=== PATIENT | male | born 1980 | race Caucasian/White ===

== ENCOUNTER 2017-01-26 01:47 | Emergency (ER) | payer SELFPAY ==
[~2017-01-26] VITALS: Ht 180.3 cm; Wt 67.6 kg
[~2017-01-26 01:47] MED LIST: CEPH-570 PO
[2017-01-26 01:51] VITALS: TEMP 36.7; Ht 180.3 cm; Wt 67.6 kg
[2017-01-26] MEDS ORDERED: XYLOCAINE 1%/SOD BICARB 20 ML VIAL INFIL ONE (02:30)
[2017-01-26] MEDS ORDERED: DIPHTHERIA/TETANUS/PERTUSSIS 0.5 ML SYR/VIAL IM. ONE (02:30)
--- NOTE | 2017-01-26 02:52 | EMERGENCY ROOM VISIT NOTE ---
ED Visit Note First contact with patient: 02:10 CHIEF COMPLAINT: Finger laceration HISTORY OF PRESENT ILLNESS: This 36-year-old male patient presents to the emergency department by private vehicle after cutting the right second finger just prior to arrival. The patient states that his was trying to cut her wrist and he accidentally cut himself on the knife when trying to wrestle it away from her. The bleeding has stopped. Denies weakness or numbness of the finger. The patient has full range of motion of the fingers. The patient rates the pain as stinging and 1/10. The patient denies any other injuries. The patient's tetanus shot is not up to date. REVIEW OF SYSTEMS: A 6 system review of systems was completed with positives and pertinent negatives listed in the HPI. ALLERGIES: No known drug allergies MEDICATIONS: No chronic medications PMH: No significant past medical history SOCIAL HISTORY: The patient lives locally with family. PHYSICAL EXAM: Vital Signs: Reviewed Nurse's notes, vital signs stable. GENERAL : This is a 36-year-old male, in no acute distress, well developed, well nourished. SKIN: There is a 1.5 cm long laceration on the lateral aspect of the right second finger. The edges gape apart with traction. There is no foreign material in the wound and it looks clean. There is no active bleeding. No deep structures such as tendons, bones, or significant blood vessels are seen in the base of the wound. Extension and flexion of the finger is full and strong. Full range of motion of the wrist and other fingers. Capillary refill less than 2 seconds. Normal sensation to light and sharp touch. EMERGENCY DEPARTMENT COURSE: I examined the patient. Verbal consent was obtained to perform the procedure. Using sterile technique the wound was cleansed with Betadine. 2 ml of 1% buffered lidocaine was injected directly into the wound to anesthetize the patient. The area was sterilely draped. Once the patient was anesthetized, the wound was copiously irrigated under pressure with sterile saline. The wound was explored and there were no deep structures injured. The laceration was repaired using 5 simple interrupted 5-0 nylon sutures. The patient tolerated the procedure well. Hemostasis was achieved. The area was cleaned with sterile saline and dressed with bacitracin ointment and bandage. The patient was given a tetanus booster. The patient was discharged home in good condition. Medication reconciliation: I attest that I have personally reviewed the patient 's current medication list. Blood pressure screening: Patient was found to have normal blood pressure on screening and does not require follow-up. DIAGNOSIS: Finger laceration Problem List Medical Problems: (1) Cellulitis of leg Status: Resolved (2) Poison solomon Status: Resolved Surgical Problems: (1) S/P appendectomy Status: Resolved Current/Historical Medications No Active Prescriptions or Reported Meds Allergies Coded Allergies: No Known Allergies (Verified , 01/26/17) Vital Signs Date Time Temp Pulse Resp B/P (MAP) Pulse Ox O2 Delivery O2 Flow Rate FiO2 01/26/17 03:15 83 126/82 96 01/26/17 01:51 36.7 97 18 122/92 98 Room Air Medications Administered Medications (Trade) Dose Ordered Sig/Matilde Route Start Time Stop Time Status Last Admin Dose Admin Diphtheria/ Pertussis/Tetanus Vacc (Adacel Inj) 0.5 ml ONCE ONCE IM. 01/26/17 02:30 01/26/17 02:31 DC 01/26/17 02:30 0.5 ML Departure Information Impression Primary Impression: Laceration of finger Dispostion Home / Self-Care Condition GOOD Prescriptions No Active Prescriptions or Reported Meds Referrals No Doctor, Assigned (PCP) Patient Instructions My [facility] Additional Instructions You have received 5 sutures on your finger. These sutures are NOT dissolvable and WILL need to be removed by a health care provider in 10-12 days. You can return to the Emergency Department or contact your Primary Care Provider to have the sutures removed. Proper wound care is essential for adequate wound healing and infection prevention. You can shower and clean the wound with soap and water. Do not scour over the wound, pat dry with a towel. Do not submerse the wound (i.e. bathe or dish wash) until the sutures have been removed. You can use an antibiotic ointment with a dressing over the wound for the next 3-4 days. After this time you may leave the wound dry and open to the air. If crust develops over the wound you can use a Q-tip to apply a 1:1 peroxide:water solution to clean the wound. Look for signs of infection of the wound including: increased pain, swelling, foul discharge, streaking, or increased temperature. If any of these are noticed you should return to the Emergency Department for further assessment and treatment. As with any laceration you may have received nerve damage to the surrounding tissues. This damage may or may not be permanent. You should keep the area covered with sunscreen for the first 6 months to 1 year when at risk for exposure to help minimize scarring. You can also use scar reducing creams or Vitamin E oil to help minimize scarring. For pain control, you can use the following [id number] medicines (if >12 yo): - Regular strength (325mg/tab) Tylenol (acetaminophen) 2 tabs every 4-6 hours as needed. Do not exceed 12 tablets in a 24 hour period. Avoid taking more than 4 grams (4000 mg) of Tylenol per day. This includes any other sources of acetaminophen you may take on a regular basis. - Regular strength (200 mg/tab) Advil (ibuprofen) 1-2 tabs every 4-6 hours as needed. Do not exceed a dose of 3200 mg per day. Return to the emergency department if your symptoms worsen despite treatment course outlined above. Problem Qualifiers Primary Impression: Laceration of finger Encounter type: initial encounter Finger: index finger Damage to nail status: without damage Foreign body presence: without foreign body Laterality: right Qualified Codes: S61.210A - Laceration without foreign body of right index finger without damage to nail, initial encounter
[2017-01-26 03:15] VITALS: BP 126/82; PULSE 83; O2SAT 96
== END 2017-01-26 03:15 | disposition home or self-care (01) ==
LOC: C.EDB 01:48
DX: S61.210A Laceration without foreign body of right index finger without damage to nail, initial encounter (principal); W26.0XXA Contact with knife, initial encounter; Z23 Encounter for immunization

== ENCOUNTER → 2017-02-25 | Outpatient (CLI) | payer OTHER | END | disposition home or self-care (01) | LOC: C.LAB 04:09 | DX: Z02.83 Encounter for blood-alcohol and blood-drug test (principal) ==

== ENCOUNTER 2020-10-13 19:44 | Inpatient (IN) ==
--- OUTSIDE RECORDS SUMMARY | 2020-10-13 19:46 | External Medical Summary | Continuity of Care Document ---
:1980 Author Name Ronnie Patricio, Provider Address Unavailable Unavailable , Care Team Providers Name Role Phone [place] Jos[email or web address] [place], [place] Unavailable Unavailable Problems Infected epidermoid cyst (706.2) (L72.0) Allergies and Adverse Reactions No Known Drug Allergies (Allergy) Medications Bactrim DS 800-160 MG Oral Tablet Start: 11-Dec-2015 Refills: 0 Procedures History of Appendectomy Status: Complete d Immunizations Immunizations not documented Family History Mother No pertinent family history (V49.89) (Z78.9) Status: Active Father No pertinent family history (V49.89) (Z78.9) Status: Active Social History - Smoking Status Smokes tobacco daily Plan of Treatment Planned Observations Planned Goals not documented Results No Known Results Results not documented Encounters Appointment; Fina Joshi M.D. 11-Mar-2016 13:00 Encounter Diagnosis: Problem not documented
--- OUTSIDE RECORDS SUMMARY | 2020-10-13 19:46 | External Medical Summary | Continuity of Care Document ---
:1980 Author Name Ronnie Patricio, Provider Address Unavailable Unavailable , Care Team Providers Name Role Phone Fina Joshi [email or web address] [place] PCP, UNKNOWN Unavailable Unavailable Problems Infected epidermoid [...]
[2020-10-13] MEDS ORDERED: SODIUM CHLORIDE 0.9% 1000ML 1,000 ML IV ONE ×2 (20:57→23:25)
[2020-10-13] MEDS ORDERED: ONDANSETRON INJ 2 MG/ML 2 ML VIAL IV STA ×2 (20:57→23:25)
[2020-10-13] MEDS ORDERED: MoRPHine SULFATE 4 MG/ML 1 ML CARP\\VIAL IV STA ×2 (20:57→23:25)
[2020-10-13 22:13] LABS: INR 1.2 (0.9-1.1); Partial Thromboplastin Ratio 1.1; Partial Thromboplastin Time 27.9 Seconds (21.0-31.0); Prothrombin Time 11.9 Seconds (9.0-12.0)
[2020-10-13 22:21] LABS: Hematocrit (blood only) 38.1 % (42-52); Hemoglobin 13.7 g/dL (14.0-18.0); Mean Corpuscular Hemoglobin 36.5 pg (25-34); Mean Corpuscular Volume 101.6 fL (80-100); Mean Platelet Volume 10.9 fL (7.4-10.4); Platelet Count 93 K/uL (130-400); RDW Coefficient of Variation 14.2 % (11.5-14.5); RDW Standard Deviation 52.3 fL (36.4-46.3); Red Blood Count 3.75 M/uL (4.7-6.1); White Blood Count 9.71 K/uL (4.8-10.8)
[2020-10-13 22:23] LABS: Basophils # (auto) 0.01 K/uL (0-0.2); Basophils % (auto) 0.1 %; Immature Granulocytes # (auto) 0.03 K/uL (0.00-0.02); Immature Granulocytes % (auto) 0.3 %; Lymphocytes # (auto) 1.05 K/uL (1.2-3.4); Lymphocytes % (auto) 10.8 %; Monocytes # (auto) 1.28 K/uL (0.11-0.59); Monocytes % (auto) 13.2 %; Neutrophils # (auto) 7.34 K/uL (1.4-6.5); Neutrophils % (auto) 75.6 %; Platelet Estimate Decreased (Normal)
[2020-10-13 22:29] LABS: Albumin Level 3.2 gm/dl (3.4-5.0); BUN Creatinine Ratio 10.5 (10-20); Bilirubin Direct 7.3 mg/dl (0-0.2); Bilirubin,Total 8.9 mg/dl (0.2-1); Calcium 10.1 mg/dl (8.5-10.1); Creatinine Clr Calc Pharmacy 137.8 ml/min; Est GFR (African American) 140.2; Est GFR (Non-African American) 120.9; Magnesium 1.6 mg/dl (1.8-2.4); Total Protein 7.5 gm/dl (6.4-8.2)
--- NOTE | 2020-10-14 00:20 | Emergency Department Note ---
History of Present Illness General Chief Complaint: Abdominal Pain Stated Complaint: ABDOMINAL PAINS, CAN'T EAT Time Seen by Provider: 10/13/20 20:32 History of Present Illness Provider Complaint: abdominal pain Onset (ago): 3 day(s) Pain Consistency: constant Location: diffuse Severity: moderate Maximum Pain Intensity: 8 Current Pain Intensity: 8 Quality: + stabbing and + sharp Relieved By: + nothing Exacerbated By: + nothing Context: no foreign travel, no possible food poisoning, no recent antibiotic use and no recent surgery/procedure Associated Symptoms: + nausea, + vomiting and + hematemesis (Possible coffee- ground emesis); no diarrhea, no fever, no chills, no constipation, no dysuria, no hematochezia, no melena, no hematuria, no headache, no neck pain, no back pain and no chest pain Home Medications Medication Instructions Recorded Confirmed Type ibuprofen 200 mg PO Q6H PRN 10/13/20 10/13/20 History multivitamin [Multiple Vitamin] 1 tab PO DAILY 10/13/20 10/13/20 History Allergies Allergy/AdvReac Type Severity Reaction Status Date / Time No Known Allergies Allergy Unknown Verified 10/13/20 22:02 Past Med/Surg History Medical History (Updated 10/14/20 @ 01:06 by Baltazar Rucker) Erythema migrans (Lyme disease) No pertinent family history Surgical History (Updated 10/14/20 @ 00:18 by Baltazar Rucker) No pertinent past surgical history Social History (Updated 10/14/20 @ 00:19 by Baltazar Rucker) Smoking Status: Current every day smoker Hx Alcohol Use: Yes Alcohol type: hard liquor Alcohol Intake Frequency Comment: Patient drinks a quarter bottle of rum every day Preferred Language: Hebrew Feels Safe at Home: Yes Review of Systems A total of 10 systems reviewed and were otherwise negative Physical Exam Vital Signs: Vital Signs - 24 hr 10/13/20 19:45 10/13/20 21:30 10/13/20 21:34 Temperature 36.6 C Temperature Source Oral Pulse Rate 110 H 103 H 101 H Pulse Rate from Sp O2 Sensor 103 H 101 H Pulse Rhythm Regular Pulse Strength Normal Respiratory Rate 20 20 18 Respiratory Effort / Characteristics Non-Labored Sponta neous Respiratory Depth Normal Respiratory Patter n Regular Blood Pressure 113/82 139/95 Blood Pressure Joana n 92 109 Blood Pressure Pos ition Sitting Pulse Oximetry 96 97 98 Oxygen Delivery Me thod Room Air Sepsis Recent Feve r Within 48 Hours No Sepsis New/Unexpla ined Change in Men ana Status No Sepsis Action Take n by Nursing No Action Required 10/13/20 21:40 10/13/20 21:42 10/13/20 22:00 Temperature Temperature Source Pulse Rate 98 H 95 H Pulse Rate from Sp O2 Sensor 97 H 95 H Pulse Rhythm Pulse Strength Respiratory Rate 13 15 Respiratory Effort / Characteristics Respiratory Depth Respiratory Patter n Blood Pressure 142/91 H Blood Pressure Joana n 108 Blood Pressure Pos ition Pulse Oximetry 96 99 97 Oxygen Delivery Me thod Room Air Sepsis Recent Feve r Within 48 Hours Sepsis New/Unexpla ined Change in Men ana Status Sepsis Action Take n by Nursing 10/13/20 22:01 10/13/20 22:20 10/13/20 22:30 Temperature Temperature Source Pulse Rate 95 H 99 H 105 H Pulse Rate from Sp O2 Sensor 95 H 98 H 102 H Pulse Rhythm Pulse Strength Respiratory Rate 13 19 16 Respiratory Effort / Characteristics Respiratory Depth Respiratory Patter n Blood Pressure 136/101 H Blood Pressure Joana n 112 Blood Pressure Pos ition Pulse Oximetry 96 98 97 Oxygen Delivery Me thod Sepsis Recent Feve r Within 48 Hours Sepsis New/Unexpla ined Change in Men ana Status Sepsis Action Take n by Nursing 10/13/20 22:40 10/13/20 23:00 10/13/20 23:30 Temperature Temperature Source Pulse Rate 118 H 104 H 104 H Pulse Rate from Sp O2 Sensor 117 H 102 H 101 H Pulse Rhythm Pulse Strength Respiratory Rate 22 12 13 Respiratory Effort / Characteristics Respiratory Depth Respiratory Patter n Blood Pressure 135/95 138/91 Blood Pressure Joana n 108 106 Blood Pressure Pos ition Pulse Oximetry 96 96 97 Oxygen Delivery Me thod Sepsis Recent Feve r Within 48 Hours Sepsis New/Unexpla ined Change in Men ana Status Sepsis Action Take n by Nursing Physical Exam: Physical Exam GENERAL: He is oriented to person, place, and time. He appears well-developed and well-nourished. He does not appear distressed. HENT: Exam performed. - Head: Normocephalic and atraumatic. - Right Ear: External ear normal. No mastoid tenderness. - Left Ear: External ear normal. No mastoid tenderness. - Mouth/Throat: The oropharynx is clear and moist. No trismus in the jaw. No dental abscesses or uvula swelling. No oropharyngeal exudate or tonsillar abscesses. EYES: Conjunctivae and EOM are normal. Pupils are equal, round, and reactive to light. Right eye exhibits no discharge. Left eye exhibits no discharge. scleral icterus Present. NECK: Normal range of motion. Neck supple. No JVD present. No spinous process tenderness present. No carotid bruit present. No rigidity. No tracheal deviation and normal range of motion present. No Brudzinski's sign and no Kernig's sign noted. CV: Normal rate, regular rhythm, normal heart sounds and intact distal pulses. There is no peripheral edema. Palpable radial pulses bue. PULM/CHEST: Effort normal and breath sounds normal. No respiratory distress. No stridor. He has no wheezes. He has no rales. - Chest Wall: He exhibits no tenderness. ABD: Diffuse pain on palpation of the abdomen. MUSC/SKEL: Normal range of motion. There is no peripheral edema, tenderness or deformity. LYMPH: No cervical adenopathy. NEURO: He is alert and oriented to person, place, and time. He has normal strength. No cranial nerve deficit or sensory deficit. Coordination and gait normal. GCS eye subscore is 4. GCS verbal subscore is 5. GCS motor subscore is 6 . Cerebellar tests wnl. SKIN: Patient appears jaundiced. PSYCH: He has a normal mood and affect. Behavior is normal. Judgment and thought content normal. Course Course 2031: The patient was evaluated in room C6. A complete history and physical exam was performed Cardiac monitoring: An order was placed for continuous cardiac monitoring. The monitor shows a rate of 110 with sinus rhythm 2325: Vital signs stable. Patient has not had any vomiting in the emergency department status post Zofran administration. Labs show an elevated lipase of 4543. Patient does have an alcohol level of 201.7. He does state he drank alcohol prior to coming to the emergency department. Bilirubin level is 8.9. Direct bilirubin 7.3. AST 247 ALT 57. [facility] Garcia's team will be notified. 0105: CT of the abdomen does confirm pancreatitis. Potassium and magnesium replacement began in the emergency department. Administered Medications Magnesium Sulfate/Dextrose (Magnesium Sulfate / D5w) 1 gm in 100 mls @ 100 mls/hr IV NOW STA Stop: 10/14/20 01:25 Last Admin: 10/14/20 00:41 Dose: 100 mls/hr Documented by: [id number] Discontinued Medications Sodium Chloride (Nss 1000ml) 1,000 mls @ 999 mls/hr IV .Q1H1M ONE Stop: 10/13/20 21:57 Last Infusion: 10/13/20 22:36 Dose: 0 mls/hr Documented by: [id number] Admin: 10/13/20 21:28 Dose: 999 mls/hr Documented by: [id number] Sodium Chloride (Nss 1000ml) 1,000 mls @ 999 mls/hr IV .Q1H1M ONE Stop: 10/14/20 00:25 Last Admin: 10/13/20 23:34 Dose: 999 mls/hr Documented by: [id number] Ioversol (Ioversol 100ml) 100 ml IV ONCE ONE Stop: 10/14/20 00:43 Last Admin: 10/14/20 00:42 Dose: 92 ml Documented by: [id number] Morphine Sulfate (Morphine Sulfate 4 Mg/Ml 1 Ml Carp\Vial) 4 mg IV NOW STA Stop: 10/13/20 20:58 Last Admin: 10/13/20 21:28 Dose: 4 mg Documented by: [id number] Morphine Sulfate (Morphine Sulfate 4 Mg/Ml 1 Ml Carp\Vial) 4 mg IV NOW STA Stop: 10/13/20 23:26 Last Admin: 10/13/20 23:34 Dose: 4 mg Documented by: [id number] Ondansetron HCl (Ondansetron Inj 2 Mg/Ml 2 Ml Vial) 4 mg IV NOW STA Stop: 10/13/20 20:58 Last Admin: 10/13/20 21:28 Dose: 4 mg Documented by: [id number] Ondansetron HCl (Ondansetron Inj 2 Mg/Ml 2 Ml Vial) 4 mg IV NOW STA Stop: 10/13/20 23:26 Last Admin: 10/13/20 23:34 Dose: 4 mg Documented by: [id number] Medical Decision Making Laboratory Data Result diagrams: 10/13/20 21:22 10/13/20 21:22 Lab Results 10/13/20 10/13/20 10/13/20 Range/Units 21:19 21:22 21:22 WBC 9.71 (4.8-10.8) K/uL RBC 3.75 L (4.7-6.1) M/uL Hgb 13.7 L (14.0-18.0) g/dL Hct 38.1 L (42-52) % MCV 101.6 H (80-100) fL MCH 36.5 H (25-34) pg MCHC 36.0 (32-36) g/dL RDW Std Deviation 52.3 H (36.4-46.3) fL RDW Coeff of Arabella 14.2 (11.5-14.5) % Plt Count 93 L (130-400) K/uL MPV 10.9 H (7.4-10.4) fL Immature Gran % (Auto) 0.3 % Neut % (Auto) 75.6 % Lymph % (Auto) 10.8 % [place] % (Auto) 13.2 % Eos % (Auto) 0.0 % Baso % (Auto) 0.1 % Neut # (Auto) 7.34 H (1.4-6.5) K/uL Lymph # (Auto) 1.05 L (1.2-3.4) K/uL [place] # (Auto) 1.28 H (0.11-0.59) K/uL Eos # (Auto) 0.00 (0-0.5) K/uL Baso # (Auto) 0.01 (0-0.2) K/uL Immature Gran # (Auto) 0.03 H (0.00-0.02) K/uL Platelet Estimate Decreased L (Normal) PT (9.0-12.0) Seconds INR (0.9-1.1) APTT (21.0-31.0) Seconds PTT Ratio Sodium (136-145) mmol/L Potassium (3.5-5.1) mmol/L Chloride (98-107) mmol/L Carbon Dioxide (21-32) mmol/L Anion Gap (3-11) BUN (7-18) mg/dl Creatinine (0.6-1.4) mg/dl Est Cr Clr Drug Dosing ml/min Est GFR ( Amer) Est GFR (Non-Af Amer) BUN/Creatinine Ratio (10-20) Glucose (70-99) mg/dl POC Glucose 134 H (70-99) mg/dl Calcium (8.5-10.1) mg/dl Magnesium (1.8-2.4) mg/dl Total Bilirubin (0.2-1) mg/dl Direct Bilirubin (0-0.2) mg/dl AST (15-37) U/L ALT (12-78) U/L Alkaline Phosphatase (45-117) U/L Total Protein (6.4-8.2) gm/dl Albumin (3.4-5.0) gm/dl Lipase (73-393) U/L Urine Color Urine Appearance (Clear) Urine pH (4.5-7.5) Ur Specific [place] (1.000-1.030) Urine Protein (Negative) Urine Glucose (UA) (Negative) Urine Ketones (Negative) Urine Blood (Negative) Urine Nitrite (Negative) Urine Bilirubin (Negative) Urine Urobilinogen (Negative) Ur Leukocyte Esterase (Negative) Ethyl Alcohol mg/dL (0-3) mg/dl COVID-19 Eval Order Blood Type O Negative Antibody Screen NEGATIVE 10/13/20 10/13/20 10/13/20 Range/Units 21:22 21:22 21:22 WBC (4.8-10.8) K/uL RBC (4.7-6.1) M/uL Hgb (14.0-18.0) g/dL Hct (42-52) % MCV (80-100) fL MCH (25-34) pg MCHC (32-36) g/dL RDW Std Deviation (36.4-46.3) fL RDW Coeff of Arabella (11.5-14.5) % Plt Count (130-400) K/uL MPV (7.4-10.4) fL Immature Gran % (Auto) % Neut % (Auto) % Lymph % (Auto) % [place] % (Auto) % Eos % (Auto) % Baso % (Auto) % Neut # (Auto) (1.4-6.5) K/uL Lymph # (Auto) (1.2-3.4) K/uL [place] # (Auto) (0.11-0.59) K/uL Eos # (Auto) (0-0.5) K/uL Baso # (Auto) (0-0.2) K/uL Immature Gran # (Auto) (0.00-0.02) K/uL Platelet Estimate (Normal) PT 11.9 (9.0-12.0) Seconds INR 1.2 H (0.9-1.1) APTT 27.9 (21.0-31.0) Seconds PTT Ratio 1.1 Sodium 129 L (136-145) mmol/L Potassium 3.0 L (3.5-5.1) mmol/L Chloride 89 L (98-107) mmol/L Carbon Dioxide 24 (21-32) mmol/L Anion Gap 16.0 H (3-11) BUN 7 (7-18) mg/dl Creatinine 0.66 (0.6-1.4) mg/dl Est Cr Clr Drug Dosing 137.8 ml/min Est GFR ( Amer) 140.2 Est GFR (Non-Af Amer) 120.9 BUN/Creatinine Ratio 10.5 (10-20) Glucose 112 H (70-99) mg/dl POC Glucose (70-99) mg/dl Calcium 10.1 (8.5-10.1) mg/dl Magnesium 1.6 L (1.8-2.4) mg/dl Total Bilirubin 8.9 H (0.2-1) mg/dl Direct Bilirubin 7.3 H (0-0.2) mg/dl AST 247 H (15-37) U/L ALT 57 (12-78) U/L Alkaline Phosphatase 531 H (45-117) U/L Total Protein 7.5 (6.4-8.2) gm/dl Albumin 3.2 L (3.4-5.0) gm/dl Lipase 4543 H (73-393) U/L Urine Color Urine Appearance (Clear) Urine pH (4.5-7.5) Ur Specific [place] (1.000-1.030) Urine Protein (Negative) Urine Glucose (UA) (Negative) Urine Ketones (Negative) Urine Blood (Negative) Urine Nitrite (Negative) Urine Bilirubin (Negative) Urine Urobilinogen (Negative) Ur Leukocyte Esterase (Negative) Ethyl Alcohol mg/dL 201.7 H (0-3) mg/dl COVID-19 Eval Order Blood Type Antibody Screen 10/14/20 10/14/20 Range/Units 00:30 00:38 WBC (4.8-10.8) K/uL RBC (4.7-6.1) M/uL Hgb (14.0-18.0) g/dL Hct (42-52) % MCV (80-100) fL MCH (25-34) pg MCHC (32-36) g/dL RDW Std Deviation (36.4-46.3) fL RDW Coeff of Arabella (11.5-14.5) % Plt Count (130-400) K/uL MPV (7.4-10.4) fL Immature Gran % (Auto) % Neut % (Auto) % Lymph % (Auto) % [place] % (Auto) % Eos % (Auto) % Baso % (Auto) % Neut # (Auto) (1.4-6.5) K/uL Lymph # (Auto) (1.2-3.4) K/uL [place] # (Auto) (0.11-0.59) K/uL Eos # (Auto) (0-0.5) K/uL Baso # (Auto) (0-0.2) K/uL Immature Gran # (Auto) (0.00-0.02) K/uL Platelet Estimate (Normal) PT (9.0-12.0) Seconds INR (0.9-1.1) APTT (21.0-31.0) Seconds PTT Ratio Sodium (136-145) mmol/L Potassium (3.5-5.1) mmol/L Chloride (98-107) mmol/L Carbon Dioxide (21-32) mmol/L Anion Gap (3-11) BUN (7-18) mg/dl Creatinine (0.6-1.4) mg/dl Est Cr Clr Drug Dosing ml/min Est GFR ( Amer) Est GFR (Non-Af Amer) BUN/Creatinine Ratio (10-20) Glucose (70-99) mg/dl POC Glucose (70-99) mg/dl Calcium (8.5-10.1) mg/dl Magnesium (1.8-2.4) mg/dl Total Bilirubin (0.2-1) mg/dl Direct Bilirubin (0-0.2) mg/dl AST (15-37) U/L ALT (12-78) U/L Alkaline Phosphatase (45-117) U/L Total Protein (6.4-8.2) gm/dl Albumin (3.4-5.0) gm/dl Lipase (73-393) U/L Urine Color [place] Urine Appearance Clear (Clear) Urine pH 6.5 (4.5-7.5) Ur Specific [place] 1.030 (1.000-1.030) Urine Protein Trace H (Negative) Urine Glucose (UA) Negative (Negative) Urine Ketones 1+ H (Negative) Urine Blood Negative (Negative) Urine Nitrite Positive A (Negative) Urine Bilirubin 3+ H (Negative) Urine Urobilinogen Negative (Negative) Ur Leukocyte Esterase Trace H (Negative) Ethyl Alcohol mg/dL (0-3) mg/dl COVID-19 Eval Order Covid19 IDNow [facility] Blood Type Antibody Screen Imaging Data My Impression: Chest x-ray negative. Airway clear. No pneumothorax. No consolidation. No cardiomegaly or cephalization.. No free air under the diaphragm. No fractures of the skeletal structures. Radiologist's Impression: Preliminary Findings Only See Final Report For Complete Findings CT ABDOMEN & PELVIS With Contrast: Mild posterior dependent atelectasis. Diffuse fatty liver. Over distention of the gallbladder. Mild ascites with extensive fluid and stranding surrounding the pancreas, a combination of findings which may indicate pancreatitis, correlation with amylase and lipase recommended. Possible tiny nonobstructive stone within the upper pole of the left kidney measuring 2 mm. Remainder bilateral kidneys, spleen and bilateral adrenal glands are unremarkable. Borderline thickening of the wall to the proximal jejunum which may indicate nonspecific enteritis. Moderate fecal debris within the right colon. Appendix not seen with no inflammation in the region of the cecum. No bowel obstruction. Mild to moderate free fluid in the pelvis. Normal size of prostate gland. Normal urinary bladder. Unremarkable bony structures. Radiologist: Georgina Batres MD Study ready at 00:29 and initial results transmitted at 00:55 ECG Data Indication: abdominal pain Rate (beats per minute): 102 Rhythm: sinus tachycardia Findings: no ST depression, no ST elevation and no prolonged QT MDM Narrative 2031: The patient was evaluated in room C6. A complete history and physical exam was performed Cardiac monitoring: An order was placed for continuous cardiac monitoring. The monitor shows a rate of 110 with sinus rhythm 2325: Vital signs stable. Patient has not had any vomiting in the emergency department status post Zofran administration. Labs show an elevated lipase of 4543. Patient does have an alcohol level of 201.7. He does state he drank alcohol prior to coming to the emergency department. Bilirubin level is 8.9. Direct bilirubin 7.3. AST 247 ALT 57. We [facility] Dr. Garcia's team will be notified. 0105: CT of the abdomen does confirm pancreatitis. Potassium and magnesium replacement began in the emergency department. Impression & Plan Pancreatitis, Jaundice, Hypomagnesemia, Hypokalemia Discharge Plan Visit Data Chief Complaint: Abdominal Pain Stated Complaint: ABDOMINAL PAINS, CAN'T EAT ED Provider: Baltazar Rucker Discharge Problem: Pancreatitis, Jaundice, Hypomagnesemia, Hypokalemia Patient Disposition: Admitted As Inpatient Forms Stand Alone Forms: My [facility] Prescriptions Prescriptions: No Action multivitamin [Multiple Vitamin] Tablet 1 tab PO DAILY RF: 0 ibuprofen 200 mg Tablet 200 mg PO Q6H PRN (Reason: Pain) RF: 0 Referrals Referrals: PCP,NO [Primary Care Provider] - Discharge Problem: Pancreatitis Qualifiers: Chronicity: acute Pancreatitis type: alcohol induced Acute pancreatitis complication: unspecified Qualified Code(s): K85.20 - Alcohol induced acute pancreatitis without necrosis or infection
[2020-10-14] MEDS ORDERED: MAGNESIUM SULFATE / D5W 1 GM/100 ML BAG IV STA (00:26)
[2020-10-14] MEDS ORDERED: POTASSIUM CHLORIDE 40 MEQ in SODIUM CHLORIDE 0.9% 1000ML 1,000 ML IV SCH (00:30)
--- NOTE | 2020-10-14 00:35 | History & Physical Report ---
Date of Service October 14, 2020 Assessment & Plan (1) Pancreatitis: Alcoholic pancreatitis/diffuse fatty liver/jaundice/ascites- NPO Continue IV fluid resuscitation Follow serial laboratories MELD score 17 Follow serial CBC with differential, chemistry profile and lipase levels Zofran 4 mg IV every 6 hours as needed Famotidine 20 mg IV every 12 hours Check an acute hepatitis profile for potential additive injury Present on Admission?: Yes (2) Fatty liver: See above Present on Admission?: Yes (3) Jaundice: See above Present on Admission?: Yes (4) Alcohol abuse: Discussed importance of cessation AWSS protocol with gabapentin p.o. and as needed Ativan IV Thiamine 100 mg p.o. daily Folic acid 1 mg p.o. daily Nephrocaps 1 p.o. daily Present on Admission?: Yes (5) Ascites: Paracentesis not indicated. Present on Admission?: Yes (6) Hypokalemia: Hyponatremia/hypokalemia/hypomagnesemia- NSS + KCl 20 mEq 100 mils per hour Receiving IV magnesium replacement in the ED Repeat laboratories in a.m. Present on Admission?: Yes (7) Hypomagnesemia: See above Present on Admission?: Yes History of Present Illness Chief Complaint: The patient presents to the emergency department with complaint of generalized abdominal pains, and has not eaten anything for 4 days. Primary Care Provider: NO PCP The patient is a 40-year-old male with a past medical history including leg cellulitis, who presents to the emergency department with generalized abdominal pains and inability to eat food for the past 4 days. He denies any recent travel or sick exposures. He reports that his last alcohol intake was earlier in the day before arrival. Work-up in the emergency department included the following abnormal laboratories: Sodium 129, potassium 3.0, total bilirubin 8.9, direct bilirubin 7.3, AST 247, alkaline phosphatase 531, albumin 3.2, lipase 4543, magnesium 1.6, alcohol level 201.7. Patient was COVID-19 negative in the ED Imaging studies, CT of abdomen and pelvis with contrast: Diffuse fatty liver. Over distention of the gallbladder. Mild ascites with extensive fluid and stranding surrounding the pancreas, suggesting pancreatitis. Borderline thickening of the wall to the proximal jejunum indicating a possible enteritis. Moderate fecal debris within the right colon. Mild to moderate free fluid in the pelvis. Allergies Allergy/AdvReac Type Severity Reaction Status Date / Time No Known Allergies Allergy Unknown Verified 10/13/20 22:02 Home Medications Medication Instructions Recorded Confirmed Type ibuprofen 200 mg PO Q6H PRN 10/13/20 10/13/20 History multivitamin [Multiple Vitamin] 1 tab PO DAILY 10/13/20 10/13/20 History Past Med/Surg History Medical History (Updated 10/14/20 @ 04:50 by Shailesh Bourgeois MD) Erythema migrans (Lyme disease) No pertinent family history Surgical History (Updated 10/14/20 @ 00:18 by Baltazar Rucker) No pertinent past surgical history Social History (Updated 10/14/20 @ 00:19 by Baltazar Rucker) Smoking Status: Current every day smoker Second Hand Exposure: No; Do You Dip or Chew Tobacco: No; Tobacco Cessation Education Requested by Patient: No Hx Alcohol Use: Yes Alcohol type: hard liquor Alcohol Intake Frequency Comment: Patient drinks a quarter bottle of rum every day Hx Substance Use: Yes Last Used Substance: Days (ago) Preferred Language: Nigerian Communication Ability: Effective Asset Protection Detective Required: No Beliefs That Will Affect Care: None Current Living Situation: Family Other Information That Helps Us Care for You: No Feels Safe at Home: Yes Assistive Devices: Glasses Review of Systems Review of Systems: The patient denies chest pain, palpitations, shortness of breath, dyspnea on exertion, cough, lower extremity swelling, sore throat, fevers, chills, sweats, vomiting, blood in urine or stool, dysuria, urinary frequency or urgency, lightheadedness, dizziness, headache, memory loss, loss of consciousness, rash, abnormal bruising or bleeding, imbalance, focal weakness, numbness or tingling in arms or legs, back or neck pain, or night sweats. The review of systems is otherwise negative other than for that already noted above, and at least 10 systems have been reviewed. Physical Exam Physical Exam: The patient is awake, alert and oriented 3, well developed and well nourished, normocephalic and atraumatic, lying in bed and in no acute distress. HEENT--PERRL, EOMI, mucous membranes and oropharynx dry. Neck--supple. No JVD. No bruits. Thyroid normal, trachea midline, no adenopathy. Heart--normal S1 and S2. No murmurs, rubs or gallops. Lungs--clear bilaterally, no respiratory distress, no accessory muscle use. Abdomen--normal bowel sounds and soft. Tender epigastrium and right upper quadrant. Mildly distended. Extremities--no cyanosis or clubbing. No edema. Dermatologic--normal skin turgor, normal color, no abnormal lymph nodes, no rash. Neurologic--cranial nerves II through XII grossly intact. Rheumatologic--normal range of motion. Psychiatric--normal affect. Results & Data Results & Data ([facility]) Vital Signs (Past 12 Hours) Vital Signs Temp Pulse Resp BP Pulse Ox 10/13/20 23:30 104 H 13 138/91 97 10/13/20 23:00 104 H 12 135/95 96 10/13/20 22:40 118 H 22 96 10/13/20 22:30 105 H 16 136/101 H 97 10/13/20 22:20 99 H 19 98 10/13/20 22:01 95 H 13 96 10/13/20 22:00 95 H 15 142/91 H 97 10/13/20 21:42 99 10/13/20 21:40 98 H 13 96 10/13/20 21:34 101 H 18 98 10/13/20 21:30 103 H 20 139/95 97 10/13/20 19:45 97.9 F 110 H 20 113/82 96 Laboratory Results Laboratory Results WBC 9.71 K/uL (4.8-10.8) 10/13/20: RBC 3.75 M/uL (4.7-6.1) L 10/13/20: Hgb 13.7 g/dL (14.0-18.0) L 10/13/20 21: Hct 38.1 % (42-52) L 10/13/20 21: MCV 101.6 fL (80-100) H 10/13/20 21: MCH 36.5 pg (25-34) H 10/13/20: MCHC 36.0 g/dL (32-36) 10/13/20: RDW Std Deviation 52.3 fL (36.4-46.3) H 10/13/20: RDW Coeff of Arabella 14.2 % (11.5-14.5) 10/13/20: Plt Count 93 K/uL (130-400) L 10/13/20 21: MPV 10.9 fL (7.4-10.4) H 10/13/20 21: Immature Gran % (Auto) 0.3 % 10/13/20 21: Neut % (Auto) 75.6 % 10/13/20 21: Lymph % (Auto) 10.8 % 10/13/20 21: Spink % (Auto) 13.2 % 10/13/20 21: Eos % (Auto) 0.0 % 10/13/20 21: Baso % (Auto) 0.1 % 10/13/20: Neut # (Auto) 7.34 K/uL (1.4-6.5) H 10/13/20 21: Lymph # (Auto) 1.05 K/uL (1.2-3.4) L 10/13/20 21: Spink # (Auto) 1.28 K/uL (0.11-0.59) H 10/13/20 21:22 Eos # (Auto) 0.00 K/uL (0-0.5) 10/13/20 21: Baso # (Auto) 0.01 K/uL (0-0.2) 10/13/20 21: Immature Gran # (Auto) 0.03 K/uL (0.00-0.02) H 10/13/20 21: Platelet Estimate Decreased (Normal) L 10/13/20: PT 11.9 Seconds (9.0-12.0) 10/13/20: INR 1.2 (0.9-1.1) H 10/13/20 21: APTT 27.9 Seconds (21.0-31.0) 10/13/20: PTT Ratio 1.1 10/13/20 21: Sodium 129 mmol/L (136-145) L 10/13/20: Potassium 3.0 mmol/L (3.5-5.1) L 10/13/20 21: Chloride 89 mmol/L (98-107) L 10/13/20: Carbon Dioxide 24 mmol/L (21-32) 10/13/20 21: Anion Gap 16.0 (3-11) H 10/13/20 21:22 BUN 7 mg/dl (7-18) 10/13/20 21: Creatinine 0.66 mg/dl (0.6-1.4) 10/13/20 21: Est Cr Clr Drug Dosing 137.8 ml/min 10/13/20 21:22 Est GFR ( Amer) 140.2 10/13/20 21: Est GFR (Non-Af Amer) 120.9 10/13/20 21: BUN/Creatinine Ratio 10.5 (10-20) 10/13/20 21:22 Glucose 112 mg/dl (70-99) H 10/13/20 21: POC Glucose 134 mg/dl (70-99) H 10/13/20 21: Calcium 10.1 mg/dl (8.5-10.1) 10/13/20 21: Magnesium 1.6 mg/dl (1.8-2.4) L 10/13/20 21: Total Bilirubin 8.9 mg/dl (0.2-1) H 10/13/20 21: Direct Bilirubin 7.3 mg/dl (0-0.2) H 10/13/20 21:22 AST 247 U/L (15-37) H 10/13/20 21: ALT 57 U/L (12-78) 10/13/20 21: Alkaline Phosphatase 531 U/L (45-117) H 10/13/20 21:22 Total Protein 7.5 gm/dl (6.4-8.2) 10/13/20 21: Albumin 3.2 gm/dl (3.4-5.0) L 10/13/20 21: Lipase 4543 U/L (73-393) H 10/13/20 21:22 Urine Color [place] 10/14/20 00:30 Urine Appearance Clear (Clear) 10/14/20 00:30 Urine pH 6.5 (4.5-7.5) 10/14/20 00:30 Ur Specific Helix 1.030 (1.000-1.030) 10/14/20 00:30 Urine Protein Trace (Negative) H 10/14/20 00:30 Urine Glucose (UA) Negative (Negative) 10/14/20 00:30 Urine Ketones 1+ (Negative) H 10/14/20 00:30 Urine Blood Negative (Negative) 10/14/20 00:30 Urine Nitrite Positive (Negative) A 10/14/20 00:30 Urine Bilirubin 3+ (Negative) H 10/14/20 00:30 Urine Urobilinogen Negative (Negative) 10/14/20 00:30 Ur Leukocyte Esterase Trace (Negative) H 10/14/20 00:30 Urine WBC (Auto) 1-5 /hpf (0-5) 10/14/20 00:30 Urine RBC (Auto) 0-4 /hpf (0-4) 10/14/20 00:30 U Hyaline Cast (Auto) 10-30 /lpf (0-5) H 10/14/20 00:30 U Epithel Cells (Auto) 10-20 /lpf (0-5) H 10/14/20 00:30 Urine Bacteria (Auto) Negative (Negative) 10/14/20 00:30 Urine Mucus Present (None Prsent) A 10/14/20 00:30 Ethyl Alcohol mg/dL 201.7 mg/dl (0-3) H 10/13/20 21:22 COVID-19 Eval Order [facility] 10/14/20 00:38 SARS-CoV-2, RNA, NAAT NEGATIVE (NEGATIVE) 10/14/20 00:38 Blood Type O Negative 10/13/20 21:22 Antibody Screen NEGATIVE 10/13/20 21:22 Diagnostic Findings [facility] Patient: TETO CAMARA (Male) : 80 Status: ER Date: 10/14/20 00:27 Room #: History: PAIN IN ABD NO BM FOR FOUR DAYS Slices: [phone] Priors: Tech: Alek Castrejon @ [phone] Exams: CT ABDOMEN & PELVIS With Contrast Contrast: IV Amt: 92 ML OPTIRAY 320 Accession Numbers: [id number] Preliminary Findings Only See Final Report For Complete Findings CT ABDOMEN & PELVIS With Contrast: Mild posterior dependent atelectasis. Diffuse fatty liver. Over distention of the gallbladder. Mild ascites with extensive fluid and stranding surrounding the pancreas, a combination of findings which may indicate pancreatitis, correlation with amylase and lipase recommended. Possible tiny nonobstructive stone within the upper pole of the left kidney measuring 2 mm. Remainder bilateral kidneys, spleen and bilateral adrenal glands are unremarkable. Borderline thickening of the wall to the proximal jejunum which may indicate nonspecific enteritis. Moderate fecal debris within the right colon. Appendix not seen with no inflammation in the region of the cecum. No bowel obstruction. Mild to moderate free fluid in the pelvis. Normal size of prostate gland. Normal urinary bladder. Unremarkable bony structures. Radiologist: Georgina Batres MD Study ready at 00:29 and initial results transmitted at 00:55 *This report constitutes a preliminary interpretation only. Non-acute findings felt to be unrelated to the clinical presentation may not be discussed in this report. The study will be interpreted and a final report will be generated by the local Radiologist the following shift. To reach the hospital radiology department call [phone]. If a discrepancy is found between the preliminary and final interpretations of this study, please notify us via our Client Portal at [email or web address] under QA Exams.You can also fax this report with a description of the discrepancy, or include the final report, to our daytime fax number [phone].If faxing, please indicate the severity of discrepancy using one of the following categories: [ ] 1 - Agree/Informational [ ] 2 - Unlikely to Affect Management [ ] 3 - Possible Eventual Change of Management [ ] 4 - Probable Immediate Change of Management For all other patient related information, please fax us at [phone]. [id number] Code Status & VTE Plan VTE Prophylaxis Plan VTE Prophylaxis will be ordered: Yes PG Care Time/CCT Total # of Minutes Spent Total Time Spent with Patient: Total time spent is greater than 50% in coordination of care (as documented) at patient's floor/unit and/or counseling patient: Coding Level of Care Code 45549 Initial Inpt Care Lvl 3 Diagnoses Pancreatitis K85.20 Acute pancreatitis complication: unspecified Chronicity: acute Pancreatitis type: alcohol induced Fatty liver K76.0 Jaundice R17 Alcohol abuse F10.10 Ascites R18.8 Hypokalemia E87.6 Hypomagnesemia E83.42 (1) Pancreatitis Acute pancreatitis complication: unspecified Chronicity: acute Pancreatitis type: alcohol induced Qualified Code(s): K85.20 - Alcohol induced acute pancreatitis without necrosis or infection
[2020-10-14] MEDS ORDERED: OPTIRAY 320 100ml IV ONE (00:42)
[2020-10-14 00:46] LABS: Appearance Urine Clear (Clear); Bacteria Urine Automated Negative (Negative); Blood Urine Negative (Negative); Color Urine Orange; Glucose Urine UA Negative (Negative); Ketones Urine 1+ (Negative); Leukocyte Esterase Urine Trace (Negative); Nitrite Urine Positive (Negative); Protein Urine Trace (Negative); RBC Urine Automated 0-4 /hpf (0-4); Urobilinogen Urine Negative (Negative); pH Urine 6.5 (4.5-7.5)
[2020-10-14 01:01] LABS: Bilirubin Urine 3+ (Negative)
[2020-10-14 01:08] LABS: Mucus Urine Present (None Prsent)
[2020-10-14] MEDS ORDERED: ATIVAN IV ALCOHOL WITHDRAWL IV PRN (01:39)
[2020-10-14] MEDS ORDERED: ONDANSETRON INJ 2 MG/ML 2 ML VIAL IV PRN (01:39)
[2020-10-14] MEDS ORDERED: GABAPENTIN 800MG ALCOHOL WITHDRAWAL LOAD PO STA (01:39)
[2020-10-14] MEDS ORDERED: GABAPENTIN 400 MG CAP PO ONE (02:00)
[2020-10-14] MEDS ORDERED: KETOROLAC TROMETHAMINE 15 MG/ML VIAL IV ONE (02:27)
[2020-10-14] MEDS ORDERED: MoRPHine SULFATE 2 MG/ML CARP IV PRN (02:27)
[2020-10-14] MEDS: LORazepam 1 MG/2 ML VIAL IV PRN (02:30)
[2020-10-14] MEDS ORDERED: PROMETHAZINE HCL 6.25 MG in SODIUM CHLORIDE 0.9% 50 ML IV PRN (04:57)
[2020-10-14 06:17] LABS: Basophils # (auto) 0.01 K/uL (0-0.2); Basophils % (auto) 0.1 %; Eosinophils # (auto) 0.01 K/uL (0-0.5); Eosinophils % (auto) 0.1 %; Hematocrit (blood only) 34.9 % (42-52); Hemoglobin 12.4 g/dL (14.0-18.0); Immature Granulocytes # (auto) 0.04 K/uL (0.00-0.02); Immature Granulocytes % (auto) 0.3 %; Lymphocytes # (auto) 1.37 K/uL (1.2-3.4); Lymphocytes % (auto) 10.8 %; Mean Corpuscular Hemoglobin 35.7 pg (25-34); Mean Corpuscular Hgb Conc 35.5 g/dL (32-36); Mean Corpuscular Volume 100.6 fL (80-100); Mean Platelet Volume 10.9 fL (7.4-10.4); Monocytes # (auto) 1.31 K/uL (0.11-0.59); Monocytes % (auto) 10.4 %; Neutrophils # (auto) 9.91 K/uL (1.4-6.5); Neutrophils % (auto) 78.3 %; Platelet Count 112 K/uL (130-400); RDW Coefficient of Variation 14.4 % (11.5-14.5); RDW Standard Deviation 52.7 fL (36.4-46.3); Red Blood Count 3.47 M/uL (4.7-6.1); White Blood Count 12.65 K/uL (4.8-10.8)
[2020-10-14 07:01] LABS: Albumin Globulin Ratio 0.7 (0.9-2); Albumin Level 2.8 gm/dl (3.4-5.0); BUN Creatinine Ratio 11.3 (10-20); Bilirubin,Total 8.7 mg/dl (0.2-1); Calcium 9.2 mg/dl (8.5-10.1); Creatinine Clr Calc Pharmacy 134.7 ml/min; Est GFR (African American) 140.2; Est GFR (Non-African American) 120.9; Globulin 3.9 gm/dl (2.5-4.0); Phosphorus 3.2 mg/dl (2.5-4.9); Potassium 3.7 mmol/L (3.5-5.1); Total Protein 6.7 gm/dl (6.4-8.2)
--- NOTE | 2020-10-14 07:05 | XRay Report ---
XR chest 1V portable HISTORY: 40 years-old Male abd pain hemetemesis acute chest and abdominal pain COMPARISON: CT abdomen and pelvis of same day TECHNIQUE: Portable AP view of the chest FINDINGS: Cardiomediastinal and hilar silhouettes are within normal limits. No pneumothorax, pleural effusion, airspace consolidation or overt pulmonary edema. Bones of the chest appear grossly intact. IMPRESSION: No acute process. ACT 112: Negative or not required by law. The above report was generated using voice recognition software. It may contain grammatical, syntax o r spelling errors. Electronically signed by: Tony Crawley M.D. 10/14/2020 7:03 AM
[2020-10-14] MEDS ORDERED: GABAPENTIN 1200MG ALCOHOL WITHDRAWAL LOAD PO STA (07:27)
[2020-10-14] MEDS: LORazepam 2 MG/4 ML VIAL IV PRN ×4 (07:33→19:32)
--- NOTE | 2020-10-14 07:33 | CT Scan Report ---
ABDOMEN AND PELVIS CT WITH IV CONTRAST CT DOSE: 328.40 mGy.cm HISTORY: Generalized abdominal pain. Hematemesis. TECHNIQUE: Multiaxial CT images of the abdomen and pelvis were performed following the use of intrave nous contrast. A dose lowering technique was utilized adhering to the principles of ALARA. COMPARISON STUDY: None. FINDINGS: The lung bases are essentially clear. No pneumoperitoneum. No pneumatosis. No fractures wit hin the visualized osseous structures. Moderate thickening at the distal esophagus. Severe hepatic st eatosis with central areas of focal fatty sparing. The liver is enlarged. The gallbladder is mildly d istended. No gallbladder wall thickening. The main portal vein appears patent. The splenic vein is al so patent. Subcentimeter retroperitoneal lymph nodes do not meet CT criteria for pathologic involveme nt. The spleen and right adrenal gland are unremarkable. There are few punctate bilateral renal calcu li. No hydronephrosis. Small amount of scattered ascites. A few colonic diverticula. No evidence for acute diverticulitis. Mild thickening within the proximal colon which may be reactive. No evidence fo r bowel obstruction. Normal bladder. There is moderate edema/fluid surrounding the edematous pancreas . This consistent with acute pancreatitis. Mild thickening at the duodenum is likely reactive. IMPRESSION: 1. Moderate edema/fluid surrounding the edematous pancreas. This likely represents an acute pancreati tis. Recommend correlation with pancreatic enzymes. 2. Mildly distended gallbladder which is likely secondary to the acute pancreatitis. 3. Hepatomegaly demonstrating fatty change. 4. Small amount of scattered ascites. 5. Moderate thickening of the distal esophagus. 6. Mild thickening at the ascending colon. ACT 112: Negative or not required by law. Electronically signed by: Viktor Pa M.D. 10/14/2020 7:32 AM
[2020-10-14] MEDS: ENOXAPARIN INJ 40 MG/0.4 ML SYR SQ SCH (07:35)
[2020-10-14] MEDS: NEPHROCAPS PO SCH (07:37)
[2020-10-14] MEDS: MULTIVITAMIN TAB PO SCH (07:38)
[2020-10-14] MEDS: FOLIC ACID 1 MG TAB PO SCH (07:38)
[2020-10-14] MEDS ORDERED: SODIUM CHLORIDE 0.9% 1000ML 1,000 ML IV SCH (07:48)
[2020-10-14] MEDS: FAMOTIDINE 20 MG in SYRINGE 3 ML IV SCH ×2 (07:50→21:49)
--- NOTE | 2020-10-14 07:54 | Hospitalist Progress Note ---
Date of Service October 14, 2020 Assessment & Plan (1) Alcohol withdrawal: PT has acute alcohol withdrawal, on Ativan and Gabapentin, needs some prn metoprolol , thiamine and consider adding clondine (2) Pancreatitis: Alcoholic pancreatitis/diffuse fatty liver/jaundice/ascites- CT abdomen pelvis 10/13/20 IMPRESSION: 1. Moderate edema/fluid surrounding the edematous pancreas. This likely represents an acute pancreatitis. Recommend correlation with pancreatic enzymes. 2. Mildly distended gallbladder which is likely secondary to the acute pancreatitis. 3. Hepatomegaly demonstrating fatty change. 4. Small amount of scattered ascites. 5. Moderate thickening of the distal esophagus. 6. Mild thickening at the ascending colon. no obstruction noted MELD score 17 Follow serial CBC with differential, chemistry profile and lipase levels Zofran 4 mg IV every 6 hours as needed Famotidine 20 mg IV every 12 hours pending hepatitis profile for potential additive injury (3) Fatty liver: See above (4) Jaundice: See above (5) Alcohol abuse: Discussed importance of cessation AWSS protocol with gabapentin p.o. and as needed Ativan IV Thiamine 200 mg iv tid Folic acid 1 mg p.o. daily Nephrocaps 1 p.o. daily (6) Ascites: Paracentesis not indicated. (7) Hypokalemia: Hyponatremia/hypokalemia/hypomagnesemia- change to LR Receiving IV magnesium replacement in the ED Repeat laboratories in a.m. (8) Hypomagnesemia: See above Admission and Anticipated Discharge Date Admission Date: October 14, 2020 Subjective pt is in active alcohol withdrawal and had likely alcoholic pancreatitis and hepatitis, with elevation of lipase and total bili, he is with visual halluci nations and is tachycardic he is conversant but goes off into tangental discussions regarding his hallucination content Review of Systems Review of Systems: Moderate distress tremulous and actively hallucinating no headache, blurry or double vision no speech or swallowing issues no chest pain, pressure or palpitations no shortness of breath, cough or wheezes Central abdominal pain mild nausea no vomiting no dysuria, hematuria or frequency no focal joint pain or swelling no back pain, CVA tenderness or radicular pain no bruising, bleeding or rashes no focal signs of weakness or numbness Patient does have hallucinations while in the room Physical Exam Physical Exam: The patient appeared as a chronic alcoholic weight he is obviously jaundiced. Vital signs as documented. hr 150 Head exam is normocephalic atraumatic no scleral icterus Neck is without JVD, thyromegaly, or carotid bruits. Lungs are diminshed to bases Cardiac exam, Rhythm is tachycardic Abdominal exam reveals normal bowel sounds, soft minor tenderness Extremities are trace edematous and jaundiced Neurologic exam is alert and orientedx2, no focal loss of strength or sensation, tremor no axterixis Skin is with jaundiced Results & Data Results & Data ([facility]) Vital Signs (Past 12 Hours) Vital Signs Temp Pulse Pulse Pulse Resp BP BP 10/14/20 07:11 147 H 10/14/20 07:09 158 H 149/88 H 10/14/20 07:03 97.5 F L 161 H 18 148/104 H 10/14/20 06:31 98.2 F 116 H 20 135/96 10/14/20 04:39 97.7 F 118 H 20 128/92 10/14/20 01:41 98.1 F 105 H 24 149/96 H 10/14/20 01:26 107 H 15 132/89 10/14/20 01:00 107 H 15 132/89 10/14/20 00:30 99 H 19 140/101 H 10/13/20 23:30 104 H 13 138/91 10/13/20 23:00 104 H 12 135/95 10/13/20 22:40 118 H 22 10/13/20 22:30 105 H 16 136/101 H 10/13/20 22:20 99 H 19 10/13/20 22:01 95 H 13 10/13/20 22:00 95 H 15 142/91 H 10/13/20 21:42 10/13/20 21:40 98 H 13 10/13/20 21:34 101 H 18 10/13/20 21:30 103 H 20 139/95 Pulse Ox 10/14/20 07:11 10/14/20 07:09 10/14/20 07:03 93 10/14/20 06:31 95 10/14/20 04:39 94 10/14/20 01:41 97 10/14/20 01:26 97 10/14/20 01:00 97 10/14/20 00:30 96 10/13/20 23:30 97 10/13/20 23:00 96 10/13/20 22:40 96 10/13/20 22:30 97 10/13/20 22:20 98 10/13/20 22:01 96 10/13/20 22:00 97 10/13/20 21:42 99 10/13/20 21:40 96 10/13/20 21:34 98 10/13/20 21:30 97 PG Care Time/CCT Total # of Minutes Spent Total Time Spent with Patient: Total time spent is greater than 50% in coordination of care (as documented) at patient's floor/unit and/or counseling patient: Coding Level of Care Code 77441 Subseq Hosp Care Lvl 3 Diagnoses Alcohol withdrawal F10.239 Pancreatitis K85.20 Acute pancreatitis complication: unspecified Chronicity: acute Pancreatitis type: alcohol induced Fatty liver K76.0 Jaundice R17 Alcohol abuse F10.10 Ascites R18.8 Hypokalemia E87.6 Hypomagnesemia E83.42 (1) Pancreatitis Acute pancreatitis complication: unspecified Chronicity: acute Pancreatitis type: alcohol induced Qualified Code(s): K85.20 - Alcohol induced acute pancreatitis without necrosis or infection
[2020-10-14] MEDS ORDERED: GABAPENTIN 600 MG TAB PO ONE (08:00)
[2020-10-14] MEDS ORDERED: GABAPENTIN 400 MG CAP PO SCH ×2 (08:00→22:00)
[2020-10-14] MEDS ORDERED: THIAMINE HCL 200 MG in SODIUM CHLORIDE 0.9% 50 ML IV SCH ×2 (08:00→09:00)
[2020-10-14 08:34] LABS: Hepatitis B Surf Ag Rflx Conf Neg (Neg)
[2020-10-14] MEDS ORDERED: THIAMINE HCL 100 MG TAB PO SCH (09:00)
[2020-10-14 09:07] LABS: Hepatitis C IgG 13Yrs+Old_Rflx Neg (Neg)
[2020-10-14] MEDS: LORazepam 3 MG/6 ML VIAL IV PRN ×2 (10:37→23:17)
--- NOTE | 2020-10-14 10:51 | Electrocardiogram Report ---
Test Reason : Blood Pressure : / mmHG Vent. Rate : 102 BPM Atrial Rate : 102 BPM P-R Int : 170 ms QRS Dur : 092 ms QT Int : 368 ms P-R-T Axes : 070 017 054 degrees QTc Int : 479 ms Poor data quality, interpretation may be adversely affected Sinus tachycardia Otherwise normal ECG No previous ECGs available Confirmed by Curtis Payan ([id number]) on 10/14/2020 10:50:51 AM Referred By: REFERRED SELF Confirmed By:Curtis Payan
--- NOTE | 2020-10-14 11:44 | Electrocardiogram Report ---
Test Reason : Blood Pressure : / mmHG Vent. Rate : 128 BPM Atrial Rate : 128 BPM P-R Int : 140 ms QRS Dur : 084 ms QT Int : 320 ms P-R-T Axes : 067 021 041 degrees QTc Int : 467 ms Sinus tachycardia Otherwise normal ECG When compared with ECG of 13-OCT-2020 21:16, (unconfirmed) No significant change was found Confirmed by Curtis Payan ([id number]) on 10/14/2020 11:43:46 AM Referred By: REFERRED SELF Confirmed By:Curtis Payan
[2020-10-14] MEDS ORDERED: NSS + 20MEQ KCL 20 MEQ/1,000 ML BAG IV SCH (14:00)
[2020-10-14] MEDS ORDERED: cloNIDine HCL 0.1 MG TAB PO PRN (14:02)
[2020-10-14] MEDS ORDERED: THIAMINE HCL 200 MG in SODIUM CHLORIDE 0.9% 50 ML IV STA (14:11)
[2020-10-14] MEDS: METOPROLOL TARTRATE 1 MG/ML VIAL IV PRN (14:22)
[2020-10-14] MEDS: GABAPENTIN 600 MG TAB PO SCH ×2 (15:17→21:48)
[2020-10-14] MEDS: LACTATED RINGER'S 1,000 ML IV SCH ×2 (15:25→22:51)
[2020-10-14] MEDS: THIAMINE HCL 200 MG in SODIUM CHLORIDE 0.9% 50 ML IV SCH (21:49)
[2020-10-15] MEDS: LORazepam 2 MG/4 ML VIAL IV PRN ×3 (03:36→15:25)
[2020-10-15] MEDS: GABAPENTIN 600 MG TAB PO SCH ×3 (04:27→20:59)
[2020-10-15] MEDS ORDERED: HALOPERIDOL LACTATE 5 MG/ML 1 ML VIAL IV STA (05:07)
[2020-10-15] MEDS: LORazepam 3 MG/6 ML VIAL IV PRN ×2 (05:11→10:41)
[2020-10-15] MEDS: LACTATED RINGER'S 1,000 ML IV SCH ×3 (06:14→22:20)
[2020-10-15 06:51] LABS: Hepatitis A Antibody IgM NON-REACTIVE (NON-REACTIVE); Hepatitis B Core Antibody IgM NON-REACTIVE (NON-REACTIVE)
[2020-10-15 07:51] LABS: Hematocrit (blood only) 31.2 % (42-52); Hemoglobin 10.9 g/dL (14.0-18.0); Mean Corpuscular Hemoglobin 36.6 pg (25-34); Mean Corpuscular Hgb Conc 34.9 g/dL (32-36); Mean Corpuscular Volume 104.7 fL (80-100); Mean Platelet Volume 11.9 fL (7.4-10.4); Nucleated RBC # (auto) 0.06 K/uL (0-0); Nucleated RBC % (auto) 0.6 %; Platelet Count 95 K/uL (130-400); RDW Coefficient of Variation 14.8 % (11.5-14.5); RDW Standard Deviation 57.2 fL (36.4-46.3); Red Blood Count 2.98 M/uL (4.7-6.1); White Blood Count 9.22 K/uL (4.8-10.8)
[2020-10-15 07:53] LABS: Albumin Globulin Ratio 0.7 (0.9-2); Albumin Level 2.3 gm/dl (3.4-5.0); BUN Creatinine Ratio 19.5 (10-20); Bilirubin,Total 9.8 mg/dl (0.2-1); Calcium 8.3 mg/dl (8.5-10.1); Est GFR (African American) 145.8; Est GFR (Non-African American) 125.8; Globulin 3.2 gm/dl (2.5-4.0); Magnesium 1.8 mg/dl (1.8-2.4); Phosphorus 1.7 mg/dl (2.5-4.9); Potassium 3.4 mmol/L (3.5-5.1); Total Protein 5.5 gm/dl (6.4-8.2)
[2020-10-15 07:59] LABS: Basophils # (auto) 0.02 K/uL (0-0.2); Basophils % (auto) 0.2 %; Eosinophils # (auto) 0.04 K/uL (0-0.5); Eosinophils % (auto) 0.4 %; Immature Granulocytes # (auto) 0.03 K/uL (0.00-0.02); Immature Granulocytes % (auto) 0.3 %; Lymphocytes % (auto) 14.1 %; Monocytes # (auto) 1.19 K/uL (0.11-0.59); Monocytes % (auto) 12.9 %; Neutrophils # (auto) 6.64 K/uL (1.4-6.5); Neutrophils % (auto) 72.1 %
[2020-10-15] MEDS ORDERED: POTASSIUM PHOS 3 MMOL/1 ML INFUSION IV STA (08:10)
--- NOTE | 2020-10-15 08:15 | Hospitalist Progress Note ---
Date of Service October 15, 2020 Assessment & Plan (1) Alcohol withdrawal: PT has acute alcohol withdrawal, on Ativan and Gabapentin, needs some prn metoprolol , thiamine and one does of po clondine pts Discriminant function is low thus making pt NOT be a candidate for glucocorticoids and having alcoholic hepatitis ruled out at this time (2) Pancreatitis: Alcoholic pancreatitis/diffuse fatty liver/jaundice/ascites- CT abdomen pelvis 10/13/20 IMPRESSION: 1. Moderate edema/fluid surrounding the edematous pancreas. This likely represents an acute pancreatitis. Recommend correlation with pancreatic enzymes. 2. Mildly distended gallbladder which is likely secondary to the acute pancreatitis. 3. Hepatomegaly demonstrating fatty change. 4. Small amount of scattered ascites. 5. Moderate thickening of the distal esophagus. 6. Mild thickening at the ascending colon. no obstruction noted MELD score 17 DF 13.9 Follow serial CBC with differential, chemistry profile and lipase levels Zofran 4 mg IV every 6 hours as needed Famotidine 20 mg IV every 12 hours pending hepatitis profile for potential additive injury (3) Fatty liver: See above (4) Jaundice: See above (5) Alcohol abuse: Discussed importance of cessation AWSS protocol with gabapentin p.o. and as needed Ativan IV Thiamine 200 mg iv tid Folic acid 1 mg p.o. daily Nephrocaps 1 p.o. daily (6) Ascites: Paracentesis not indicated. (7) Hypokalemia: Hyponatremia/hypokalemia/hypomagnesemia- changed to LR Receiving IV magnesium replacement in the ED Repeat laboratories in a.m. (8) Hypomagnesemia: See above Admission and Anticipated Discharge Date Admission Date: October 14, 2020 Subjective pt remains in active alcohol withdrawal and had likely alcoholic pancreatitis and hepatitis, with elevation of lipase and total bili, he continues with visual hallucinations and is tachycardic he is intermittently sedated and agitated Review of Systems Review of Systems: Moderate distress less tremulous and actively hallucinating no headache, blurry or double vision no speech or swallowing issues no chest pain, pressure or palpitations no shortness of breath, cough or wheezes Central abdominal pain mild nausea no vomiting no dysuria, hematuria or frequency no focal joint pain or swelling no back pain, CVA tenderness or radicular pain no bruising, bleeding or rashes no focal signs of weakness or numbness Patient does have hallucinations while in the room Physical Exam Physical Exam: The patient appeared as a chronic alcoholic weight he is obviously jaundiced. Vital signs as documented. hr 120's Head exam is normocephalic atraumatic no scleral icterus Neck is without JVD, thyromegaly, or carotid bruits. Lungs are diminshed to bases Cardiac exam, Rhythm is tachycardic Abdominal exam reveals normal bowel sounds, soft minor tenderness Extremities are trace edematous and jaundiced Neurologic exam is alert and orientedx2, no focal loss of strength or sensation, tremor no axterixis Skin is with jaundiced Results & Data Results & Data ([facility]) Vital Signs (Past 12 Hours) Vital Signs Temp Pulse Pulse Resp BP Pulse Ox 10/15/20 08:03 97.5 F L 110 H 18 109/73 96 10/15/20 06:10 114 H 20 117/77 94 10/15/20 03:22 97.9 F 122 H 20 125/84 97 10/15/20 03:13 126 H 10/14/20 22:53 98.6 F 140 H 22 135/94 93 10/14/20 21:45 98.2 F 120 H 22 117/84 95 PG Care Time/CCT Total # of Minutes Spent Total Time Spent with Patient: Total time spent is greater than 50% in coordination of care (as documented) at patient's floor/unit and/or counseling patient: Coding Level of Care Code 52296 Subseq Hosp Care Lvl 3 Diagnoses Alcohol withdrawal F10.239 Pancreatitis K85.20 Acute pancreatitis complication: unspecified Chronicity: acute Pancreatitis type: alcohol induced Fatty liver K76.0 Jaundice R17 Alcohol abuse F10.10 Ascites R18.8 Hypokalemia E87.6 Hypomagnesemia E83.42 (1) Pancreatitis Acute pancreatitis complication: unspecified Chronicity: acute Pancreatitis type: alcohol induced Qualified Code(s): K85.20 - Alcohol induced acute pancreatitis without necrosis or infection
[2020-10-15] MEDS ORDERED: MAGNESIUM SULFATE / D5W 1 GM/100 ML BAG IV ONE (08:45)
[2020-10-15] MEDS ORDERED: POTASSIUM PHOSPHATE 21 MMOL in SODIUM CHLORIDE 0.9% 500 ML IV ONE (09:00)
[2020-10-15] MEDS: ENOXAPARIN INJ 40 MG/0.4 ML SYR SQ SCH ×2 (09:17→09:27)
[2020-10-15] MEDS: FAMOTIDINE 20 MG in SYRINGE 3 ML IV SCH ×2 (09:18→21:01)
[2020-10-15] MEDS: THIAMINE HCL 200 MG in SODIUM CHLORIDE 0.9% 50 ML IV SCH ×3 (09:18→21:00)
[2020-10-15] MEDS: MULTIVITAMIN TAB PO SCH (09:21)
[2020-10-15] MEDS: FOLIC ACID 1 MG TAB PO SCH (09:21)
[2020-10-15] MEDS: NEPHROCAPS PO SCH (09:21)
[2020-10-15] MEDS ORDERED: HALOPERIDOL LACTATE 5 MG/ML 1 ML VIAL IV PRN (11:52)
[2020-10-15] MEDS: chlordiazePOXIDE HCl 25 MG CAP PO SCH ×2 (13:03→21:09)
[2020-10-15] MEDS: LORazepam 1 MG/2 ML VIAL IV PRN (20:58)
[2020-10-16] MEDS ORDERED: GABAPENTIN 400 MG CAP PO SCH (02:00)
[2020-10-16] MEDS: LORazepam 2 MG/4 ML VIAL IV PRN (04:22)
[2020-10-16] MEDS: chlordiazePOXIDE HCl 25 MG CAP PO SCH ×3 (04:22→21:31)
[2020-10-16] MEDS: LACTATED RINGER'S 1,000 ML IV SCH ×3 (05:45→21:35)
[2020-10-16 06:26] LABS: Basophils # (auto) 0.04 K/uL (0-0.2); Basophils % (auto) 0.3 %; Eosinophils # (auto) 0.04 K/uL (0-0.5); Eosinophils % (auto) 0.3 %; Hematocrit (blood only) 35.6 % (42-52); Hemoglobin 12.3 g/dL (14.0-18.0); Immature Granulocytes # (auto) 0.06 K/uL (0.00-0.02); Immature Granulocytes % (auto) 0.5 %; Lymphocytes # (auto) 1.41 K/uL (1.2-3.4); Lymphocytes % (auto) 11.7 %; Mean Corpuscular Hemoglobin 36.3 pg (25-34); Mean Corpuscular Hgb Conc 34.6 g/dL (32-36); Mean Platelet Volume 10.9 fL (7.4-10.4); Monocytes # (auto) 1.52 K/uL (0.11-0.59); Monocytes % (auto) 12.6 %; Neutrophils # (auto) 9.01 K/uL (1.4-6.5); Neutrophils % (auto) 74.6 %; Nucleated RBC # (auto) 0.13 K/uL (0-0); Platelet Count 115 K/uL (130-400); RDW Coefficient of Variation 15.3 % (11.5-14.5); RDW Standard Deviation 58.5 fL (36.4-46.3); Red Blood Count 3.39 M/uL (4.7-6.1); White Blood Count 12.08 K/uL (4.8-10.8)
[2020-10-16 07:05] LABS: Alanine Aminotransferase 53 U/L (12-78); Albumin Globulin Ratio 0.6 (0.9-2); Albumin Level 2.3 gm/dl (3.4-5.0); Alkaline Phosphatase 350 U/L (45-117); Aspartate Aminotransferase 201 U/L (15-37); BUN Creatinine Ratio 22.7 (10-20); Blood Urea Nitrogen 12 mg/dl (7-18); Calcium 8.1 mg/dl (8.5-10.1); Carbon Dioxide 23 mmol/L (21-32); Chloride 104 mmol/L (98-107); Creatinine Clr Calc Pharmacy 186.8 ml/min; Est GFR (African American) > 150.0; Est GFR (Non-African American) 132.4; Globulin 3.6 gm/dl (2.5-4.0); Glucose 66 mg/dl (70-99); Lipase 559 U/L (73-393); Magnesium 2.3 mg/dl (1.8-2.4); Phosphorus 2.1 mg/dl (2.5-4.9); Sodium 139 mmol/L (136-145); Total Protein 5.9 gm/dl (6.4-8.2)
[2020-10-16] MEDS ORDERED: OPTIRAY 320 125ml IV ONE (08:41)
--- NOTE | 2020-10-16 08:54 | CT Scan Report ---
CT ANGIOGRAM OF THE CHEST CLINICAL HISTORY: Shortness of breath. Possible pulmonary embolism COMPARISON STUDY: X-ray study dated 321 TECHNIQUE: Following the IV administration of 119 mL of Optiray-320, CT angiogram of the thorax was p erformed from the thoracic inlet to the lung bases utilizing the pulmonary embolus protocol. Images a re reviewed in the axial, sagittal, and coronal planes. IV contrast was administered without complica tion. MIP imaging was performed. A dose lowering technique was utilized adhering to the principles o f ALARA. CT DOSE: 276.27 mGy.cm FINDINGS: There is severe hepatic steatosis. There is upper abdominal perisplenic ascites. No pathologically enlarged axillary mediastinal or hilar lymph nodes were visualized. There was no evidence of thoracic aortic dilatation. There were no pulmonary artery filling defects to indicate acute pulmonary embolism. There are small bilateral pleural effusions. There are bilateral dependent pulmonary airspace opacities, statistically atelectatic although an inf ectious/inflammatory processes could appear similar. There is left lower lobe bronchial wall thickeni ng and mucous plugging. IMPRESSION: 1. No evidence of acute pulmonary embolism 2. Left lower lobe bronchial wall thickening and mucous plugging 3. Small bilateral pleural effusions 4. Bilateral dependent airspace opacities statistically atelectatic although an infectious/inflammato ry processes could appear similar 5. Severe hepatic steatosis 6. Perisplenic ascites ACT 112: Negative or not required by law. Electronically signed by: Eb Lux M.D. 10/16/2020 8:53 AM
[2020-10-16] MEDS: ENOXAPARIN INJ 40 MG/0.4 ML SYR SQ SCH (09:00)
[2020-10-16] MEDS: FAMOTIDINE 20 MG in SYRINGE 3 ML IV SCH ×2 (09:04→21:31)
[2020-10-16] MEDS: THIAMINE HCL 200 MG in SODIUM CHLORIDE 0.9% 50 ML IV SCH ×3 (09:05→21:35)
[2020-10-16] MEDS: NEPHROCAPS PO SCH (09:08)
[2020-10-16] MEDS: FOLIC ACID 1 MG TAB PO SCH (09:08)
[2020-10-16] MEDS: GABAPENTIN 600 MG TAB PO SCH ×3 (09:08→21:28)
[2020-10-16] MEDS: MULTIVITAMIN TAB PO SCH (09:08)
[2020-10-16 11:22] LABS: Potassium 4.3 mmol/L (3.5-5.1)
[2020-10-16] MEDS: METOPROLOL TARTRATE 1 MG/ML VIAL IV PRN (12:46)
--- NOTE | 2020-10-16 19:05 | Hospitalist Progress Note ---
Date of Service October 16, 2020 Assessment & Plan (1) Alcohol withdrawal: PT has acute alcohol withdrawal, on Ativan and Gabapentin, needs some prn metoprolol , thiamine and one does of po clondine pts Discriminant function is low thus making pt NOT be a candidate for glucocorticoids and having alcoholic hepatitis ruled out at this time he is slowly improving and will try to increase librium to have less dependence on iv ativan (2) Pancreatitis: Alcoholic pancreatitis/diffuse fatty liver/jaundice/ascites- CT abdomen pelvis 10/13/20 IMPRESSION: 1. Moderate edema/fluid surrounding the edematous pancreas. This likely represents an acute pancreatitis. Recommend correlation with pancreatic enzymes. 2. Mildly distended gallbladder which is likely secondary to the acute pancreatitis. 3. Hepatomegaly demonstrating fatty change. 4. Small amount of scattered ascites. 5. Moderate thickening of the distal esophagus. 6. Mild thickening at the ascending colon. no obstruction noted MELD score 17 DF 13.9 Follow serial CBC with differential, chemistry profile and lipase levels Zofran 4 mg IV every 6 hours as needed Famotidine 20 mg IV every 12 hours pending hepatitis profile for potential additive injury (3) Tachycardia: tachycardia persists, feeling this is from withdrawal, using prn metoprolol, CTA did not show PE (4) Fatty liver: See above (5) Jaundice: See above (6) Alcohol abuse: Discussed importance of cessation AWSS protocol with gabapentin p.o. and as needed Ativan IV Thiamine 200 mg iv tid Folic acid 1 mg p.o. daily Nephrocaps 1 p.o. daily (7) Ascites: Paracentesis not indicated. (8) Hypokalemia: Hyponatremia/hypokalemia/hypomagnesemia- changed to LR Receiving IV magnesium replacement in the ED Repeat laboratories in a.m. (9) Hypomagnesemia: See above Admission and Anticipated Discharge Date Admission Date: October 14, 2020 Subjective pt continues with active alcohol withdrawal and had likely alcoholic pancreatitis and hepatitis, both are improving he continues with visual hallucinations and is tachycardic he is intermittently sedated and agitated Review of Systems Review of Systems: Moderate distress less tremulous and actively hallucinating no headache, blurry or double vision no speech or swallowing issues no chest pain, pressure or palpitations no shortness of breath, cough or wheezes Central abdominal pain mild nausea no vomiting no dysuria, hematuria or frequency no focal joint pain or swelling no back pain, CVA tenderness or radicular pain no bruising, bleeding or rashes no focal signs of weakness or numbness Patient does have hallucinations while in the room Physical Exam Physical Exam: The patient appeared as a chronic alcoholic weight he is obviously jaundiced. Vital signs as documented. hr 120's Head exam is normocephalic atraumatic no scleral icterus Neck is without JVD, thyromegaly, or carotid bruits. Lungs are diminshed to bases Cardiac exam, Rhythm is tachycardic Abdominal exam reveals normal bowel sounds, soft minor tenderness Extremities are trace edematous and jaundiced Neurologic exam is alert and orientedx2, no focal loss of strength or sensation, tremor no axterixis Skin is with jaundiced Results & Data Results & Data ([facility]) Vital Signs (Past 12 Hours) Vital Signs Temp Pulse Pulse Resp BP BP Pulse Ox 10/16/20 15:09 116 H 10/16/20 12:46 127 H 138/89 10/16/20 12:11 98.4 F 117 H 18 138/89 93 10/16/20 07:50 98.6 F 65 18 119/82 95 10/16/20 07:20 117 H PG Care Time/CCT Total # of Minutes Spent Total Time Spent with Patient: Total time spent is greater than 50% in coordin ation of care (as documented) at patient's floor/unit and/or counseling patient: Coding Level of Care Code 90533 Subseq Hosp Care Lvl 3 Diagnoses Alcohol withdrawal F10.239 Pancreatitis K85.20 Acute pancreatitis complication: unspecified Chronicity: acute Pancreatitis type: alcohol induced Tachycardia R00.0 Fatty liver K76.0 Jaundice R17 Alcohol abuse F10.10 Ascites R18.8 Hypokalemia E87.6 Hypomagnesemia E83.42 (1) Pancreatitis Acute pancreatitis complication: unspecified Chronicity: acute Pancreatitis type: alcohol induced Qualified Code(s): K85.20 - Alcohol induced acute pancreatitis without necrosis or infection
[2020-10-17] MEDS: LORazepam 2 MG/4 ML VIAL IV PRN ×2 (00:51→09:00)
[2020-10-17 04:24] LABS: Hematocrit (blood only) 33.8 % (42-52); Hemoglobin 11.7 g/dL (14.0-18.0); Mean Corpuscular Hemoglobin 36.4 pg (25-34); Mean Corpuscular Volume 105.3 fL (80-100); Mean Platelet Volume 10.4 fL (7.4-10.4); Nucleated RBC # (auto) 0.13 K/uL (0-0); Nucleated RBC % (auto) 1.1 %; Platelet Count 149 K/uL (130-400); RDW Coefficient of Variation 15.7 % (11.5-14.5); RDW Standard Deviation 59.7 fL (36.4-46.3); Red Blood Count 3.21 M/uL (4.7-6.1); White Blood Count 11.48 K/uL (4.8-10.8)
[2020-10-17] MEDS: chlordiazePOXIDE HCl 25 MG CAP PO SCH ×2 (04:24→13:05)
[2020-10-17] MEDS ORDERED: FUROSEMIDE 40 MG in SYRINGE 0 ML IV ONE (04:30)
[2020-10-17 04:40] LABS: Basophils # (auto) 0.04 K/uL (0-0.2); Basophils % (auto) 0.3 %; Eosinophils # (auto) 0.06 K/uL (0-0.5); Eosinophils % (auto) 0.5 %; Immature Granulocytes # (auto) 0.06 K/uL (0.00-0.02); Immature Granulocytes % (auto) 0.5 %; Lymphocytes # (auto) 1.68 K/uL (1.2-3.4); Lymphocytes % (auto) 14.6 %; Mean Corpuscular Hgb Conc 34.6 g/dL (32-36); Monocytes # (auto) 2.02 K/uL (0.11-0.59); Monocytes % (auto) 17.6 %; Neutrophils # (auto) 7.62 K/uL (1.4-6.5); Neutrophils % (auto) 66.5 %
--- NOTE | 2020-10-17 05:41 | Communication Note ---
Date of Service: October 17, 2020 Called to bedside by nursing to assess patient for new oxygen requirement after being found at 85% on room air, started on 4L NC to get back to 92%. At bedside, all lung queen sound diffusely rhonchorous and crackling with "bubbling" sounds. Some upper airway wheeze also audible. CXR ordered, showing pulmonary edema bilaterally compared to admission. Feet bilaterally swollen with 2+ pitting edema. Stat CBC, Lactate ordered. 40 IV lasix given. monitoring UOP via condom cath. 850 ml diuresed in the past 16 hrs. Likely flash pulmonary edema secondary to transfusion fluid and running lactated ringers. Nurse also noted sugars have been borderline low at 66-78 range. Patient has been too encephalopathic to eat. May consider addition of D5 or D10 to fluids vs TPN if patient is running out of liver glucose stores due to severe alcoholism and cirrhosis.
[2020-10-17] MEDS: LACTATED RINGER'S 1,000 ML IV SCH ×3 (05:58→20:26)
[2020-10-17] MEDS: METOPROLOL TARTRATE 1 MG/ML VIAL IV PRN ×2 (06:42→16:44)
--- NOTE | 2020-10-17 07:36 | XRay Report ---
XR chest 1V portable HISTORY: hypoxia COMPARISON: Chest CTA 10/16/2020. FINDINGS: There are low lung volumes. No pneumothorax. Small bilateral pleural effusions and bibasila r densities persist. The heart remains normal in size. No evidence for pulmonary edema. IMPRESSION: No change in the small bilateral pleural effusions and bibasilar densities. ACT 112: Negative or not required by law. Electronically signed by: Viktor Pa M.D. 10/17/2020 7:34 AM
[2020-10-17] MEDS ORDERED: PIPERACILL/TAZOBAC CONSULT ACTIVE PRN (07:41)
[2020-10-17] MEDS ORDERED: PIPERACILLIN/TAZOBACTAM 4.5 GM in DEXTROSE 5% 100 ML IV ONE (08:00)
[2020-10-17] MEDS: FAMOTIDINE 20 MG in SYRINGE 3 ML IV SCH ×2 (08:04→22:27)
[2020-10-17] MEDS: MULTIVITAMIN TAB PO SCH (08:05)
[2020-10-17] MEDS: THIAMINE HCL 200 MG in SODIUM CHLORIDE 0.9% 50 ML IV SCH ×3 (08:05→22:18)
[2020-10-17] MEDS: ENOXAPARIN INJ 40 MG/0.4 ML SYR SQ SCH (08:05)
[2020-10-17] MEDS: FOLIC ACID 1 MG TAB PO SCH (08:05)
[2020-10-17] MEDS: NEPHROCAPS PO SCH (08:05)
[2020-10-17] MEDS ORDERED: cefTRIAXone SODIUM 2,000 MG in DEXTROSE 5% 50 ML IV SCH (09:00)
--- NOTE | 2020-10-17 11:09 | XCELERA ---
[id number]
[2020-10-17] MEDS ORDERED: PHENobarbital sodium 130 MG/ML VIAL IM STA (12:29)
[2020-10-17] MEDS ORDERED: GABAPENTIN 400 MG CAP PO SCH (14:00)
[2020-10-17] MEDS: PIPERACILLIN/TAZOBACTAM 3.375 GM in DEXTROSE 5% 100 ML IV SCH ×2 (15:17→22:25)
[2020-10-17] MEDS ORDERED: PHENobarbital sodium 130 MG/ML VIAL IM ONE ×2 (15:30→18:30)
--- NOTE | 2020-10-17 18:30 | XRay Report ---
SINGLE VIEW CHEST CLINICAL HISTORY: Respiratory failure. FINDINGS: An AP, portable, upright chest radiograph is compared to study performed earlier the same d ay 10/17/2020 and correlated with chest CT dated 10/16/2020. The examination is degraded by portable te chnique and patient rotation. The heart is enlarged. There is prominence of the pulmonary vasculature . There are layering pleural effusions with bibasilar consolidation. No pneumothorax is seen. The bon y thorax is grossly intact. IMPRESSION: 1. Cardiomegaly with prominence of the pulmonary vasculature. Correlate clinically for evidence of co ngestive failure. 2. Layering pleural effusions with bibasilar consolidation. These are unchanged to modestly increased from today's earlier examination. ACT 112: Negative or not required by law. Electronically signed by: Jose Figueroa M.D. 10/17/2020 6:29 PM
[2020-10-17 18:43] LABS: Base Excess ABG 2.7 mEq/L (-9-1.8); HCO3 ABG 26 mmol/L (19-24); Oxygen Saturation ABG 90.5 % (90-95); PCO2 ABG 35 mmHg (35-46); PO2 ABG 57 mmHg (80-95); pH ABG 7.49 (7.35-7.45)
[2020-10-17] MEDS ORDERED: ICU PROTOCOL FOR HYPERGLYCEMIA PRN (18:52)
--- NOTE | 2020-10-17 18:52 | Hospitalist Progress Note ---
Date of Service October 17, 2020 Assessment & Plan (1) Acute respiratory failure: She has acute respiratory failure is combination of likely CO2 narcosis, benzodiazepine use for alcohol withdrawal, and initiation of some phenobarbital to try to help reduce his alcohol withdrawal. Because of his declining end- tidal CO2 and increasing respiratory rate patient was transferred to intensive care unit for noninvasive positive pressure ventilation. An ABG is pending. A chest x-ray was performed at the time of his transfer without pneumothorax or significant parenchymal changes in his lungs. He does have some basilar changes and likely basilar effusions. Patient remains on treatment for likely healthcare associated pneumonia of our aspiration pneumonia with Zosyn therapy he is anticoagulated with Lovenox prophylactic dosing. Because of persistent tachycardia the patient has CT angiogram performed on 10/16 this was without pulmonary embolism but showed left lower lobe bronchial wall thickening a mucous plugging and that is when antibiotics were initiated (2) Alcohol withdrawal: PT has acute alcohol withdrawal, was initiated on on Ativan and Gabapentin, needs some prn metoprolol , thiamine high-dose pts Discriminant function was low on admission thus making pt NOT be a candidate for glucocorticoids and having alcoholic hepatitis ruled out at this time (3) Pancreatitis: Alcoholic pancreatitis/diffuse fatty liver/jaundice/ascites- CT abdomen pelvis 10/13/20 IMPRESSION: 1. Moderate edema/fluid surrounding the edematous pancreas. This likely represents an acute pancreatitis. Recommend correlation with pancreatic enzymes. 2. Mildly distended gallbladder which is likely secondary to the acute pancreatitis. 3. Hepatomegaly demonstrating fatty change. 4. Small amount of scattered ascites. 5. Moderate thickening of the distal esophagus. 6. Mild thickening at the ascending colon. no obstruction noted lipase is proving (4) Tachycardia: tachycardia persists, feeling this is from withdrawal, using prn metoprolol, CTA did not show PE Echocardiogram showed ejection fraction slightly depressed at 45-50 consider this alcohol-related (5) Fatty liver: See above (6) Jaundice: bilirubin initially went down then went up (7) Alcohol abuse: Discussed importance of cessation AWSS protocol with gabapentin p.o. and as needed Ativan IV Thiamine 200 mg iv tid Folic acid 1 mg p.o. daily Nephrocaps 1 p.o. daily (8) Ascites: Paracentesis not indicated. (9) Hypokalemia: Hyponatremia/hypokalemia/hypomagnesemia- changed to LR Receiving IV magnesium replacement in the ED Repeat laboratories in a.m. (10) Hypomagnesemia: See above Admission and Anticipated Discharge Date Admission Date: October 14, 2020 Subjective this pt has declined throughout the day, initially was agitated and did receive 2 mg iv ativan, he once again was sedated heavily and could not take po or po meds, I discussed trying some phenobarb to hopefully reduce ativan use, unfortunately he did have decline in respiratory status, and was moved to icu for bipap and close monitoring Review of Systems Review of Systems: Unobtainable due to cognitive status Moderate distress respiratory depression Physical Exam Physical Exam: The patient appeared as a chronic alcoholic weight he is obviously jaundiced. Vital signs as documented. hr 120's Head exam is normocephalic atraumatic does have scleral icterus Neck is without JVD, thyromegaly, or carotid bruits. Lungs are diminshed to bases L> R Cardiac exam, Rhythm is tachycardic Abdominal exam reveals normal bowel sounds, soft minor tenderness Extremities are trace edematous and jaundiced Neurologic exam is obtunded Skin is with jaundice Results & Data Results & Data ([facility]) Vital Signs (Past 12 Hours) Vital Signs Temp Pulse Pulse Resp BP BP Pulse Ox 10/17/20 16:44 133 H 115/78 10/17/20 15:18 97.2 F L 117 H 18 115/87 94 10/17/20 11:00 97.3 F L 116 H 18 122/79 94 10/17/20 07:09 98.6 F 110 H 19 107/81 98 PG Care Time/CCT Total # of Minutes Spent Total Time Spent with Patient: Total time spent is greater than 50% in coordination of care (as documented) at patient's floor/unit and/or counseling patient: Coding Level of Care Code 25818 Subseq Hosp Care Lvl 3 Diagnoses Acute respiratory failure J96.00 Alcohol withdrawal F10.239 Pancreatitis K85.20 Acute pancreatitis complication: unspecified Chronicity: acute Pancreatitis type: alcohol induced Tachycardia R00.0 Fatty liver K76.0 Jaundice R17 Alcohol abuse F10.10 Ascites R18.8 Hypokalemia E87.6 Hypomagnesemia E83.42 (1) Pancreatitis Acute pancreatitis complication: unspecified Chronicity: acute Pancreatitis type: alcohol induced Qualified Code(s): K85.20 - Alcohol induced acute pancreatitis without necrosis or infection
[2020-10-17 19:01] LABS: Allen Test Pos (Pos)
[2020-10-17] MEDS ORDERED: RAPID SEQUENCE INDUCTION BAG ONE (19:25)
[2020-10-17] MEDS ORDERED: PROPOFOL IV EMULSION 10 MG/ML 100 ML VIAL IV ONE (19:27)
--- NOTE | 2020-10-17 19:41 | Procedure Note ---
Procedure Note Date of Service October 17, 2020 Note INTUBATION PROCEDURE NOTE: Provider: BELGICA Paulino Attending: Dr. Cordell Smith A time-out was completed verifying correct patient, procedure, site, positioning. Patient was evaluated and required intubation for acute hypoxic respiratory failure with significant respiratory distress and AMS. Sedative agent used: Propofol Paralysis agent used: Succinylcholine Emergent consent was implied given patients rapidly declining clinical status and need for airway protection. The patient was prepared in the appropriate fashion. Sedation was achieved utilizing propofol and succinylcholine, per Dr. Ruth administration. The patient was easily ventilated using [id number] to achieve adequate oxygenation. A 7.5 Martiniquais endotracheal tube was placed utilizing gluidoscope to 24 cm at the lip. The stylette was removed and balloon was inflated with 10mL of air. Appropriate Colorimetric change was appreciated. Bilateral breath sounds were heard without air sounds in the abdomen. Dr. Ruth was present for the entire procedure. Post Intubation Chest X-ray confirms placement without pneumothorax. Patient tolerated the procedure well and there were no immediate complications. Coding CPT Codes Resuscitation - Resuscitation: 53049 Endotracheal Intubation, emergency ([id number]) [facility] [place]odes ([place]arges) Resuscitation Resuscitation: 10928 Endotracheal Intubation, emergency
[2020-10-17] MEDS ORDERED: STAT IV Infusion **Titration per Protocol STA (19:44)
[2020-10-17] MEDS ORDERED: MIDAZOLAM BOLUS FROM BAG IV PRN (19:44)
[2020-10-17] MEDS ORDERED: MIDAZOLAM HCL 125 MG/250 ML BAG IV SCH (19:45)
[2020-10-17] MEDS ORDERED: fentaNYL DRIP 1,250 MCG/250 ML BAG IV SCH (19:45)
--- NOTE | 2020-10-17 19:47 | Critical Care Consultation ---
Date of Consultation October 17, 2020 Assessment & Plan (1) Acute respiratory failure: Reason Critically Ill: 40-year-old male currently hospitalized and undergoing treatment for pancreatitis, alcohol withdrawal presents to the ICU as a transfer due to acute hypoxic respiratory failure, now requiring intubation. Neuro - Metabolic encephalopathy: Likely multifactorial as patient is currently undergoing alcohol withdrawal and has also received Ativan, gabapentin, and phenobarbital throughout the day. Ammonia mildly elevated at 50 and likely some component of hepatic encephalopathy. Patient was hard to arouse and suspect he may have aspirated, airway now secured following intubation. -BUN and CO2 within normal limits -EtOH 200 on admission 10/13 -Currently sedated with Versed, fentanyl drips -Continue thiamine and folic acid -Starting oral lactulose via OG tube Cardiac - CHFTTE demonstrated mild to moderate reduced LVEF 40 to 45% with global hypokinesis. Mild to moderate mitral regurg and mild tricuspid regurg. 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 Holding on further diuresis for now TachycardiaEKG demonstrated normal sinus tachycardia -most likely secondary to withdrawal/fever -Continue MTP as needed -Continuous monitor on telemetry Respiratory - Acute hypoxic respiratory failurechest x-ray is consistent with bibasilar consolidations which may be consistent with aspiration. Highly suspicious for aspiration pneumonitis/PNA given patient's obtunded status. -Ultimately failed BiPAP and required emergent intubation. Vent settings: 16/450/8/60 percent. -Cannot rule out component of heart failure as patient has EF 40 to 45% as described above. However, no significant changes on chest x-ray that would indicate worsening pulmonary congestion and lungs clear to auscultation. Will hold on diuresis for the time being now the patient has secured airway. We will follow up chest x-ray in a.m. -CTA of the chest from yesterday is negative for PE and on heparin -Continue Zosyn -Continuous monitoring on pulse ox -Follow-up ABG in a.m. -Wean vent as tolerated GI - Acute pancreatitis/hepatic steatosis/jaundice/ascitesinitial CT abdomen on 10/13 demonstrated moderate edematous pancreatitis, mildly distended gallbladder, hepatomegaly demonstrating fatty change, and small amount of scattered ascites. -Hepatitis panel negative -Lipase and LFTs initially trended down, however in the past 24 hours lipase and bilirubin now trending up. Meld score increased to 19 -We will repeat CT abdomen with contrast. May consider MRCP if inconclusive -Consult to GI -Continue IV fluid resuscitation with caution of congestive heart failure -Continue famotidine IV -No indication for paracentesis at this time -Continue trending LFTs, bili, lipase, INR RENAL/LYTES - Creatinine and BUN within normal limits. Repleting potassium and magnesium. Calcium and phosphorus within normal limits -We will continue to monitor frequent BMPs and replete electrolytes as indicated - Foleystrict I's and O's ENDO - No history diabetes or thyroid disease Currently euglycemic HEME - H&H stable, monitor routine CBCs Thrombocytopeniaimproving, monitor ID - Mild leukocytosis and patient now febrile. Procalcitonin slightly elevated. -Chest x-ray with bibasilar consolidations and given clinical presentation, high suspicion for aspiration pneumonitis/pneumonia -Repeat CT abdomen pending -Blood cultures pending -Nasal MRSA negative -COVID-19 negative on admission -Continue Zosyn for now LINES/IV ACCESS - Peripheral IVs, OG tube, ET tube DVT PROPHYLAXIS - SCDs, heparin I have personally spent 65 minutes of critical care time in the direct management of this patient. This is a life/limb threatening event. This includes time spent evaluating patient, direct bedside care, chart review, placing orders, interpretation of diagnostic studies, discussion with consultants, patie nt, and family members, as well as other required patient management activities. This time is exclusive of all separately billable procedures, and teaching time and separate from and in addition to any other critical care service time. Thank you for allowing us to participate in the care of this patient. Please refer to my attending physician's documentation for any further recommendations. (2) Tachycardia: (3) Alcohol withdrawal: (4) Ascites: (5) Alcohol abuse: (6) Fatty liver: (7) Pancreatitis: (8) Jaundice: (9) Hypomagnesemia: (10) Hypokalemia: Supervising Physician Co-Signing Physician Notes seen and examined. agree with AP as noted by JOHANA. See my PN from today for additional deatils. History of Present Illness Attending Physician: Jose Lan MD History of Present Illness Mr. Lance is a 40-year-old male with PMH of alcohol abuse who presents to the emergency department on 10/13 with generalized abdominal pain. A CT of the abdomen revealed diffuse fatty liver, distention of gallbladder, mild ascites, and extensive fluid stranding around the pancreas. He was admitted to the hospital and was undergoing treatment for acute pancreatitis. EtOH was 202 on arrival to the emergency department, and patient began to to experience withdrawal-like symptoms and was being treated with Ativan/gabapentin with ALMAZ S scale. He was having increased agitation this morning and phenobarb was added to assist with DTs. Was notified this afternoon the patient had become obtunded and hypoxic and was now requiring BiPAP. He was transferred to the ICU for further management. On arrival to the ICU the patient appeared to be in significant respiratory distress and was very tachypneic with labored breathing and use of accessory muscles. He was minimally responsive to stimulation. Decision was made to emergently intubate and anesthesia came to the ICU to assist. He was intubated on first attempt without complication. Post intubation chest x-ray demonstrated bibasilar consolidations and I have suspicion for aspiration pneumonitis/pneumonia. Also, patient's lipase and bilirubin levels initially trended down but are now in an upward trend over the past 24 hours. Plan to repeat labs and CT abdomen. Patient remain in ICU for further management at this time. Allergies Allergy/AdvReac Type Severity Reaction Status Date / Time No Known Allergies Allergy Unknown Verified 10/13/20 22:02 Home Medications Medication Instructions Recorded Confirmed Type ibuprofen 200 mg PO Q6H PRN 10/13/20 10/13/20 History multivitamin [Multiple Vitamin] 1 tab PO DAILY 10/13/20 10/13/20 History Patient History Medical History (Updated 10/17/20 @ 19:04 by Jose Lan MD) Erythema migrans (Lyme disease) No pertinent family history Surgical History (Updated 10/14/20 @ 00:18 by Baltazar Rucker) No pertinent past surgical history Social History (Updated 10/14/20 @ 00:19 by Baltazar Rucker) Smoking Status: Current every day smoker Second Hand Exposure: No; Hx Alcohol Use: Yes Alcohol type: hard liquor Alcohol Intake Frequency Comment: Patient drinks a quarter bottle of rum every day Hx Substance Use: Yes Last Used Substance: Days (ago) Preferred Language: German Communication Ability: Impaired Funeral Service Practitioner/Embalmer Required: No Beliefs That Will Affect Care: None Current Living Situation: Family Feels Safe at Home: Yes Assistive Devices: None Review of Systems Review of Systems: Unobtainable due to cognitive status and Unobtainable due to endotracheal tube Physical Exam Constitutional: + mechanically ventilated Sedated Eyes: Jaundiced sclera, PERRLA ENMT: external ear and nose normal, oropharynx normal Neck: trachea midline, no thyromegaly Respiratory: Lungs clear to auscultation bilaterally, symmetrical chest wall movement. No crackles or wheezes auscultated. Of note, prior to intubation patient was displaying tachypnea, and labored breathing which has since ceased. Cardiovascular: Sinus tachycardia on monitor. S1-S2 auscultated. No murmur. Capillary refill normal. Bilateral +1 pedal edema. Gastrointestinal (Abdomen): Abdomen moderately distended, semifirm with mild ascites. Bowel sounds auscultated all 4 quadrants. Skin: No rashes, warm. Jaundiced Neurologic: Prior to intubation patient was obtunded but able to follow commands with stimulation. No facial palsy and symmetrical strength and movement bilaterally. PERRLA. Cough gag corneals intact. Psychiatric: GARETT due to sedation Genitourinary: Indwelling Hoover catheter Results & Data Results & Data ([facility]) Vital Signs (Past 12 Hours) Vital Signs Temp Pulse Pulse Resp BP BP Pulse Ox 10/17/20 16:44 133 H 115/78 10/17/20 15:18 36.2 C L 117 H 18 115/87 94 10/17/20 11:00 36.3 C L 116 H 18 122/79 94 Coding Level of Care Code Critical Care 1st 30-74 mins Diagnoses Acute respiratory failure J96.00 Tachycardia R00.0 Alcohol withdrawal F10.239 Ascites R18.8 Alcohol abuse F10.10 Fatty liver K76.0 Pancreatitis K85.20 Acute pancreatitis complication: unspecified Chronicity: acute Pancreatitis type: alcohol induced Jaundice R17 Hypomagnesemia E83.42 Hypokalemia E87.6 (1) Pancreatitis Acute pancreatitis complication: unspecified Chronicity: acute Pancreatitis type: alcohol induced Qualified Code(s): K85.20 - Alcohol induced acute pancreatitis without necrosis or infection
[2020-10-17 19:48] LABS: INR 1.3 (0.9-1.1); Prothrombin Time 13.2 Seconds (9.0-12.0)
[2020-10-17] MEDS ORDERED: GABAPENTIN 600 MG TAB PO SCH (20:00)
--- NOTE | 2020-10-17 20:04 | XRay Report ---
SINGLE VIEW CHEST CLINICAL HISTORY: Respiratory failure. Intubation. FINDINGS: 2 AP, portable, upright chest radiographs are compared to studies performed earlier the nohemi 10/17/2020 and correlated with chest CT dated 10/16/2020. The examination is degraded by portable technique and patient rotation. An endotracheal tube has been placed. The tip projects 4 cm above th e katy. An enteric tube has been placed. The tip projects below the diaphragm over the distal stoma ch. The heart is enlarged. There is prominence of the pulmonary vasculature. There are layering pleur al effusions with bibasilar consolidation. No pneumothorax is seen. The bony thorax is grossly intact . IMPRESSION: 1. Endotracheal and enteric tubes have been placed as above. 2. Cardiomegaly with prominence of the pulmonary vasculature. Correlate clinically for evidence of co ngestive failure. 3. Layering pleural effusions with bibasilar consolidation are unchanged. ACT 112: Negative or not required by law. Electronically signed by: Jose Figueroa M.D. 10/17/2020 8:02 PM
[2020-10-17] MEDS ORDERED: LACTULOSE SYRUP 30 GM/45 ML UDP PO STA (20:07)
[2020-10-17 20:11] LABS: Basophils # (auto) 0.04 K/uL (0-0.2); Basophils % (auto) 0.3 %; Eosinophils # (auto) 0.01 K/uL (0-0.5); Eosinophils % (auto) 0.1 %; Hematocrit (blood only) 37.4 % (42-52); Hemoglobin 12.7 g/dL (14.0-18.0); Immature Granulocytes # (auto) 0.06 K/uL (0.00-0.02); Immature Granulocytes % (auto) 0.5 %; Lymphocytes # (auto) 0.91 K/uL (1.2-3.4); Lymphocytes % (auto) 7.6 %; Mean Corpuscular Hemoglobin 36.7 pg (25-34); Mean Corpuscular Volume 108.1 fL (80-100); Mean Platelet Volume 10.8 fL (7.4-10.4); Monocytes # (auto) 2.39 K/uL (0.11-0.59); Monocytes % (auto) 19.9 %; Neutrophils # (auto) 8.57 K/uL (1.4-6.5); Neutrophils % (auto) 71.6 %; Nucleated RBC # (auto) 0.11 K/uL (0-0); Nucleated RBC % (auto) 0.9 %; Platelet Count 139 K/uL (130-400); RDW Coefficient of Variation 16.3 % (11.5-14.5); RDW Standard Deviation 62.1 fL (36.4-46.3); Red Blood Count 3.46 M/uL (4.7-6.1); White Blood Count 11.98 K/uL (4.8-10.8)
[2020-10-17 20:14] LABS: Albumin Globulin Ratio 0.6 (0.9-2); Albumin Level 2.2 gm/dl (3.4-5.0); BUN Creatinine Ratio 17.8 (10-20); Bilirubin,Total 13.2 mg/dl (0.2-1); Calcium 8.5 mg/dl (8.5-10.1); Est GFR (African American) 143.8; Est GFR (Non-African American) 124.1; Globulin 3.6 gm/dl (2.5-4.0); Total Protein 5.9 gm/dl (6.4-8.2)
[2020-10-17 20:33] LABS: Magnesium 1.9 mg/dl (1.8-2.4)
[2020-10-17 20:36] LABS: Bilirubin Direct 11.1 mg/dl (0-0.2)
[2020-10-17 20:37] LABS: iSTAT Allen Test Pass; iSTAT Art Bld Gas pCO2 Correct 38 mmHg (35-46); iSTAT Art Bld Gas pH Corrected 7.473 (7.35-7.45); iSTAT Arterial Blood Gas HCO3 27 meg/L (19-24); iSTAT Arterial Blood Gas pCO2 34 mmHg (35-46); iSTAT Arterial Blood Gas pH 7.51 (7.35-7.45); iSTAT Arterial Blood Gas pO2 61 mmHg (80-95); iSTAT Arterial Blood Gas pO2 C 71; iSTAT Carbon Dioxide 28 mmol/L (24-31); iSTAT FiO2 80 %; iSTAT Hematocrit 39 % (42-52); iSTAT Hemoglobin 13.3 g/dl (14.0-18.0); iSTAT Potassium 3.2 mmol/L (3.3-5.0); iSTAT Site R Radial; iSTAT Sodium 139 mmol/L (135-144)
[2020-10-17 20:38] LABS: Phosphorus 3.5 mg/dl (2.5-4.9); Potassium 3.3 mmol/L (3.5-5.1)
[2020-10-17] MEDS ORDERED: SODIUM CHLORIDE 0.9% 1000ML 500 ML IV ONE (20:57)
[2020-10-17] MEDS ORDERED: MAGNESIUM SULFATE / D5W 1 GM/100 ML BAG IV ONE (21:00)
[2020-10-17] MEDS ORDERED: POTASSIUM CHLORIDE 20 MEQ/15 ML UDC PO ONE (21:00)
[2020-10-17] MEDS: LACTULOSE SYRUP 30 GM/45 ML UDP PO SCH (21:13)
[2020-10-17 21:24] LABS: NT Pro B Type Natriuretic Pept 131 pg/ml (0-450)
[2020-10-17] MEDS ORDERED: OPTIRAY 320 100ml IV ONE (22:02)
[2020-10-17] MEDS: ALBUMIN 25% 12.5 GM/50 ML VIAL IV SCH (22:19)
--- NOTE | 2020-10-17 22:19 | CT Scan Report ---
CT SCAN OF THE ABDOMEN AND PELVIS WITH IV CONTRAST CLINICAL HISTORY: Elevated hepatic transaminases. Worsening lipase. COMPARISON STUDY: Abdominal CT dated 10/14/2020. TECHNIQUE: Following the IV administration of 93 cc of Optiray 320, CT scan of the abdomen and pelvi s is performed from the lung bases to the proximal femora. Images are reviewed in the axial, sagittal , and coronal planes. IV contrast was administered without complication. A dose lowering technique wa s utilized adhering to the principles of ALARA. The examination is degraded by motion artifact, as we ll as by streak artifact from the arms which could not be related above the abdomen. CT DOSE: 640.38 mGy.cm FINDINGS: Lung bases: The heart is normal in size and without pericardial effusion. There are small pleural eff usions with dense dependent consolidation as well as mild groundglass consolidation. Liver: The contrast-enhanced liver is enlarged, measuring 20.8 cm in length. The liver demonstrates d iffusely diminished attenuation consistent with severe hepatic steatosis. There are foci of geographi c fatty sparing. There is no intrahepatic biliary ductal dilatation. The hepatic veins and portal vei ns are patent. Gallbladder: Hyperdense material within the gallbladder lumen likely represents vicariously excreted contrast. Gallstones are not excluded. Spleen: Normal in size and attenuation. Pancreas: The pancreas appears mildly edematous. There is peripancreatic stranding and trace fluid. T his appears improved as compared to 10/14/2020. The gland enhances homogeneously. The duct is normal in caliber, and the splenic vein is patent. No organized peripancreatic fluid collection is identified. Adrenal glands: Unremarkable. Kidneys: The contrast enhanced kidneys are normal in size and without hydronephrosis. There is hetero geneous renal enhancement seen bilaterally. There are small nonobstructing renal calculi which measur e up to 4 mm. Abdominal vasculature: The abdominal aorta is normal in course and caliber. Stomach and bowel: An enteric tube terminates in the mid to distal stomach. There is no bowel obstruc tion. There is wall thickening and edema of the right colon. Mild wall thickening and edema of the du odenum is likely related to adjacent pancreatitis. The appendix is not visualized. Peritoneum: There is a small volume of abdominopelvic ascites. This has modestly increased as compare d to 10/14/2020. No intraperitoneal free air is seen. Lymphadenopathy: None. Pelvic viscera: The bladder is decompressed around a Hoover catheter and cannot be evaluated. Foci of intraluminal gas are likely related to instrumentation. The prostate and seminal vesicles are normal as imaged. Skeletal structures: No lytic or blastic lesions are seen. Soft tissues: There is body wall edema. IMPRESSION: 1. Streak and motion compromised examination. 2. There are small pleural effusions with dense bibasilar consolidation as well as patchy groundglass change. This is new from previous and suggests pneumonia/aspiration pneumonitis. Clinical correlatio n will be required and radiographic follow-up to resolution is recommended. 3. Again seen are findings of acute pancreatitis. This appears improved as compared to 10/14/2020. The gland enhances homogeneously, with no organized peripancreatic fluid collection identified. 4. Hepatomegaly and severe steatosis. 5. There is a small volume of abdominopelvic ascites. This has modestly increased as compared to prev ious. 6. Wall thickening and edema is again noted in the right colon. This could represent an infectious/in flammatory colitis or possibly portal colopathy. Clinical correlation will required. 7. There is heterogeneous enhancement of both kidneys. Correlate with clinical findings, serum creati nine levels, and urinalysis. 8. Bilateral nephrolithiasis. 9. Wall thickening and edema of the duodenum is likely related to adjacent pancreatitis. 10. Hyperdense material within the gallbladder likely represents vicariously excreted contrast. Galls tones are not excluded. 11. Body wall edema. 12. Additional findings as above. ACT 112: Negative or not required by law. Electronically signed by: Jose Figueroa M.D. 10/17/2020 10:18 PM
[2020-10-17] MEDS: HEPARIN SOD 5,000 UNIT/0.5 ML VIAL SQ SCH (22:24)
[2020-10-17 23:32] LABS: Creatine Kinase 109 U/L (39-308)
[2020-10-18] MEDS: LACTATED RINGER'S 1,000 ML IV SCH ×2 (04:09→13:43)
[2020-10-18] MEDS: ALBUMIN 25% 12.5 GM/50 ML VIAL IV SCH (04:10)
[2020-10-18] MEDS: PIPERACILLIN/TAZOBACTAM 3.375 GM in DEXTROSE 5% 100 ML IV SCH ×3 (04:56→21:41)
[2020-10-18] MEDS: HEPARIN SOD 5,000 UNIT/0.5 ML VIAL SQ SCH ×3 (04:58→20:58)
[2020-10-18 05:03] LABS: iSTAT Allen Test Pass; iSTAT Art Bld Gas pCO2 Correct 41 mmHg (35-46); iSTAT Arterial Blood Gas HCO3 29 meg/L (19-24); iSTAT Arterial Blood Gas pCO2 42 mmHg (35-46); iSTAT Arterial Blood Gas pH 7.45 (7.35-7.45); iSTAT Arterial Blood Gas pO2 75 mmHg (80-95); iSTAT Arterial Blood Gas pO2 C 72; iSTAT Carbon Dioxide 31 mmol/L (24-31); iSTAT FiO2 40 %; iSTAT Hematocrit 34 % (42-52); iSTAT Hemoglobin 11.6 g/dl (14.0-18.0); iSTAT Potassium 3.4 mmol/L (3.3-5.0); iSTAT Site R Radial; iSTAT Sodium 141 mmol/L (135-144)
[2020-10-18 05:20] LABS: Hematocrit (blood only) 33.3 % (42-52); Hemoglobin 11.1 g/dL (14.0-18.0); Mean Corpuscular Hemoglobin 36.4 pg (25-34); Mean Corpuscular Hgb Conc 33.3 g/dL (32-36); Mean Corpuscular Volume 109.2 fL (80-100); Mean Platelet Volume 10.3 fL (7.4-10.4); Nucleated RBC # (auto) 0.03 K/uL (0-0); Nucleated RBC % (auto) 0.3 %; Platelet Count 122 K/uL (130-400); RDW Coefficient of Variation 17.1 % (11.5-14.5); RDW Standard Deviation 64.2 fL (36.4-46.3); Red Blood Count 3.05 M/uL (4.7-6.1)
[2020-10-18 06:07] LABS: Alanine Aminotransferase 64 U/L (12-78); Albumin Level 2.2 gm/dl (3.4-5.0); Alkaline Phosphatase 278 U/L (45-117); Aspartate Aminotransferase 159 U/L (15-37); Bilirubin,Total 11.5 mg/dl (0.2-1); Blood Urea Nitrogen 11 mg/dl (7-18); Calcium 7.6 mg/dl (8.5-10.1); Carbon Dioxide 28 mmol/L (21-32); Chloride 105 mmol/L (98-107); Creatinine Clr Calc Pharmacy 189.5 ml/min; Est GFR (African American) > 150.0; Est GFR (Non-African American) 132.4; Glucose 138 mg/dl (70-99); Lipase 426 U/L (73-393); Magnesium 2.3 mg/dl (1.8-2.4); Potassium 3.6 mmol/L (3.5-5.1); Sodium 143 mmol/L (136-145); Total Protein 5.5 gm/dl (6.4-8.2)
[2020-10-18] MEDS ORDERED: POTASSIUM CHLORIDE 20 MEQ/15 ML UDC PO STA (06:09)
[2020-10-18 06:13] LABS: Bilirubin Direct 9.4 mg/dl (0-0.2)
--- NOTE | 2020-10-18 08:09 | XRay Report ---
XR chest 1V portable HISTORY: 40 years-old Male resp failure acute respiratory failure COMPARISON: Chest radiograph 10/17/2020 TECHNIQUE: Portable AP view of the chest FINDINGS: Endotracheal tube overlies the midline terminating 6.1 cm superior to the katy. Enteric tube course s below the diaphragm outside the [id number]. Small pleural effusions with persistent bibasilar co nsolidation. No pneumothorax. Stable size of the cardiac silhouette. Bones appear grossly intact. IMPRESSION: 1. Lines and tubes as above. 2. Unchanged small pleural effusions with bibasilar consolidation. ACT 112: Negative or not required by law. The above report was generated using voice recognition software. It may contain grammatical, syntax o r spelling errors. Electronically signed by: Tony Crawley M.D. 10/18/2020 8:07 AM
--- NOTE | 2020-10-18 08:32 | CT Scan Report ---
CT head/brain wo con CLINICAL HISTORY: 40 years-old Male with AMS. Acutely altered mental status TECHNIQUE: Multiple axial CT images of the head were obtained without contrast. A dose lowering tech nique was utilized adhering to the principles of ALARA. CT DOSE: 614.27 mGy.cm COMPARISON: None. FINDINGS: No acute intracranial hemorrhage, midline shift, intracranial mass, hydrocephalus, territorial ischem ia or abnormal extra-axial collection. The calvarium is intact. Layering secretions are noted within the nasopharynx. The paranasal sinuses, mastoid air cells, and middle ear cavities are clear. IMPRESSION: No acute intracranial abnormality. ACT 112: Negative or not required by law. The above report was generated using voice recognition software. It may contain grammatical, syntax o r spelling errors. Electronically signed by: Tony Crawley M.D. 10/18/2020 8:30 AM
[2020-10-18] MEDS ORDERED: STAT IV Infusion **Titration per Protocol STA (09:36)
--- NOTE | 2020-10-18 09:57 | Critical Care Progress Note ---
Date of Service October 18, 2020 Assessment & Plan (1) Acute respiratory failure: Reason Critically Ill: 40-year-old male currently hospitalized and undergoing treatment for pancreatitis, alcohol withdrawal presents to the ICU as a transfer due to acute hypoxic respiratory failure, now requiring intubation. 24 Hour Events: Recommendations: Neuro -suspect related to medications as well as alcohol withdrawal and hepatic encephalopathy. Continue lactulose. Discontinue fentanyl and Versed. Continue high-dose thiamine for alcohol withdrawal. Will initiate scheduled Ativan and placed on Precedex. May consider low-dose antipsychotics if sedation continues to be problematic. CT of the head unremarkable and no indication for repeat OVEN HEATER imaging. Will trend ammonia level. Cardiac - CHFTTE demonstrated mild to moderate reduced LVEF 40 to 45% with global hypokinesis. Mild to moderate mitral regurg and mild tricuspid regurg. Will decrease IV fluids to prevent iatrogenic fluid overload and pulmonary edema. Respiratory - Acute hypoxic respiratory failurechest x-ray is consistent with bibasilar consolidations which may be consistent with aspiration. Check sputum culture to guide antimicrobial therapy. Procalcitonin was elevated. Most recent blood gas showed a pH 7.45, PCO2 42, and PO2 of 75 with a bicarb of 29: Current vent settings assist-control/16/450/8/0 0.4. Degree of hypoxemia out of proportion to parenchymal opacities identified on chest x-ray. Possibility of hepatopulmonary syndrome is raised. We will see if we can get him liberated from mechanical ventilator as his mental status improves. His tachypnea may have been related to have hepatic failure. GI - Acute alcoholic hepatitis with pancreatitis. Numbers are improving today. Discussed with GI. Will defer any imaging at this point time. Discriminant score is only 17 so no benefit for steroids at this point time. Meld score is elevated and continued alcohol abuse will likely result in progressive liver dysfunction and . The patient absolutely needs to be abstinent from alcohol. Continue lactulose and add rifaximin. RENAL/LYTES - Renal function and urine output appropriate. Continue to trend electrolytes and replete as needed. - Foleystrict I's and O's ENDO - No history diabetes or thyroid disease Currently euglycemic HEME - H&H stable, monitor routine CBCs Thrombocytopeniaimproving, monitor ID - Day #1 Zosyn for potential aspiration pneumonia. Check respiratory culture and trend white blood cell count, fever curve, and procalcitonin. LINES/IV ACCESS - Peripheral IVs, OG tube, ET tube DVT PROPHYLAXIS - SCDs, heparin (2) Alcohol withdrawal: Admission and Anticipated Discharge Date Admission Date: October 14, 2020 Subjective Patient is intubated and sedated and unable to provide any history. Review of Systems Review of Systems: Unobtainable due to endotracheal tube Physical Exam Constitutional: + mechanically ventilated Sedated Eyes: Jaundiced sclera, PERRLA ENMT: external ear and nose normal, oropharynx normal Neck: trachea midline, no thyromegaly Respiratory: Lungs clear to auscultation bilaterally, symmetrical chest wall movement. No crackles or wheezes auscultated. Of note, prior to intubation patient was displaying tachypnea, and labored breathing which has since ceased. Cardiovascular: Sinus tachycardia on monitor. S1-S2 auscultated. No murmur. Capillary refill normal. Bilateral +1 pedal edema. Gastrointestinal (Abdomen): Abdomen moderately distended, semifirm with mild ascites. Bowel sounds auscultated all 4 quadrants. Skin: No rashes, warm. Jaundiced Neurologic: Prior to intubation patient was obtunded but able to follow commands with stimulation. No facial palsy and symmetrical strength and move ment bilaterally. PERRLA. Cough gag corneals intact. Psychiatric: GARETT due to sedation Genitourinary: Indwelling Hoover catheter Results & Data Results & Data ([facility]) Vital Signs (Past 12 Hours) Vital Signs Temp Pulse Resp BP Pulse Ox 10/18/20 04:40 95 H 16 97 10/18/20 01:14 114 H 17 96 10/18/20 00:00 128 H 10/17/20 23:40 38.3 C H 123 H 97 10/17/20 23:20 38.4 C H 125 H 96 10/17/20 23:14 38.4 C H 124 H 121/82 96 10/17/20 23:00 38.5 C H 128 H 94 10/17/20 22:44 38.6 C H 128 H 111/74 92 10/17/20 22:40 38.6 C H 128 H 23 93 10/17/20 22:20 38.7 C H 122 H 91 10/17/20 22:14 123 H 123/87 92 10/17/20 21:44 39.0 C H 139 H 108/79 96 Laboratory Results 10/18/20 05:11 10/18/20 05:11 AST 159 which is decreased ALT 64 which is decreased Alk phos 278 which is decreased Total bili 11.5 decreasing Direct bili 9.4 decreasing Calcium 7.6 Albumin 2.2 Lipase 426 which is decreasing Procalcitonin 1.81 Blood cultures from 10/17 show no growth to date Diagnostic Findings Chest x-ray from today was independently reviewed. The endotracheal tube is approximately 6 cm above the katy but within the window of the head to the cl avicles. Hazy basilar opacities are noted. Cannot rule out small bilateral pleural effusions. CT of the head from last night showed no acute intracranial abnormality CT of the abdomen and pelvis from yesterday showed small bilateral pleural effusions with basilar consolidation. Acute pancreatitis findings without overt necrosis and improved compared to film a few days ago. No phlegmon or abscess identified. Small volume of ascites slightly increased. Thickening of the right colon as well as duodenum. Most recent blood gas showed a pH 7.45, PCO2 42, and PO2 of 75 with a bicarb of 29: Current vent settings assist-control/16/450/8/0 0.4 Coding Level of Care Code Critical Care 1st 30-74 mins Diagnoses Acute respiratory failure J96.00 Alcohol withdrawal F10.239 Time Spent (min) 45
[2020-10-18] MEDS: LACTULOSE SYRUP 30 GM/45 ML UDP PO SCH ×3 (10:18→20:54)
[2020-10-18] MEDS: DEXMEDETOMIDINE HCL 200 MCG in SODIUM CHLORIDE 0.9% 48 ML IV SCH ×2 (10:18→16:56)
[2020-10-18] MEDS: FAMOTIDINE 20 MG in SYRINGE 3 ML IV SCH ×2 (10:18→20:55)
[2020-10-18] MEDS: THIAMINE HCL 200 MG in SODIUM CHLORIDE 0.9% 50 ML IV SCH ×3 (10:18→20:56)
[2020-10-18] MEDS: LORazepam 1 MG TAB PO SCH ×3 (10:21→20:56)
--- NOTE | 2020-10-18 15:14 | Hospitalist Progress Note ---
Date of Service October 18, 2020 Assessment & Plan (1) Acute respiratory failure: acute respiratory failure was combination of likely CO2 narcosis, benzodiazepine use for alcohol withdrawal, and initiation of some phenobarbital to try to help reduce his alcohol withdrawal. he remains sedated and ventilated He does have some basilar changes and likely basilar effusions. Patient remains on treatment for likely healthcare associated pneumonia of our aspiration pneumonia with Zosyn therapy he is anticoagulated with Lovenox prophylactic dosing. Because of persistent tachycardia the patient has CT angiogram performed on 10/16 this was without pulmonary embolism but showed left lower lobe bronchial wall thickening a mucous plugging and that is when antibiotics were initiated (2) Alcohol withdrawal: PT has acute alcohol withdrawal, was initiated on scheduled Ativan needs some prn metoprolol , thiamine high-dose pts Discriminant function was low on admission thus making pt NOT be a candidate for glucocorticoids and having alcoholic hepatitis ruled out at this time (3) Pancreatitis: Alcoholic pancreatitis/diffuse fatty liver/jaundice/ascites- CT abdomen pelvis 10/13/20 IMPRESSION: 1. Moderate edema/fluid surrounding the edematous pancreas. This likely represents an acute pancreatitis. Recommend correlation with pancreatic enzymes. 2. Mildly distended gallbladder which is likely secondary to the acute pancreatitis. 3. Hepatomegaly demonstrating fatty change. 4. Small amount of scattered ascites. 5. Moderate thickening of the distal esophagus. 6. Mild thickening at the ascending colon. no obstruction noted lipase is proving (4) Tachycardia: tachycardia from withdrawal, using prn metoprolol, CTA did not show PE, Ehco with EF 45% probably from alcohol, improved with better sedation Echocardiogram showed ejection fraction slightly depressed at 45-50 consider this alcohol-related (5) Fatty liver: See above (6) Jaundice: bilirubin secondary to alcoholic hepatitis (7) Alcohol abuse: Thiamine 200 mg iv tid Folic acid 1 mg p.o. daily Nephrocaps 1 p.o. daily (8) Ascites: Paracentesis not indicated, no significant fluid (9) Hypokalemia: Hyponatremia/hypokalemia/hypomagnesemia- changed to LR Receiving IV magnesium replacement in the ED Repeat laboratories in a.m. (10) Hypomagnesemia: See above (11) Alcoholic encephalopathy: did have mildly eleveated ammonia on lacutulose Admission and Anticipated Discharge Date Admission Date: October 14, 2020 Subjective Patient is intubated and sedated and unable to provide any history. Review of Systems Review of Systems: Moderate distress respiratory depression Physical Exam Physical Exam: The patient appeared as a chronic alcoholic weight he is obviously jaundiced. Vital signs as documented. hr 120's Head exam is normocephalic atraumatic does have scleral icterus Neck is without JVD, thyromegaly, or carotid bruits. Lungs are diminshed to bases L> R Cardiac exam, Rhythm is tachycardic Abdominal exam reveals normal bowel sounds, soft minor tenderness Extremities are trace edematous and jaundiced Neurologic exam is obtunded Skin is with jaundice Results & Data Results & Data ([facility]) Vital Signs (Past 12 Hours) Vital Signs Temp Pulse Resp BP Pulse Ox 10/18/20 14:14 97.7 F 98 H 93/61 L 96 10/18/20 14:00 97.5 F L 99 H 96 10/18/20 13:44 97.3 F L 99 H 96/64 L 96 10/18/20 13:30 97.0 F L 98 H 96 10/18/20 13:14 97.0 F L 99 H 100/65 98 10/18/20 13:00 96.8 F L 96 H 97 10/18/20 12:44 96.6 F L 104 H 102/69 98 10/18/20 12:30 96.6 F L 102 H 97 10/18/20 12:14 96.6 F L 100 H 104/69 98 10/18/20 12:00 96.4 F L 99 H 97 10/18/20 11:44 96.4 F L 103 H 109/69 98 10/18/20 11:30 96.4 F L 102 H 97 10/18/20 11:15 100 H 15 96 10/18/20 11:14 96.4 F L 99 H 105/70 97 10/18/20 11:00 96.6 F L 105 H 97 10/18/20 10:44 96.6 F L 102 H 108/71 97 10/18/20 10:30 96.6 F L 98 H 97 10/18/20 10:14 96.6 F L 102 H 113/74 97 10/18/20 10:00 96.4 F L 102 H 98 10/18/20 09:44 96.4 F L 100 H 110/75 97 10/18/20 09:30 96.4 F L 101 H 98 10/18/20 09:14 96.4 F L 97 H 110/77 98 10/18/20 09:00 96.4 F L 96 H 97 10/18/20 08:44 96.4 F L 97 H 111/73 99 10/18/20 08:30 96.6 F L 94 H 99 10/18/20 08:14 96.6 F L 94 H 111/78 99 10/18/20 08:00 96.8 F L 94 H 98 10/18/20 07:44 96.8 F L 91 H 106/74 98 10/18/20 07:40 93 H 14 98 10/18/20 07:30 97.0 F L 92 H 98 10/18/20 07:14 97.2 F L 94 H 104/69 97 10/18/20 07:00 97.2 F L 95 H 97 10/18/20 06:44 97.3 F L 96 H 103/68 98 10/18/20 06:30 97.3 F L 96 H 98 10/18/20 06:14 97.3 F L 94 H 107/73 98 10/18/20 06:00 97.3 F L 98 H 98 10/18/20 05:44 97.3 F L 95 H 106/68 98 10/18/20 05:30 97.2 F L 96 H 96 10/18/20 05:14 97.2 F L 97 H 103/73 96 10/18/20 05:00 97.2 F L 95 H 95 10/18/20 04:44 97.2 F L 96 H 101/67 97 10/18/20 04:40 95 H 16 97 10/18/20 04:30 97.3 F L 98 H 97 10/18/20 04:14 97.5 F L 96 H 99/68 L 98 10/18/20 04:00 97.7 F 100 H 97 10/18/20 03:44 97.9 F 98 H 97/64 L 97 10/18/20 03:30 98.1 F 101 H 96 10/18/20 03:14 98.2 F 103 H 99/67 L 95 PG Care Time/CCT Total # of Minutes Spent Total Time Spent with Patient: Total time spent is greater than 50% in coordination of care (as documented) at patient's floor/unit and/or counseling patient: Coding Level of Care Code 27412 Subseq Hosp Care Lvl 3 Diagnoses Acute respiratory failure J96.00 Alcohol withdrawal F10.239 Pancreatitis K85.20 Acute pancreatitis complication: unspecified Chronicity: acute Pancreatitis type: alcohol induced Tachycardia R00.0 Fatty liver K76.0 Jaundice R17 Alcohol abuse F10.10 Ascites R18.8 Hypokalemia E87.6 Hypomagnesemia E83.42 Alcoholic encephalopathy G31.2; F10.20 (1) Pancreatitis Acute pancreatitis complication: unspecified Chronicity: acute Pancreatitis type: alcohol induced Qualified Code(s): K85.20 - Alcohol induced acute pancreatitis without necrosis or infection
[2020-10-19] MEDS: LORazepam 1 MG TAB PO SCH ×3 (03:49→17:57)
[2020-10-19] MEDS: DEXMEDETOMIDINE HCL 200 MCG in SODIUM CHLORIDE 0.9% 48 ML IV SCH ×4 (03:49→21:24)
[2020-10-19 04:50] LABS: Hematocrit (blood only) 33.3 % (42-52); Hemoglobin 10.9 g/dL (14.0-18.0); Mean Corpuscular Hemoglobin 36.2 pg (25-34); Mean Corpuscular Hgb Conc 32.7 g/dL (32-36); Mean Corpuscular Volume 110.6 fL (80-100); Mean Platelet Volume 10.9 fL (7.4-10.4); Nucleated RBC # (auto) 0.03 K/uL (0-0); Nucleated RBC % (auto) 0.3 %; Platelet Count 135 K/uL (130-400); RDW Coefficient of Variation 17.8 % (11.5-14.5); RDW Standard Deviation 68.2 fL (36.4-46.3); Red Blood Count 3.01 M/uL (4.7-6.1); White Blood Count 9.34 K/uL (4.8-10.8)
[2020-10-19 05:29] LABS: iSTAT Allen Test Pass; iSTAT Art Bld Gas pCO2 Correct 41 mmHg (35-46); iSTAT Art Bld Gas pH Corrected 7.474 (7.35-7.45); iSTAT Arterial Blood Gas HCO3 30 meg/L (19-24); iSTAT Arterial Blood Gas pCO2 41 mmHg (35-46); iSTAT Arterial Blood Gas pH 7.47 (7.35-7.45); iSTAT Arterial Blood Gas pO2 75 mmHg (80-95); iSTAT Arterial Blood Gas pO2 C 75; iSTAT Carbon Dioxide 31 mmol/L (24-31); iSTAT FiO2 30 %; iSTAT Hematocrit 34 % (42-52); iSTAT Hemoglobin 11.6 g/dl (14.0-18.0); iSTAT Potassium 3.4 mmol/L (3.3-5.0); iSTAT Site R Radial; iSTAT Sodium 143 mmol/L (135-144)
[2020-10-19 05:33] LABS: BUN Creatinine Ratio 28.4 (10-20); Bilirubin Direct 8.2 mg/dl (0-0.2); Bilirubin,Total 9.7 mg/dl (0.2-1); Calcium 7.5 mg/dl (8.5-10.1); Creatinine Clr Calc Pharmacy 168.1 ml/min; Est GFR (African American) 146.8; Est GFR (Non-African American) 126.6; Magnesium 2.3 mg/dl (1.8-2.4); Phosphorus 2.3 mg/dl (2.5-4.9); Potassium 3.5 mmol/L (3.5-5.1); Total Protein 5.3 gm/dl (6.4-8.2)
[2020-10-19] MEDS: PIPERACILLIN/TAZOBACTAM 3.375 GM in DEXTROSE 5% 100 ML IV SCH ×3 (05:34→21:24)
[2020-10-19] MEDS: HEPARIN SOD 5,000 UNIT/0.5 ML VIAL SQ SCH ×3 (05:35→20:20)
--- NOTE | 2020-10-19 07:05 | Hospitalist Progress Note ---
Date of Service October 19, 2020 Assessment & Plan (1) Acute respiratory failure: acute respiratory failure was combination of aspiration pneumonia, benzodiazepine use for alcohol withdrawal, and initiation of some phenobarbital to try to help reduce his alcohol withdrawal. he remains sedated and ventilated, feeling his sedation is from hepatic encephalopathy with elevated pneumonia adding xifaxan Patient remains on treatment for likely healthcare associated pneumonia of our aspiration pneumonia with Zosyn therapy he is anticoagulated with Lovenox prophylactic dosing. Because of persistent tachycardia the patient has CT angiogram performed on 10/16 this was without pulmonary embolism but showed left lower lobe bronchial wall thickening a mucous plugging and that is when antibiotics were initiated (2) Alcohol withdrawal: PT has acute alcohol withdrawal, was initiated on scheduled Ativan needs some prn metoprolol , thiamine high-dose pts Discriminant function was low on admission thus making pt NOT be a candidate for glucocorticoids and having alcoholic hepatitis ruled out at this time, his inr remains slighlty elevated but low (3) Pancreatitis: Alcoholic pancreatitis/diffuse fatty liver/jaundice/ascites- CT abdomen pelvis 10/13/20 IMPRESSION: 1. Moderate edema/fluid surrounding the edematous pancreas. This likely represents an acute pancreatitis. Recommend correlation with pancreatic enzymes. 2. Mildly distended gallbladder which is likely secondary to the acute pancreatitis. 3. Hepatomegaly demonstrating fatty change. 4. Small amount of scattered ascites. 5. Moderate thickening of the distal esophagus. 6. Mild thickening at the ascending colon. no obstruction noted lipase is proving slowly (4) Tachycardia: tachycardia from withdrawal, using prn metoprolol, CTA did not show PE, Ehco with EF 45% probably from alcohol, improved with better sedation Echocardiogram showed ejection fraction slightly depressed at 45-50 consider this alcohol-related (5) Fatty liver: See above (6) Jaundice: bilirubin secondary to alcoholic hepatitis (7) Alcohol abuse: Thiamine 200 mg iv tid Folic acid 1 mg p.o. daily Nephrocaps 1 p.o. daily (8) Ascites: Paracentesis not indicated, no significant fluid (9) Hypokalemia: replete labs as needed (10) Hypomagnesemia: See above (11) Alcoholic encephalopathy: did have mildly eleveated ammonia on lacutulose Admission and Anticipated Discharge Date Admission Date: October 14, 2020 Subjective Intubated and although sedation is stopped still altered and sedate maybe from hepatic encephalopathy, despite lactulose ammonia still up, ICU team adding xifaxan Review of Systems Review of Systems: Unobtainable due to cognitive status Physical Exam Physical Exam: The patient appeared as a chronic alcoholic, he is obviously jaundiced. Vital signs as documented. hr improved after intubation Head exam is normocephalic atraumatic does have scleral icterus Neck is without JVD, thyromegaly, or carotid bruits. Lungs are diminshed to bases rhonchi L> R Cardiac exam, Rhythm is tachycardic Abdominal exam reveals normal bowel sounds, soft minor tenderness Extremities are trace edematous and jaundiced Neurologic exam is obtunded Skin is with jaundice Results & Data Results & Data ([facility]) Vital Signs (Past 12 Hours) Vital Signs Temp Pulse Resp BP Pulse Ox Pulse Ox 10/19/20 06:00 99.0 F 89 14 96/68 L 96 10/19/20 05:30 98.6 F 82 14 89/55 L 96 10/19/20 05:00 98.4 F 81 14 89/55 L 96 10/19/20 04:30 98.4 F 80 14 96 10/19/20 04:00 98.4 F 82 15 93/58 L 94 10/19/20 03:45 80 20 93 10/19/20 03:30 98.1 F 80 14 94/55 L 96 10/19/20 03:00 97.7 F 78 14 95/58 L 96 10/19/20 01:30 97.3 F L 77 15 93/59 L 96 10/19/20 01:00 97.0 F L 75 14 89/60 L 97 10/19/20 00:30 96.6 F L 76 14 95/62 L 97 10/19/20 00:00 96.4 F L 69 14 93/59 L 97 10/18/20 23:30 96.6 F L 75 14 90/58 L 97 10/18/20 23:27 76 14 97 10/18/20 23:00 96.6 F L 74 14 92/59 L 97 10/18/20 22:30 96.6 F L 74 14 94/61 L 97 10/18/20 22:00 96.6 F L 75 14 96/63 L 97 10/18/20 21:30 96.4 F L 79 14 102/74 98 10/18/20 21:00 97.0 F L 80 14 98/64 L 96 10/18/20 20:41 83 15 96 10/18/20 20:30 96.8 F L 83 14 104/69 96 10/18/20 20:00 97.5 F L 82 16 101/66 96 97 10/18/20 19:30 97.7 F 84 16 96 10/18/20 19:00 97.9 F 83 16 101/65 96 PG Care Time/CCT Total # of Minutes Spent Total Time Spent with Patient: Total time spent is greater than 50% in coordination of care (as documented) at patient's floor/unit and/or counseling patient: Coding Level of Care Code 16944 Subseq Hosp Care Lvl 3 Diagnoses Acute respiratory failure J96.00 Alcohol withdrawal F10.239 Pancreatitis K85.20 Acute pancreatitis complication: unspecified Chronicity: acute Pancreatitis type: alcohol induced Tachycardia R00.0 Fatty liver K76.0 Jaundice R17 Alcohol abuse F10.10 Ascites R18.8 Hypokalemia E87.6 Hypomagnesemia E83.42 Alcoholic encephalopathy G31.2; F10.20 (1) Pancreatitis Acute pancreatitis complication: unspecified Chronicity: acute Pancreatitis type: alcohol induced Qualified Code(s): K85.20 - Alcohol induced acute pancreatitis without necrosis or infection
[2020-10-19] MEDS ORDERED: SUCCINYLCHOLINE CHLORIDE 20 MG/ML 10 ML VIAL IV ONE (07:11)
--- NOTE | 2020-10-19 08:38 | Critical Care Progress Note ---
Date of Service October 19, 2020 Assessment & Plan (1) Acute respiratory failure: Reason Critically Ill: 40-year-old male currently hospitalized and undergoing treatment for pancreatitis, alcohol withdrawal presents to the ICU as a transfer due to acute hypoxic respiratory failure, now requiring intubation. 24 Hour Events: Patient was initiated on propofol and fentanyl and Versed were discontinued. Scheduled Ativan was provided. Has been hemodynamically stable on minimal vent settings. He had 2 bowel movements overnight. He continues to demonstrate abdominal distention. Urine output decreased overnight. Serum creatinine stable. Recommendations: Neuro -suspect related to medications as well as alcohol withdrawal and hepatic encephalopathy. Continue lactulose and rifaxamin. Continue high-dose thiamine for alcohol withdrawal. Recheck ammonia level. Decrease scheduled ativan to 1 mg q8 and follow. Cardiac - CHFTTE demonstrated mild to moderate reduced LVEF 40 to 45% with global hypokinesis. Mild to moderate mitral regurg and mild tricuspid regurg. No evidence of pulm edema. Trial of diuresis and trend BP. May benefit from albumin support. Respiratory - Acute hypoxic respiratory failurechest x-ray/CT is consistent with bibasilar consolidations which may be consistent with aspiration. Resp culture pending, GPC on gram stain. Procalcitonin was elevated. Transitioned to PSV and tolerating well. If encephalopathy clears, may consider extubation on precedex. Possibility of hepatopulmonary syndrome is raised. Resp alkalosis may have been related to hepatic failure. GI - Acute alcoholic hepatitis with pancreatitis. Numbers are stable to slightly improved today. Will defer any repeat imaging at this point time. Discriminant score is only 17 so no benefit for steroids at this point time. Meld score is elevated and continued alcohol abuse will likely result in progressive liver dysfunction and . The patient absolutely needs to be abstinent from alcohol. Continue lactulose and rifaximin. RENAL/LYTES - Renal function stable but UOP decreased overnight. Continue to trend electrolytes and replete as needed. Lasix this AM and follow - Foleystrict I's and O's ENDO - No history diabetes or thyroid disease Currently euglycemic HEME - H&H stable, monitor routine CBCs Thrombocytopeniaimproving, monitor ID - Day #2 Zosyn for potential aspiration pneumonia. Check PCT in AM and await resp culture data. Discontinue abx if negative at 72 hours. LINES/IV ACCESS - Peripheral IVs, OG tube, ET tube DVT PROPHYLAXIS - SCDs, heparin Discussed with commissary helper at bedside. No family available. Pt remains critically ill with multisystem organ failure requiring life support. 38 min CC time. (2) Alcohol withdrawal: Admission and Anticipated Discharge Date Admission Date: October 14, 2020 Subjective Intubated and sedated Review of Systems Review of Systems: Unobtainable due to endotracheal tube Physical Exam Constitutional: + mechanically ventilated Sedated Eyes: Jaundiced sclera, PERRLA ENMT: external ear and nose normal, oropharynx normal Neck: trachea midline, no thyromegaly Respiratory: Lungs clear to auscultation bilaterally, symmetrical chest wall movement. No crackles or wheezes auscultated. Of note, prior to intubation patient was displaying tachypnea, and labored breathing which has since ceased. Cardiovascular: Sinus tachycardia on monitor. S1-S2 auscultated. No murmur. Capillary refill normal. Bilateral +1 pedal edema. Gastrointestinal (Abdomen): Abdomen moderately distended, semifirm. Bowel sounds auscultated all 4 quadrants. Skin: No rashes, warm. Jaundiced Neurologic: Prior to intubation patient was obtunded but able to follow commands with stimulation. No facial palsy and symmetrical strength and movement bilaterally. PERRLA. Cough gag corneals intact. Psychiatric: GARETT due to sedation Genitourinary: Indwelling Hoover catheter Results & Data Results & Data ([facility]) Vital Signs (Past 12 Hours) Vital Signs Temp Pulse Resp BP Pulse Ox Pulse Ox 10/19/20 06:00 37.2 C 89 14 96/68 L 96 10/19/20 05:30 37.0 C 82 14 89/55 L 96 10/19/20 05:00 36.9 C 81 14 89/55 L 96 10/19/20 04:30 36.9 C 80 14 96 10/19/20 04:00 36.9 C 82 15 93/58 L 94 10/19/20 03:45 80 20 93 10/19/20 03:30 36.7 C 80 14 94/55 L 96 10/19/20 03:00 36.5 C 78 14 95/58 L 96 10/19/20 01:30 36.3 C L 77 15 93/59 L 96 10/19/20 01:00 36.1 C L 75 14 89/60 L 97 10/19/20 00:30 35.9 C L 76 14 95/62 L 97 10/19/20 00:00 35.8 C L 69 14 93/59 L 97 10/18/20 23:30 35.9 C L 75 14 90/58 L 97 10/18/20 23:27 76 14 97 10/18/20 23:00 35.9 C L 74 14 92/59 L 97 10/18/20 22:30 35.9 C L 74 14 94/61 L 97 10/18/20 22:00 35.9 C L 75 14 96/63 L 97 10/18/20 21:30 35.8 C L 79 14 102/74 98 10/18/20 21:00 36.1 C L 80 14 98/64 L 96 10/18/20 20:41 83 15 96 10/18/20 20:30 36.0 C L 83 14 104/69 96 10/18/20 20:00 36.4 C L 82 16 101/66 96 97 10/18/20 19:30 36.5 C 84 16 96 Laboratory Results 10/19/20 04:21 10/19/20 04:21 Calcium 7.5 AST 207 up from 159 ALT 80 up from 64 Alk phos 238 down from 278 Total bili down to 9.7 from 11.5 Lipase 604 up from 426 Respiratory cultures pending. Few GPC's with white blood cells on Gram stain. Diagnostic Findings Chest x-ray from today was independently reviewed. Endotracheal tube and orogastric tube appear to be in good position. There is continued gaseous distention in the abdomen. Coding Level of Care Code Critical Care 1st 30-74 mins Diagnoses Acute respiratory failure J96.00 Alcohol withdrawal F10.239
[2020-10-19] MEDS ORDERED: FUROSEMIDE 20 MG in SYRINGE 0 ML IV ONE ×2 (09:00→23:15)
[2020-10-19] MEDS ORDERED: SODIUM PHOSPHATE 3 MMOL/1 ML 5 ML VIAL IV ONE (09:00)
[2020-10-19] MEDS: LACTULOSE SYRUP 30 GM/45 ML UDP PO SCH ×3 (09:04→20:20)
[2020-10-19] MEDS: FAMOTIDINE 20 MG in SYRINGE 3 ML IV SCH ×2 (09:04→20:23)
[2020-10-19] MEDS: THIAMINE HCL 200 MG in SODIUM CHLORIDE 0.9% 50 ML IV SCH ×3 (09:05→20:23)
[2020-10-19] MEDS ORDERED: SODIUM PHOSPHATE 15 MMOL in SODIUM CHLORIDE 0.9% 250 ML IV ONE (09:30)
[2020-10-19] MEDS: ALBUMIN 25% 12.5 GM/50 ML VIAL IV SCH ×4 (09:31→12:37)
[2020-10-19] MEDS: POTASSIUM CHLORIDE 20 MEQ/15 ML UDC GT SCH ×2 (09:33→11:55)
[2020-10-19] MEDS: LACTATED RINGER'S 1,000 ML IV SCH (11:56)
--- NOTE | 2020-10-19 12:34 | XRay Report ---
SINGLE VIEW CHEST CLINICAL HISTORY: Respiratory failure. FINDINGS: An AP, portable, upright chest radiograph is compared to study dated 10/18/2020. The examina tion is degraded by portable technique and patient rotation. An endotracheal tube and enteric tube a re unchanged in position. The cardiomediastinal silhouette is unremarkable. There are small pleural e ffusions with bibasilar consolidation, left greater than right.. No pneumothorax is seen. The bony th orax is grossly intact. IMPRESSION: 1. Stable lines and tubes. 2. Small pleural effusions with bibasilar consolidation, similar in appearance to yesterday. ACT 112: Negative or not required by law. Electronically signed by: Jose Figueroa M.D. 10/19/2020 12:33 PM
[2020-10-19] MEDS: ICU ELECTROLYTE REPLACEMENT PROTOCOL SCH (17:57)
[2020-10-19] MEDS ORDERED: ALBUMIN 25% 12.5 GM/50 ML VIAL IV ONE (22:58)
[2020-10-20] MEDS: LORazepam 1 MG TAB PO SCH ×2 (01:41→09:00)
[2020-10-20 04:16] LABS: iSTAT Allen Test Pass; iSTAT Art Bld Gas pCO2 Correct 40 mmHg (35-46); iSTAT Art Bld Gas pH Corrected 7.508 (7.35-7.45); iSTAT Arterial Blood Gas HCO3 31 meg/L (19-24); iSTAT Arterial Blood Gas pCO2 38 mmHg (35-46); iSTAT Arterial Blood Gas pH 7.52 (7.35-7.45); iSTAT Arterial Blood Gas pO2 59 mmHg (80-95); iSTAT Arterial Blood Gas pO2 C 62; iSTAT Carbon Dioxide 32 mmol/L (24-31); iSTAT FiO2 30 %; iSTAT Hematocrit 34 % (42-52); iSTAT Hemoglobin 11.6 g/dl (14.0-18.0); iSTAT Potassium 3.5 mmol/L (3.3-5.0); iSTAT Site R Radial; iSTAT Sodium 144 mmol/L (135-144)
[2020-10-20 05:18] LABS: Hemoglobin 11.3 g/dL (14.0-18.0); Mean Corpuscular Hemoglobin 36.2 pg (25-34); Mean Corpuscular Hgb Conc 33.2 g/dL (32-36); Mean Platelet Volume 11.1 fL (7.4-10.4); Nucleated RBC # (auto) 0.28 K/uL (0-0); Nucleated RBC % (auto) 1.8 %; Platelet Count 147 K/uL (130-400); RDW Coefficient of Variation 18.5 % (11.5-14.5); RDW Standard Deviation 71.4 fL (36.4-46.3); Red Blood Count 3.12 M/uL (4.7-6.1); White Blood Count 15.98 K/uL (4.8-10.8)
[2020-10-20] MEDS: HEPARIN SOD 5,000 UNIT/0.5 ML VIAL SQ SCH ×3 (05:26→21:11)
[2020-10-20] MEDS: PIPERACILLIN/TAZOBACTAM 3.375 GM in DEXTROSE 5% 100 ML IV SCH ×2 (05:26→16:27)
[2020-10-20 05:49] LABS: Albumin Level 2.6 gm/dl (3.4-5.0); BUN Creatinine Ratio 26.2 (10-20); Bilirubin,Total 10.1 mg/dl (0.2-1); Calcium 8.8 mg/dl (8.5-10.1); Creatinine Clr Calc Pharmacy 104.8 ml/min; Est GFR (African American) 118.6; Est GFR (Non-African American) 102.3; Magnesium 2.4 mg/dl (1.8-2.4); Phosphorus 2.7 mg/dl (2.5-4.9); Potassium 3.6 mmol/L (3.5-5.1); Total Protein 5.8 gm/dl (6.4-8.2)
[2020-10-20] MEDS: ICU ELECTROLYTE REPLACEMENT PROTOCOL SCH ×2 (05:53→17:18)
[2020-10-20] MEDS: POTASSIUM CHLORIDE 20 MEQ/15 ML UDC PO SCH ×2 (06:07→09:00)
[2020-10-20] MEDS: LACTATED RINGER'S 1,000 ML IV SCH (06:29)
--- NOTE | 2020-10-20 07:35 | XRay Report ---
XR chest 1V portable HISTORY: Respiratory failure. COMPARISON: 10/19/2020. FINDINGS: Endotracheal tube terminates 4.3 cm from the katy. Nasogastric tube terminates below the diaphragm. The tip is not included on this study. No pneumothorax. The heart is normal in size. Small bilateral pleural effusions and bibasilar densities are again noted. No evidence for pulmonary edema . The upper lung zones appear clear. IMPRESSION: No change in the small bilateral pleural effusions and bibasilar densities. Satisfactory support line placement. ACT 112: Negative or not required by law. Electronically signed by: Viktor Pa M.D. 10/20/2020 7:33 AM
[2020-10-20 08:12] LABS: INR 1.3 (0.9-1.1); Prothrombin Time 13.3 Seconds (9.0-12.0)
--- NOTE | 2020-10-20 08:32 | Critical Care Progress Note ---
Date of Service October 20, 2020 Assessment & Plan (1) Acute respiratory failure: Reason Critically Ill: 40-year-old male currently hospitalized and undergoing treatment for pancreatitis, alcohol withdrawal presents to the ICU as a transfer due to acute hypoxic respiratory failure, now requiring intubation. Recommendations: Neuro -suspect related to medications as well as alcohol withdrawal and hepatic encephalopathy. Continue lactulose and rifaxamin. Continue high-dose thiamine for alcohol withdrawal. ammonia level decreased to 22. EEG today rule out nonconvulsive status epilepticus. MRI ordered for after EEG -There was discussion that previously there patient had cochlear implants, there is no evidence of this on CT and nursing staff contacted mother who reported he has not had a metallic insert will have MRI proceed with nd reening. Cardiac - CHFTTE demonstrated mild to moderate reduced LVEF 40 to 45% with global hypokinesis. Mild to moderate mitral regurg and mild tricuspid regurg. No evidence of pulm edema. Respiratory - Acute hypoxic respiratory failurechest x-ray/CT is consistent with bibasilar consolidations which may be consistent with aspiration. Resp culture pending, GPC on gram stain. Procalcitonin was elevated. Transitioned to PSV and tolerating well. Possibility of hepatopulmonary syndrome is raised. Resp alkalosis may have been related to hepatic failure vs contraction GI - Acute alcoholic hepatitis with pancreatitis. Numbers are stable to slightly improved today. Will defer any repeat imaging at this point time. Discriminant score is only 17 so no benefit for steroids at this point time. Meld score is elevated and continued alcohol abuse will likely result in progressive liver dysfunction and . The patient absolutely needs to be abstinent from alcohol. Continue lactulose and rifaximin. Reglan x1, possible CT scan with IV and oral contrast for ileus versus Stephen's versus obstruction. -Mineral oil enema x1 RENAL/LYTES - Renal function stable but UOP decreased overnight. -Acute kidney injury, absolute creatinine increased greater than 0.3 and elevation in BUN GFR is approximately 100: close monitoring Relative hypokalemia: 3.6 -40 M EQ's potassium chloride - Foleystrict I's and O's ENDO - No history diabetes or thyroid disease Currently euglycemic HEME - H&H stable, monitor routine CBCs Thrombocytopeniaimproving, monitor ID - Normal Shruti on sputum culture, no oxygen requirement, discontinue ABX LINES/IV ACCESS - Peripheral IVs, OG tube, ET tube DVT PROPHYLAXIS - SCDs, heparin Discussed on multidisciplinary rounds (2) Alcohol withdrawal: Admission and Anticipated Discharge Date Admission Date: October 14, 2020 Supervising Physician Co-Signing Physician Notes I have personally spent 45 minutes of critical care time in the direct management of this patient. This is a life/limb threatening event. This includes time spent evaluating patient, direct bedside care, chart review, placing orders, interpretation of diagnostic studies, discussion with consulta nts, patient, and/or family members regarding treatment decisions, as well as other required patient management activities. This time is exclusive of all separately billable procedures, and teaching time and separate from and in addition to any other critical care service time. Subjective No overnight events Review of Systems Review of Systems: Unobtainable due to endotracheal tube Physical Exam Physical Exam: General: Intubated and encephalopathic Neuro: Glascow Coma Scale: Eyes: 1, Verbal 1T, Motor 4, Total 6T Skin: Warm, dry, Head: Atraumatic Ears, nose, mouth and throat: airway obscured by endotracheal tube Cardiovascular: Normal peripheral perfusion Respiratory: no respiratory distress Gastrointestinal: Mild distention, hypoactive bowel sounds, no hepatosplenomegaly Rectal: Firm brown stool in vault manually disimpacted Musculoskeletal: No deformity Results & Data Results & Data ([facility]) Vital Signs (Past 12 Hours) Vital Signs Temp Pulse Resp BP Pulse Ox 10/20/20 07:05 100 H 15 90 10/20/20 06:30 37.8 C H 104 H 14 94/54 L 92 10/20/20 06:00 37.9 C H 98 H 14 94/56 L 92 10/20/20 05:30 37.9 C H 106 H 13 100/64 92 10/20/20 05:00 37.9 C H 100 H 14 98/58 L 92 10/20/20 04:30 37.9 C H 105 H 20 114/77 93 10/20/20 04:00 37.9 C H 96 H 13 95/61 L 93 10/20/20 03:30 38.0 C H 101 H 14 101/67 93 10/20/20 03:16 102 H 12 93 10/20/20 03:00 38.0 C H 107 H 15 104/74 93 10/20/20 02:30 38.1 C H 105 H 12 99/64 L 92 10/20/20 02:00 38.1 C H 103 H 14 97/68 L 95 10/20/20 01:30 38.2 C H 102 H 14 126/58 L 94 10/20/20 01:00 38.3 C H 105 H 13 108/65 93 10/20/20 00:30 38.4 C H 106 H 13 99/69 L 93 10/20/20 00:00 38.5 C H 110 H 14 110/77 93 10/19/20 23:30 38.4 C H 106 H 13 103/69 93 10/19/20 23:21 108 H 13 93 10/19/20 23:00 38.4 C H 110 H 14 100/71 93 10/19/20 22:30 38.4 C H 111 H 14 101/69 93 10/19/20 22:00 38.3 C H 111 H 14 110/77 93 10/19/20 21:30 38.3 C H 117 H 16 112/74 93 10/19/20 21:00 38.1 C H 127 H 20 113/75 92 10/19/20 20:30 38.7 C H 117 H 17 94 Coding Level of Care Code Critical Care 1st 30-74 mins Diagnoses Acute respiratory failure J96.00 Alcohol withdrawal F10.239
[2020-10-20] MEDS: THIAMINE HCL 200 MG in SODIUM CHLORIDE 0.9% 50 ML IV SCH ×3 (08:59→20:02)
[2020-10-20] MEDS: LACTULOSE SYRUP 30 GM/45 ML UDP PO SCH ×3 (08:59→20:03)
[2020-10-20] MEDS: FAMOTIDINE 20 MG in SYRINGE 3 ML IV SCH ×2 (09:00→20:02)
--- NOTE | 2020-10-20 09:17 | XRay Report ---
KUB CLINICAL HISTORY: abdominal distension, increased OGT output COMPARISON STUDY: CT of the abdomen and pelvis October 17, 2020. FINDINGS: Tip of nasogastric tube projects over the gastric antrum. There has been interval developme nt of moderate dilatation of the transverse colon and mild dilatation of the descending colon since C T of October 17, 2020. Transverse colon measures 10.5 cm in caliber. A large amount of stool within the descending colon is noted. There is apparent caliber change within the distal descending colon. Mild small bowel dilatation is also developed. IMPRESSION: Interval development of moderate large and small bowel dilatation since CT of October 17, 2020. This fa vors an ileus. A partial colonic obstruction could appear similar. Apparent caliber change within the distal descending colon, possibly due to stool. This is suboptimally assessed by K[facility]. If persistent symptoms, a CT is recommended. ACT 112: Negative or not required by law. Electronically signed by: Kennedy Gross M.D. 10/20/2020 9:16 AM
--- NOTE | 2020-10-20 09:35 | Gastrointestinal Consultation ---
Date of Consultation October 20, 2020 Assessment & Plan (1) Alcohol abuse: (2) Alcoholic encephalopathy: (3) Acute respiratory failure: (4) Pancreatitis: Patient with alcohol abuse and questionable gall bladder sludge with acute pancreatitis. Lipase has normalized. Liver panel is trending down. CT with findings of distal esophageal thickening and right colon thickening. 1. Await EEG and MRI as ordered. Ammonia level has normalized with use of Lactulose and Xifaxan. 2. Recommend strict alcohol abstinence upon discharge. Recommend inpatient alcohol rehabilitation. 3. Continue AWSS protocol and folic acid/thiamine when able to take PO. 4. Continue to trend liver and coag panels. 5. Will need endoscopic work up in the near future. Timing TBD. Possible need for EGD/EUS (given esophageal thickening, pancreatitis, TB elevation, ?gall bladder sludge) and colonoscopy (right colon thickening seen on CT). 6. Supportive care per primary team. Thank you for allowing us to participate in the care of this patient. If you have any questions or concerns, please do not hesitate to contact us. History of Present Illness Reason for Consultation: Acute pancreatitis Requesting Physician: BELGICA Paulino Attending Physician: Larry Garcia DO History of Present Illness Patient is a 40 y.o. male with a history of alcohol abuse and associated fatty liver and hepatomegaly admitted to the hospital on 10/13/20 with abdominal pain and inability to tolerate oral intake beginning 4 days [employer]. At the time of admission, he did have an elevated ETOH level of 201.7, lipase 4543, TB 8.9, DB 7.3, AST 247, and ALP 531. CT imaging obtained at that time demonstrated ascites, pancreatic edema/fluid consistent with acute pancreatitis. He was also noted to have distal esophageal thickening as well as a distended GB (felt related to the pancreatitis) and mild wall thickening of the ascending colon. He was treated supportively at that time. Unfortunately, it appears he developed alcohol withdrawal and encephalopathy with possible aspiration, hypoxia and respiratory failure requiring mechanical ventilation. The patient's DF was 15, therefore no steroids were initiated for alcoholic hepatitis. He has been started on Xifaxan and Lactulose for presumed alcohol encephalopathy and hyperammonemia. Pending EEG as ordered today. Lipase has normalized. Repeat CT performed several days ago with persistent findings of suspected right colon colopathy. Allergies Allergy/AdvReac Type Severity Reaction Status Date / Time No Known Allergies Allergy Unknown Verified 10/13/20 22:02 Home Medications Medication Instructions Recorded Confirmed Type ibuprofen 200 mg PO Q6H PRN 10/13/20 10/13/20 History multivitamin [Multiple Vitamin] 1 tab PO DAILY 10/13/20 10/13/20 History Patient History Medical History Erythema migrans (Lyme disease) No pertinent family history Surgical History No pertinent past surgical history Social History Smoking Status: Current every day smoker Second Hand Exposure: No; Hx Alcohol Use: Yes Alcohol type: hard liquor Alcohol Intake Frequency Comment: Patient drinks a quarter bottle of rum every day Hx Substance Use: Yes Last Used Substance: Days (ago) Preferred Language: Georgian Communication Ability: Impaired 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 Beliefs That Will Affect Care: None Current Living Situation: Family Feels Safe at Home: Yes Assistive Devices: Oxygen - Continuous Review of Systems Review of Systems: Unobtainable due to endotracheal tube Physical Exam Constitutional: WD/WN, vitals as above Respiratory: normal respiratory effort (on ventilator) Cardiovascular: Rate/Rhythm: regular rhythm and + tachycardic Gastrointestinal (Abdomen): Inspection/Auscultation: + abdomen distended and normal bowel sounds Percussion/Palpation: + abdomen firm Musculoskeletal: pedal edema Psychiatric: A+Ox3, euthymic affect Results & Data ([facility]) Vital Signs (Past 12 Hours) Vital Signs Temp Pulse Resp BP Pulse Ox 10/20/20 08:00 101 H 10/20/20 07:05 100 H 15 90 10/20/20 06:30 37.8 C H 104 H 14 94/54 L 92 10/20/20 06:00 37.9 C H 98 H 14 94/56 L 92 10/20/20 05:30 37.9 C H 106 H 13 100/64 92 10/20/20 05:00 37.9 C H 100 H 14 98/58 L 92 10/20/20 04:30 37.9 C H 105 H 20 114/77 93 10/20/20 04:00 37.9 C H 96 H 13 95/61 L 93 10/20/20 03:30 38.0 C H 101 H 14 101/67 93 10/20/20 03:16 102 H 12 93 10/20/20 03:00 38.0 C H 107 H 15 104/74 93 10/20/20 02:30 38.1 C H 105 H 12 99/64 L 92 10/20/20 02:00 38.1 C H 103 H 14 97/68 L 95 10/20/20 01:30 38.2 C H 102 H 14 126/58 L 94 10/20/20 01:00 38.3 C H 105 H 13 108/65 93 10/20/20 00:30 38.4 C H 106 H 13 99/69 L 93 10/20/20 00:00 38.5 C H 110 H 14 110/77 93 10/19/20 23:30 38.4 C H 106 H 13 103/69 93 10/19/20 23:21 108 H 13 93 10/19/20 23:00 38.4 C H 110 H 14 100/71 93 10/19/20 22:30 38.4 C H 111 H 14 101/69 93 10/19/20 22:00 38.3 C H 111 H 14 110/77 93 PG Care Time/CCT Total # of Minutes Spent Total Time Spent with Patient: Total time spent is greater than 50% in coordination of care (as documented) at patient's floor/unit and/or counseling patient: Coding Level of Care Code 15127 Inpt Consult Level 4 Diagnoses Alcohol abuse F10.10 Alcoholic encephalopathy G31.2; F10.20 Acute respiratory failure J96.00 Pancreatitis K85.20 Acute pancreatitis complication: unspecified Chronicity: acute Pancreatitis type: alcohol induced (1) Pancreatitis Acute pancreatitis complication: unspecified Chronicity: acute Pancreatitis type: alcohol induced Qualified Code(s): K85.20 - Alcohol induced acute pancreatitis without necrosis or infection
[2020-10-20] MEDS ORDERED: METOCLOPRAMIDE HCL INJ 5 MG/ML 2 ML VIAL IV STA (10:00)
[2020-10-20] MEDS ORDERED: MINERAL OIL ENEMA 133 ML BTL PR ONE (10:55)
--- NOTE | 2020-10-20 10:55 | Electroencephalogram ---
EEG Procedure Note Date of Service October 20, 2020 Start / End Times Start Time: 934 End Time: [address] Condon History 40-year-old with severe encephalopathy and unresponsiveness Home Medication List Medication Instructions Recorded Confirmed Type ibuprofen 200 mg PO Q6H PRN 10/13/20 10/13/20 History multivitamin [Multiple Vitamin] 1 tab PO DAILY 10/13/20 10/13/20 History Inpatient Medication List Heparin Sodium (Porcine) (Heparin Sod 5,000 Unit/0.5 Ml Vial) 5,000 units SQ Q8 [facility] Stop: 11/16/20 21:59 Last Admin: 10/20/20 05:26 Dose: 5,000 units Documented by: [id number] Admin: 10/19/20 20:20 Dose: 5,000 units Documented by: [id number] Admin: 10/19/20 15:05 Dose: 5,000 units Documented by: [id number] Admin: 10/19/20 05:35 Dose: 5,000 units Documented by: [id number] Admin: 10/18/20 20:58 Dose: 5,000 units Documented by: [id number] Admin: 10/18/20 14:58 Dose: 5,000 units Documented by: [id number] Admin: 10/18/20 04:58 Dose: 5,000 units Documented by: [id number] Admin: 10/17/20 22:24 Dose: 5,000 units Documented by: [id number] Famotidine 20 mg/ Syringe 5 mls @ 2.5 mls/min IV BID [facility] Stop: 11/13/20 08:59 Last Admin: 10/20/20 09:00 Dose: 2.5 mls/min Documented by: [id number] Admin: 10/19/20 20:23 Dose: 2.5 mls/min Documented by: [id number] Admin: 10/19/20 09:04 Dose: 2.5 mls/min Documented by: [id number] Admin: 10/18/20 20:55 Dose: 2.5 mls/min Documented by: [id number] Admin: 10/18/20 10:18 Dose: 2.5 mls/min Documented by: [id number] Admin: 10/17/20 22:27 Dose: 2.5 mls/min Documented by: [id number] Admin: 10/17/20 08:04 Dose: 2.5 mls/min Documented by: [id number] Admin: 10/16/20 21:31 Dose: 2.5 mls/min Documented by: [id number] Admin: 10/16/20 09:04 Dose: 2.5 mls/min Documented by: [id number] Admin: 10/15/20 21:01 Dose: 2.5 mls/min Documented by: [id number] Admin: 10/15/20 09:18 Dose: 2.5 mls/min Documented by: [id number] Admin: 10/14/20 21:49 Dose: 2.5 mls/min Documented by: [id number] Admin: 10/14/20 07:50 Dose: 2.5 mls/min Documented by: [id number] Thiamine HCl 200 mg/ Sodium (Chloride) 52 mls @ 208 mls/hr IV TID [facility]US[facility]OO Stop: 11/13/20 20:59 Last Infusion: 10/20/20 10:07 Dose: 0 mls/hr Documented by: [id number] Admin: 10/20/20 08:59 Dose: 208 mls/hr Documented by: [id number] Infusion: 10/19/20 21:00 Dose: 0 mls/hr Documented by: [id number] Admin: 10/19/20 20:23 Dose: 208 mls/hr Documented by: [id number] Infusion: 10/19/20 19:18 Dose: 0 mls/hr Documented by: [id number] Admin: 10/19/20 16:06 Dose: 208 mls/hr Documented by: [id number] Infusion: 10/19/20 09:37 Dose: 0 mls/hr Documented by: [id number] Admin: 10/19/20 09:05 Dose: 208 mls/hr Documented by: [id number] Infusion: 10/18/20 21:20 Dose: 0 mls/hr Documented by: [id number] Admin: 10/18/20 20:56 Dose: 208 mls/hr Documented by: [id number] Infusion: 10/18/20 16:47 Dose: 0 mls/hr Documented by: [id number] Admin: 10/18/20 14:57 Dose: 208 mls/hr Documented by: [id number] Infusion: 10/18/20 10:41 Dose: 0 mls/hr Documented by: [id number] Admin: 10/18/20 10:18 Dose: 208 mls/hr Documented by: [id number] Infusion: 10/17/20 23:14 Dose: 0 mls/hr Documented by: [id number] Admin: 10/17/20 22:18 Dose: 208 mls/hr Documented by: [id number] Infusion: 10/17/20 15:35 Dose: 0 mls/hr Documented by: [id number] Admin: 10/17/20 15:17 Dose: 208 mls/hr Documented by: [id number] Infusion: 10/17/20 08:21 Dose: 0 mls/hr Documented by: [id number] Admin: 10/17/20 08:05 Dose: 208 mls/hr Documented by: [id number] Infusion: 10/16/20 21:50 Dose: 0 mls/hr Documented by: [id number] Admin: 10/16/20 21:35 Dose: 208 mls/hr Documented by: [id number] Infusion: 10/16/20 14:34 Dose: 0 mls/hr Documented by: [id number] Admin: 10/16/20 13:49 Dose: 208 mls/hr Documented by: [id number] Infusion: 10/16/20 09:23 Dose: 0 mls/hr Documented by: [id number] Admin: 10/16/20 09:05 Dose: 208 mls/hr Documented by: [id number] Infusion: 10/15/20 21:15 Dose: 0 mls/hr Documented by: [id number] Admin: 10/15/20 21:00 Dose: 208 mls/hr Documented by: [id number] Infusion: 10/15/20 14:51 Dose: 0 mls/hr Documented by: [id number] Admin: 10/15/20 14:26 Dose: 208 mls/hr Documented by: [id number] Infusion: 10/15/20 09:34 Dose: 0 mls/hr Documented by: [id number] Admin: 10/15/20 09:18 Dose: 208 mls/hr Documented by: [id number] Infusion: 10/14/20 22:04 Dose: 0 mls/hr Documented by: [id number] Admin: 10/14/20 21:49 Dose: 208 mls/hr Documented by: [id number] Lactated Ringer's (Lr) 1,000 mls @ 50 mls/hr IV .Q20H [facility]OO Stop: 11/16/20 19:29 Last Admin: 10/20/20 06:29 Dose: 50 mls/hr Documented by: [id number] Infusion: 10/20/20 06:29 Dose: 50 mls/hr Documented by: [id number] Admin: 10/19/20 11:56 Dose: 50 mls/hr Documented by: [id number] Infusion: 10/19/20 10:43 Dose: 50 mls/hr Documented by: [id number] Infusion: 10/18/20 13:43 Dose: 50 mls/hr Documented by: [id number] Admin: 10/18/20 13:43 Dose: 125 mls/hr Documented by: [id number] Infusion: 10/18/20 12:09 Dose: 125 mls/hr Documented by: [id number] Admin: 10/18/20 04:09 Dose: 125 mls/hr Documented by: [id number] Infusion: 10/18/20 04:09 Dose: 125 mls/hr Documented by: [id number] Infusion: 10/17/20 20:58 Dose: 125 mls/hr Documented by: [id number] Admin: 10/17/20 20:26 Dose: 80 mls/hr Documented by: [id number] Dexmedetomidine HCl 200 mcg/ (Sodium Chloride) 50 mls @ 1.785 mls/hr IV .Q24H [facility]; Protocol Stop: 10/22/20 09:44 Last Admin: 10/19/20 21:24 Dose: 0.1 mcg/kg/hr, 1.8 mls/hr Documented by: [id number] Cosigned by: [id number] Titration: 10/19/20 19:19 Dose: 0.1 mcg/kg/hr, 1.8 mls/hr Documented by: [id number] Cosigned by: [id number] Admin: 10/19/20 17:57 Dose: Not Given Documented by: [id number] Titration: 10/19/20 11:38 Dose: 0.1 mcg/kg/hr, 1.8 mls/hr Documented by: [id number] Admin: 10/19/20 08:47 Dose: Not Given Documented by: [id number] Titration: 10/19/20 08:17 Dose: 0.2 mcg/kg/hr, 3.6 mls/hr Documented by: [id number] Titration: 10/19/20 07:10 Dose: 0.3 mcg/kg/hr, 5.4 mls/hr Documented by: [id number] Cosigned by: [id number] Admin: 10/19/20 03:49 Dose: 0.3 mcg/kg/hr, 5.4 mls/hr Documented by: [id number] Cosigned by: [id number] Titration: 10/19/20 03:12 Dose: 0.3 mcg/kg/hr, 5.4 mls/hr Documented by: [id number] Cosigned by: [id number] Titration: 10/18/20 19:22 Dose: 0.3 mcg/kg/hr, 5.4 mls/hr Documented by: [id number] Cosigned by: [id number] Admin: 10/18/20 16:56 Dose: 0.3 mcg/kg/hr, 5.4 mls/hr Documented by: [id number] Cosigned by: [id number] Titration: 10/18/20 16:56 Dose: 0.3 mcg/kg/hr, 5.4 mls/hr Documented by: [id number] Cosigned by: [id number] Titration: 10/18/20 12:57 Dose: 0.3 mcg/kg/hr, 5.4 mls/hr Documented by: [id number] Admin: 10/18/20 10:18 Dose: 0.2 mcg/kg/hr, 3.6 mls/hr Documented by: [id number] Cosigned by: [id number] Lactulose (Lactulose Syrup 30 Gm/45 Ml Udp) 30 gm PO TID [facility]US[facility]OO Stop: 11/16/20 20:59 Last Admin: 10/20/20 08:59 Dose: 30 gm Documented by: [id number] Admin: 10/19/20 20:20 Dose: 30 gm Documented by: [id number] Admin: 10/19/20 15:04 Dose: 30 gm Documented by: [id number] Admin: 10/19/20 09:04 Dose: 30 gm Documented by: [id number] Admin: 10/18/20 20:54 Dose: 30 gm Documented by: [id number] Admin: 10/18/20 14:58 Dose: 30 gm Documented by: [id number] Admin: 10/18/20 10:18 Dose: 30 gm Documented by: [id number] Admin: 10/17/20 21:13 Dose: 30 gm Documented by: [id number] Miscellaneous (Icu Electrolyte Replacement Protocol) 1 ea N/A BID@ [facility]; Protocol Stop: 10/26/20 17:59 Last Admin: 10/20/20 05:53 Dose: 1 ea Documented by: [id number] Admin: 10/19/20 17:57 Dose: Not Given Documented by: [id number] Ondansetron HCl (Ondansetron Inj 2 Mg/Ml 2 Ml Vial) 4 mg IV Q6H PRN PRN Reason: Nausea Stop: 11/13/20 01:38 Last Admin: 10/14/20 02:37 Dose: 4 mg Documented by: [id number] Rifaximin (Rifaximin 200 Mg Tablet) 200 mg PO TID [facility] Stop: 11/17/20 13:59 Last Admin: 10/20/20 09:00 Dose: 200 mg Documented by: [id number] Admin: 10/19/20 20:20 Dose: 200 mg Documented by: [id number] Admin: 10/19/20 16:05 Dose: 200 mg Documented by: [id number] Admin: 10/19/20 09:05 Dose: 200 mg Documented by: [id number] Admin: 10/18/20 20:54 Dose: 200 mg Documented by: [id number] Admin: 10/18/20 14:57 Dose: 200 mg Documented by: [id number] Discontinued Medications Chlordiazepoxide HCl (Chlordiazepoxide Hcl 25 Mg Cap) 25 mg PO Q8H [facility] Stop: 11/14/20 11:59 Last Admin: 10/17/20 13:05 Dose: Not Given Documented by: [id number] Admin: 10/17/20 04:24 Dose: Not Given Documented by: [id number] Admin: 10/16/20 21:31 Dose: 25 mg Documented by: [id number] Admin: 10/16/20 11:26 Dose: 25 mg Documented by: [id number] Admin: 10/16/20 04:22 Dose: 25 mg Documented by: [id number] Admin: 10/15/20 21:09 Dose: 25 mg Documented by: [id number] Admin: 10/15/20 13:03 Dose: 25 mg Documented by: [id number] Enoxaparin Sodium (Enoxaparin Inj 40 Mg/0.4 Ml Syr) 40 mg SQ Q24H [facility] Stop: 11/13/20 07:59 Last Admin: 10/17/20 08:05 Dose: 40 mg Documented by: [id number] Admin: 10/16/20 09:00 Dose: 40 mg Documented by: [id number] Admin: 10/15/20 09:27 Dose: Not Given Documented by: [id number] Admin: 10/14/20 07:35 Dose: 40 mg Documented by: [id number] Folic Acid (Folic Acid 1 Mg Tab) 1 mg PO QAM [facility]US[facility]OO Stop: 11/13/20 08:59 Last Admin: 10/17/20 08:05 Dose: 1 mg Documented by: [id number] Admin: 10/16/20 09:08 Dose: Not Given Documented by: [id number] Admin: 10/15/20 09:21 Dose: Not Given Documented by: [id number] Admin: 10/14/20 07:38 Dose: 1 mg Documented by: [id number] Gabapentin (Gabapentin 400 Mg Cap) 800 mg PO NOW ONE Stop: 10/14/20 02:01 Last Admin: 10/14/20 02:24 Dose: 800 mg Documented by: [id number] Gabapentin (Gabapentin 600 Mg Tab) 1,200 mg PO NOW ONE Stop: 10/14/20 08:01 Last Admin: 10/14/20 07:49 Dose: 1,200 mg Documented by: [id number] Gabapentin (Gabapentin 600 Mg Tab) 600 mg PO Q6H [facility] Stop: 10/14/20 20:01 Last Admin: 10/14/20 21:48 Dose: Not Given Documented by: [id number] Admin: 10/14/20 15:17 Dose: Not Given Documented by: [id number] Gabapentin (Gabapentin 600 Mg Tab) 600 mg PO Q12H [facility] Stop: 10/16/20 20:01 Last Admin: 10/16/20 21:28 Dose: 600 mg Documented by: [id number] Admin: 10/16/20 09:39 Dose: 600 mg Documented by: [id number] Admin: 10/16/20 09:08 Dose: Not Given Documented by: [id number] Gabapentin (Gabapentin 600 Mg Tab) 600 mg PO Q8H [facility]OO Stop: 10/15/20 20:01 Last Admin: 10/15/20 20:59 Dose: 600 mg Documented by: [id number] Admin: 10/15/20 11:44 Dose: 600 mg Documented by: [id number] Admin: 10/15/20 04:27 Dose: Not Given Documented by: [id number] Haloperidol Lactate (Haloperidol Lactate 5 Mg/Ml 1 Ml Vial) 2.5 mg IV NOW STA Stop: 10/15/20 05:08 Last Admin: 10/15/20 05:46 Dose: 2.5 mg Documented by: [id number] Sodium Chloride (Nss 1000ml) 1,000 mls @ 999 mls/hr IV .Q1H1M ONE Stop: 10/13/20 21:57 Last Infusion: 10/13/20 22:36 Dose: 0 mls/hr Documented by: [id number] Admin: 10/13/20 21:28 Dose: 999 mls/hr Documented by: [id number] Sodium Chloride (Nss 1000ml) 1,000 mls @ 999 mls/hr IV .Q1H1M ONE Stop: 10/14/20 00:25 Last Infusion: 10/14/20 00:35 Dose: 0 mls/hr Documented by: [id number] Admin: 10/13/20 23:34 Dose: 999 mls/hr Documented by: [id number] Potassium Chloride 40 meq/ (Sodium Chloride) 1,020 mls @ 75 mls/hr IV .[id number] [facility]US[facility]OO Stop: 10/14/20 14:05 Last Infusion: 10/14/20 15:27 Dose: 0 mls/hr Documented by: [id number] Admin: 10/14/20 02:23 Dose: 75 mls/hr Documented by: [id number] Magnesium Sulfate/Dextrose (Magnesium Sulfate / D5w) 1 gm in 100 mls @ 100 mls/hr IV NOW STA Stop: 10/14/20 01:25 Last Infusion: 10/14/20 01:41 Dose: 0 mls/hr Documented by: [id number] Admin: 10/14/20 00:41 Dose: 100 mls/hr Documented by: [id number] Lorazepam (Ativan) 1 mg in 2 mls @ 2 mls/min IV UD PRN; Protocol PRN Reason: EtOH Withdrawl AWSS Score 6,7 Stop: 11/13/20 01:38 Last Admin: 10/15/20 20:58 Dose: 2 mls/min Documented by: [id number] Admin: 10/14/20 02:30 Dose: 2 mls/min Documented by: [id number] Lorazepam (Ativan) 2 mg in 4 mls @ 4 mls/min IV UD PRN; Protocol PRN Reason: EtOH Withdrawl AWSS Score 8,9 Stop: 11/13/20 01:38 Last Admin: 10/17/20 09:00 Dose: 4 mls/min Documented by: [id number] Admin: 10/17/20 00:51 Dose: 4 mls/min Documented by: [id number] Admin: 10/16/20 04:22 Dose: 4 mls/min Documented by: [id number] Admin: 10/15/20 15:25 Dose: 4 mls/min Documented by: [id number] Admin: 10/15/20 09:15 Dose: 4 mls/min Documented by: [id number] Admin: 10/15/20 03:36 Dose: 4 mls/min Documented by: [id number] Admin: 10/14/20 19:32 Dose: 4 mls/min Documented by: [id number] Admin: 10/14/20 15:33 Dose: 4 mls/min Documented by: [id number] Admin: 10/14/20 12:05 Dose: 4 mls/min Documented by: [id number] Admin: 10/14/20 07:33 Dose: 4 mls/min Documented by: [id number] Lorazepam (Ativan) 3 mg in 6 mls @ 4 mls/min IV ONCE PRN; Protocol PRN Reason: EtOH Withdrawl AWSS Score >=10 Stop: 11/13/20 01:38 Last Admin: 10/15/20 10:41 Dose: 4 mls/min Documented by: [id number] Admin: 10/15/20 05:11 Dose: 4 mls/min Documented by: [id number] Admin: 10/14/20 23:17 Dose: 4 mls/min Documented by: [id number] Admin: 10/14/20 10:37 Dose: 4 mls/min Documented by: [id number] Promethazine HCl 6.25 mg/ (Sodium Chloride) 50.25 mls @ 201 mls/hr IV Q6H PRN PRN Reason: Nausea And Vomiting Stop: 11/13/20 04:56 Last Infusion: 10/14/20 06:22 Dose: 0 mls/hr Documented by: [id number] Admin: 10/14/20 06:07 Dose: 201 mls/hr Documented by: [id number] Thiamine HCl 200 mg/ Sodium (Chloride) 52 mls @ 208 mls/hr IV Q24H [facility]OO Stop: 11/13/20 07:59 Last Infusion: 10/14/20 09:19 Dose: 0 mls/hr Documented by: [id number] Infusion: 10/14/20 09:07 Dose: 208 mls/hr Documented by: [id number] Infusion: 10/14/20 08:02 Dose: 0 mls/hr Documented by: [id number] Admin: 10/14/20 07:59 Dose: 208 mls/hr Documented by: [id number] Sodium Chloride (Nss 1000ml) 1,000 mls @ 999 mls/hr IV .Q1H1M [facility]USHBOO Stop: 10/14/20 08:48 Last Infusion: 10/14/20 09:04 Dose: 0 mls/hr Documented by: [id number] Admin: 10/14/20 08:03 Dose: 999 mls/hr Documented by: [id number] Lactated Ringer's (Lr) 1,000 mls @ 125 mls/hr IV .Q8H [facility] Stop: 11/13/20 14:14 Last Infusion: 10/17/20 18:05 Dose: 0 mls/hr Documented by: [id number] Admin: 10/17/20 15:17 Dose: 125 mls/hr Documented by: [id number] Admin: 10/17/20 05:58 Dose: Not Given Documented by: [id number] Infusion: 10/17/20 05:58 Dose: 0 mls/hr Documented by: [id number] Infusion: 10/17/20 04:26 Dose: 0 mls/hr Documented by: [id number] Admin: 10/16/20 21:35 Dose: 125 mls/hr Documented by: [id number] Infusion: 10/16/20 21:35 Dose: 125 mls/hr Documented by: [id number] Admin: 10/16/20 13:49 Dose: 125 mls/hr Documented by: [id number] Infusion: 10/16/20 13:45 Dose: 125 mls/hr Documented by: [id number] Admin: 10/16/20 05:45 Dose: 125 mls/hr Documented by: [id number] Infusion: 10/16/20 05:45 Dose: 125 mls/hr Documented by: [id number] Admin: 10/15/20 22:20 Dose: 125 mls/hr Documented by: [id number] Infusion: 10/15/20 22:20 Dose: 125 mls/hr Documented by: [id number] Admin: 10/15/20 14:26 Dose: 125 mls/hr Documented by: [id number] Infusion: 10/15/20 14:14 Dose: 125 mls/hr Documented by: [id number] Admin: 10/15/20 06:14 Dose: 125 mls/hr Documented by: [id number] Infusion: 10/15/20 06:14 Dose: 125 mls/hr Documented by: [id number] Admin: 10/14/20 22:51 Dose: 125 mls/hr Documented by: [id number] Infusion: 10/14/20 22:51 Dose: 125 mls/hr Documented by: [id number] Admin: 10/14/20 15:25 Dose: 125 mls/hr Documented by: [id number] Thiamine HCl 200 mg/ Sodium (Chloride) 52 mls @ 208 mls/hr IV NOW STA Stop: 10/14/20 14:25 Last Infusion: 10/14/20 16:42 Dose: 0 mls/hr Documented by: [id number] Admin: 10/14/20 15:26 Dose: 208 mls/hr Documented by: [id number] Magnesium Sulfate/Dextrose (Magnesium Sulfate / D5w) 1 gm in 100 mls @ 50 mls/hr IV ONE ONE Stop: 10/15/20 10:44 Last Infusion: 10/15/20 11:25 Dose: 0 mls/hr Documented by: [id number] Admin: 10/15/20 09:17 Dose: 50 mls/hr Documented by: [id number] Potassium Phosphate 21 mmol/ (Sodium Chloride) 507 mls @ 88 mls/hr IV ONE ONE Stop: 10/15/20 14:45 Last Infusion: 10/15/20 15:33 Dose: 0 mls/hr Documented by: [id number] Admin: 10/15/20 09:18 Dose: 88 mls/hr Documented by: [id number] Furosemide 40 mg/ Syringe 4 mls @ 4 mls/min IV ONE ONE Stop: 10/17/20 04:31 Last Admin: 10/17/20 04:42 Dose: 4 mls/min Documented by: [id number] Piperacillin Sod/Tazobactam (Sod 3.375 gm/ Dextrose) 115 mls @ 28.75 mls/hr IV Q8H [facility]; Protocol Stop: 10/24/20 13:59 Last Infusion: 10/20/20 10:07 Dose: 0 mls/hr Documented by: [id number] Admin: 10/20/20 05:26 Dose: 28.8 mls/hr Documented by: [id number] Infusion: 10/20/20 01:37 Dose: 0 mls/hr Documented by: [id number] Admin: 10/19/20 21:24 Dose: 28.8 mls/hr Documented by: [id number] Infusion: 10/19/20 20:23 Dose: 0 mls/hr Documented by: [id number] Admin: 10/19/20 16:06 Dose: 28.8 mls/hr Documented by: [id number] Infusion: 10/19/20 09:37 Dose: 0 mls/hr Documented by: [id number] Admin: 10/19/20 05:34 Dose: 28.8 mls/hr Documented by: [id number] Infusion: 10/19/20 01:41 Dose: 0 mls/hr Documented by: [id number] Admin: 10/18/20 21:41 Dose: 28.8 mls/hr Documented by: [id number] Infusion: 10/18/20 18:39 Dose: 0 mls/hr Documented by: [id number] Admin: 10/18/20 14:57 Dose: 28.8 mls/hr Documented by: [id number] Infusion: 10/18/20 09:19 Dose: 0 mls/hr Documented by: [id number] Admin: 10/18/20 04:56 Dose: 28.8 mls/hr Documented by: [id number] Infusion: 10/18/20 02:34 Dose: 0 mls/hr Documented by: [id number] Admin: 10/17/20 22:25 Dose: 28.8 mls/hr Documented by: [id number] Infusion: 10/17/20 20:41 Dose: 0 mls/hr Documented by: [id number] Admin: 10/17/20 15:17 Dose: 28.8 mls/hr Documented by: [id number] Piperacillin Sod/Tazobactam (Sod 4.5 gm/ Dextrose) 120 mls @ 200 mls/hr IV NOW ONE; Protocol Stop: 10/17/20 08:35 Last Infusion: 10/17/20 08:58 Dose: 0 mls/hr Documented by: [id number] Admin: 10/17/20 08:21 Dose: 200 mls/hr Documented by: [id number] Midazolam HCl (Versed) 125 mg in 250 mls @ 2 mls/hr IV .Q96H [facility]; Protocol Stop: 11/16/20 19:44 Last Titration: 10/18/20 11:59 Dose: 0 mg/hr, 0 mls/hr Documented by: [id number] Cosigned by: [id number] Titration: 10/18/20 10:18 Dose: 0 mg/hr, 0 mls/hr Documented by: [id number] Cosigned by: [id number] Admin: 10/17/20 20:37 Dose: 1 mg/hr, 2 mls/hr Documented by: [id number] Cosigned by: [id number] Fentanyl Citrate (Fentanyl Drip) 1,250 mcg in 250 mls @ 5 mls/hr IV .Q50H [facility]; Protocol Stop: 10/31/20 19:44 Last Titration: 10/18/20 11:59 Dose: 0 mcg/hr, 0 mls/hr Documented by: [id number] Cosigned by: [id number] Titration: 10/18/20 09:59 Dose: 0 mcg/hr, 0 mls/hr Documented by: [id number] Cosigned by: [id number] Admin: 10/17/20 20:37 Dose: 25 mcg/hr, 5 mls/hr Documented by: [id number] Cosigned by: [id number] Magnesium Sulfate/Dextrose (Magnesium Sulfate / D5w) 1 gm in 100 mls @ 50 mls/hr IV ONE ONE Stop: 10/17/20 22:59 Last Infusion: 10/17/20 23:14 Dose: 0 mls/hr Documented by: [id number] Admin: 10/17/20 20:59 Dose: 50 mls/hr Documented by: [id number] Albumin Human (Albumin 25%) 12.5 gm in 50 mls @ 50 mls/hr IV Q8H [facility] Stop: 10/20/20 20:59 Last Infusion: 10/18/20 05:14 Dose: 0 mls/hr Documented by: [id number] Admin: 10/18/20 04:10 Dose: 50 mls/hr Documented by: [id number] Infusion: 10/17/20 23:21 Dose: 0 mls/hr Documented by: [id number] Admin: 10/17/20 22:19 Dose: 50 mls/hr Documented by: [id number] Sodium Chloride (Nss 1000ml) 500 mls @ 500 mls/hr IV .Q1H ONE Stop: 10/17/20 21:56 Last Infusion: 10/17/20 23:14 Dose: 0 mls/hr Documented by: [id number] Admin: 10/17/20 21:12 Dose: 500 mls/hr Documented by: [id number] Albumin Human (Albumin 25%) 12.5 gm in 50 mls @ 50 mls/hr IV Q1H [facility] Stop: 10/19/20 12:59 Last Infusion: 10/19/20 15:31 Dose: 0 mls/hr Documented by: [id number] Admin: 10/19/20 12:37 Dose: 50 mls/hr Documented by: [id number] Infusion: 10/19/20 12:37 Dose: 50 mls/hr Documented by: [id number] Admin: 10/19/20 11:38 Dose: 50 mls/hr Documented by: [id number] Infusion: 10/19/20 11:00 Dose: 50 mls/hr Documented by: [id number] Admin: 10/19/20 10:00 Dose: 50 mls/hr Documented by: [id number] Infusion: 10/19/20 10:00 Dose: 50 mls/hr Documented by: [id number] Infusion: 10/19/20 09:37 Dose: 50 mls/hr Documented by: [id number] Admin: 10/19/20 09:31 Dose: 50 mls/hr Documented by: [id number] Furosemide 20 mg/ Syringe 2 mls @ 4 mls/min IV ONE ONE Stop: 10/19/20 09:01 Last Admin: 10/19/20 09:33 Dose: 4 mls/min Documented by: [id number] Sodium Phosphate 15 mmol/ (Sodium Chloride) 255 mls @ 88 mls/hr IV ONE ONE Stop: 10/19/20 12:23 Last Infusion: 10/19/20 15:31 Dose: 0 mls/hr Documented by: [id number] Admin: 10/19/20 09:32 Dose: 88 mls/hr Documented by: [id number] Albumin Human (Albumin 25%) 12.5 gm in 50 mls @ 50 mls/hr IV ONE ONE Stop: 10/19/20 23:57 Last Infusion: 10/20/20 00:19 Dose: 0 mls/hr Documented by: [id number] Admin: 10/19/20 23:16 Dose: 50 mls/hr Documented by: [id number] Furosemide 20 mg/ Syringe 2 mls @ 4 mls/min IV ONE ONE Stop: 10/19/20 23:16 Last Admin: 10/19/20 23:19 Dose: 4 mls/min Documented by: [id number] Ioversol (Ioversol 100ml) 100 ml IV ONCE ONE Stop: 10/14/20 00:43 Last Admin: 10/14/20 00:42 Dose: 92 ml Documented by: [id number] Ioversol (Optiray 320 125ml) 119 ml IV ONCE ONE Stop: 10/16/20 08:42 Last Admin: 10/16/20 08:43 Dose: 119 ml Documented by: [id number] Ioversol (Ioversol 100ml) 93 ml IV ONCE ONE Stop: 10/17/20 22:03 Last Admin: 10/17/20 22:04 Dose: 93 ml Documented by: [id number] Ketorolac Tromethamine (Ketorolac Tromethamine 15 Mg/Ml Vial) 10 mg IV NOW ONE Stop: 10/14/20 02:28 Last Admin: 10/14/20 02:56 Dose: 10 mg Documented by: [id number] Lactulose (Lactulose Syrup 30 Gm/45 Ml Udp) 30 gm PO NOW STA Stop: 10/17/20 20:08 Last Admin: 10/17/20 21:38 Dose: Not Given Documented by: [id number] Lorazepam (Lorazepam 1 Mg Tab) 2 mg PO Q6H KHUSHBOO Stop: 11/17/20 09:44 Last Admin: 10/19/20 03:49 Dose: 2 mg Documented by: [id number] Admin: 10/18/20 20:56 Dose: 2 mg Documented by: [id number] Admin: 10/18/20 15:01 Dose: 2 mg Documented by: [id number] Admin: 10/18/20 10:21 Dose: 2 mg Documented by: [id number] Lorazepam (Lorazepam 1 Mg Tab) 1 mg PO Q8H KHUSHBOO Stop: 11/18/20 09:59 Last Admin: 10/20/20 09:00 Dose: 1 mg Documented by: [id number] Admin: 10/20/20 01:41 Dose: 1 mg Documented by: [id number] Admin: 10/19/20 17:57 Dose: 1 mg Documented by: [id number] Admin: 10/19/20 09:35 Dose: 1 mg Documented by: [id number] Metoprolol Tartrate (Metoprolol Tartrate 1 Mg/Ml Vial) 5 mg IV Q4 PRN PRN Reason: sbp> 185, dbp >95, HR >120 Stop: 11/13/20 14:01 Last Admin: 10/17/20 16:44 Dose: 5 mg Documented by: [id number] Admin: 10/17/20 06:42 Dose: 5 mg Documented by: [id number] Admin: 10/16/20 12:46 Dose: 5 mg Documented by: [id number] Admin: 10/14/20 14:22 Dose: 5 mg Documented by: [id number] Miscellaneous (Rapid Sequence Induction Bag) Confirm Administered Dose 1 ea .ROUTE .STK-MED ONE Stop: 10/17/20 19:26 Last Admin: 10/17/20 20:26 Dose: 1 ea Documented by: [id number] Morphine Sulfate (Morphine Sulfate 4 Mg/Ml 1 Ml Carp\Vial) 4 mg IV NOW STA Stop: 10/13/20 20:58 Last Admin: 10/13/20 21:28 Dose: 4 mg Documented by: [id number] Morphine Sulfate (Morphine Sulfate 4 Mg/Ml 1 Ml Carp\Vial) 4 mg IV NOW STA Stop: 10/13/20 23:26 Last Admin: 10/13/20 23:34 Dose: 4 mg Documented by: [id number] Morphine Sulfate (Morphine Sulfate 2 Mg/Ml Carp) 2 mg IV Q3H PRN PRN Reason: Pain Stop: 10/28/20 02:26 Last Admin: 10/14/20 03:41 Dose: 2 mg Documented by: [id number] Multivitamins (Multivitamin Tab) 1 tab PO DAILY KHUSHBOO Stop: 11/13/20 08:59 Last Admin: 10/17/20 08:05 Dose: 1 tab Documented by: [id number] Admin: 10/16/20 09:08 Dose: Not Given Documented by: [id number] Admin: 10/15/20 09:21 Dose: Not Given Documented by: [id number] Admin: 10/14/20 07:38 Dose: 1 tab Documented by: [id number] Ondansetron HCl (Ondansetron Inj 2 Mg/Ml 2 Ml Vial) 4 mg IV NOW STA Stop: 10/13/20 20:58 Last Admin: 10/13/20 21:28 Dose: 4 mg Documented by: [id number] Ondansetron HCl (Ondansetron Inj 2 Mg/Ml 2 Ml Vial) 4 mg IV NOW STA Stop: 10/13/20 23:26 Last Admin: 10/13/20 23:34 Dose: 4 mg Documented by: [id number] Phenobarbital Sodium (Phenobarbital Sodium 130 Mg/Ml Vial) 280 mg IM NOW STA Stop: 10/17/20 12:30 Last Admin: 10/17/20 13:08 Dose: 280 mg Documented by: [id number] Phenobarbital Sodium (Phenobarbital Sodium 130 Mg/Ml Vial) 210 mg IM ONE ONE Stop: 10/17/20 15:31 Last Admin: 10/17/20 16:43 Dose: 210 mg Documented by: [id number] Phenobarbital Sodium (Phenobarbital Sodium 130 Mg/Ml Vial) 210 mg IM ONE ONE Stop: 10/17/20 18:31 Last Admin: 10/17/20 20:45 Dose: Not Given Documented by: [id number] Potassium Chloride (Potassium Chloride 20 Meq/15 Ml Udc) 40 meq PO NOW ONE Stop: 10/17/20 21:01 Last Admin: 10/17/20 20:59 Dose: 40 meq Documented by: [id number] Potassium Chloride (Potassium Chloride 20 Meq/15 Ml Udc) 40 meq PO NOW STA Stop: 10/18/20 06:10 Last Admin: 10/18/20 08:08 Dose: 40 meq Documented by: [id number] Potassium Chloride (Potassium Chloride 20 Meq/15 Ml Udc) 20 meq GT Q4 KHUSHBOO Stop: 10/19/20 13:01 Last Admin: 10/19/20 11:55 Dose: 20 meq Documented by: [id number] Admin: 10/19/20 09:33 Dose: 20 meq Documented by: [id number] Potassium Chloride (Potassium Chloride 20 Meq/15 Ml Udc) 20 meq PO Q4H KHUSHBOO Stop: 10/20/20 10:01 Last Admin: 10/20/20 09:00 Dose: 20 meq Documented by: [id number] Admin: 10/20/20 06:07 Dose: 20 meq Documented by: [id number] Propofol (Propofol Iv Emulsion 10 Mg/Ml 100 Ml Vial) Confirm Administered Dose 1,000 mg IV .STK-MED ONE Stop: 10/17/20 19:28 Last Admin: 10/17/20 20:26 Dose: 1,000 mg Documented by: [id number] Cosigned by: [id number] Vitamin B Complex/Folic Acid (Nephrocaps) 1 cap PO QAM [id number] Stop: 11/13/20 08:59 Last Admin: 10/17/20 08:05 Dose: 1 cap Documented by: [id number] Admin: 10/16/20 09:08 Dose: Not Given Documented by: [id number] Admin: 10/15/20 09:21 Dose: Not Given Documented by: [id number] Admin: 10/14/20 07:37 Dose: 1 cap Documented by: [id number] Description This is a 21 electrode EEG with a single channel dedicated to limited EKG. The electrodes were placed in accordance with the International 10-20 system. Interpretation The predominant background activity consists of an irregular 3-5 Hz activity, of up to 40 mV in amplitude, seen symmetrically distributed in all head regions bilaterally. This activity has little attenuation with eye-opening and other alerting procedures. Photic stimulation was performed and elicited no change in the background activity and no abnormal responses were seen. Hyperventilation was not performed. A mild amount of muscle and head movement artifact activity contaminated the recording in the frontal head regions bilaterally. there was artifact hinder interpretation for several seconds on 2 or 3 occasions as the shampoo technician was adjusting/reattaching leads. Throughout the recording, no focal abnormalities or potentially epileptogenic discharges were seen. In summary, this EEG was abnormal due to moderate irregular generalized slowing. No focal abnormalities or potentially epileptogenic discharges were seen. Clinical Correlation The abscence of potentially epileptogenic activity exclude subclinical status epilepticus. The abnormal slowing is consistent with a moderate encephalopathy. [facility] EEG Procedure Codes Indication for Procedure (1) Alcoholic encephalopathy: (2) Acute respiratory failure: Neurology Neurology: 19318 EEG include record awake & drowsy
[2020-10-20] MEDS: POTASSIUM CHLORIDE / WTR 10 MEQ/100 ML PLCT IV SCH ×4 (12:15→16:39)
[2020-10-20] MEDS ORDERED: GADOBUTROL 65ML VIAL IV ONE (13:25)
[2020-10-20] MEDS ORDERED: OPTIRAY 320 100ml IV ONE (13:28)
--- NOTE | 2020-10-20 13:28 | Magnetic Resonance Report ---
MRI OF THE BRAIN WITHOUT AND WITH IV CONTRAST CLINICAL HISTORY: encephalopathy COMPARISON STUDY: Noncontrast head CT dated 10/18/2020 TECHNIQUE: MRI of the brain was performed from the vertex to the skull base utilizing various T1 and T2 weighted sequences. Following the IV administration of 7 mL of Gadavist contrast, additional enhan giovanny images were obtained. FINDINGS: Sagittal T1, axial diffusion, proton density and T2 weighted axial, coronal FLAIR, and pre and post a xial T1-weighted images were acquired. These were supplemented with post gadolinium coronal T1 weight ed images. No intra or extra-axial mass lesions are visualized. Axial diffusion-weighted images reveal no evidence of acute or subacute infarction. There is no evidence of ventricular dilatation. Proton density T2-weighted and FLAIR images reveal no significant intraparenchymal signal abnormaliti es. There is equivocal mild cerebellar atrophy. There are no abnormal flow voids. There is no evidence of pathologic enhancement. IMPRESSION: 1. Mildly motion degraded study 2. No acute intracranial findings 3. No evidence of acute or subacute infarction 4. No evidence of intracranial mass 5. Suspected mild cerebellar atrophy ACT 112: Negative or not required by law. Electronically signed by: Eb Lux M.D. 10/20/2020 1:27 PM
--- NOTE | 2020-10-20 14:11 | CT Scan Report ---
ABDOMEN AND PELVIS CT WITH IV AND ORAL CONTRAST CT DOSE: 618.10 mGy.cm HISTORY: Abdominal distention. TECHNIQUE: Multiaxial CT images of the abdomen and pelvis were performed following the use of intrave nous and oral contrast. A dose lowering technique was utilized adhering to the principles of ALARA. COMPARISON STUDY: Abdomen and pelvis CT 10/17/2020. FINDINGS: Patchy groundglass densities within the right lower lobe and bilateral upper lobes posterio rly. This favors a pneumonia and could be due to aspiration. To indent consolidation of the left lowe r lobe which could be due to complete collapse. The distal left lower lobe bronchi appear opacified. This could also be due to aspiration or mucous plugging. There is also consolidation within the right lower lobe posteriorly with areas of mucous plugging. Trace bilateral pleural effusions. Mildly dist ended and contrast-filled distal esophagus. There is a small hiatus hernia. Nasogastric tube terminat es in the gastric antrum. Multiple distended and fluid-filled loops of large and small bowel seen thr oughout the majority of the abdomen. The sigmoid colon is decompressed. Questionable transition point at the proximal sigmoid colon on image 431. Therefore, this could represent a large bowel obstructio n versus an ileus. Trace ascites is noted. Bladder is decompressed by a Hoover catheter which appears in good position. There is moderate body wall edema. Small amount of perihepatic ascites. Severe hepa tic steatosis. Increased density within the gallbladder favors vicarious excretion of contrast. The m ain portal vein is patent. The splenic vein is attenuated but patent. The spleen is normal in size. N o hydronephrosis. Normal adrenal glands. Mild peripancreatic inflammatory change has improved. No ret roperitoneal lymphadenopathy. There appears to be multiple bubbles of gas within the posterior descen ding colon. This likely represents pneumatosis. There is mild inflammatory change surrounding the goldie cending colon without definite bowel wall thickening. There is mild thickening of the proximal ascend ing colon and cecum. This remains unchanged. No pneumoperitoneum. The celiac, superior mesenteric, an d inferior mesenteric arteries appear patent. IMPRESSION: 1. Pneumatosis involving the descending colon with mild adjacent inflammatory change. This can be see n in the setting of ischemic colitis. 2. Distended and fluid-filled loops of large and small bowel with a possible transition point at the proximal sigmoid colon. Therefore, this could represent a large bowel obstruction versus ileus. 3. Small amount of ascites. 4. Hepatic steatosis. 5. Peripancreatic inflammatory change has improved. 6. Nasogastric tube terminates in the stomach. 7. Left lower lobe collapse/consolidation likely due to the mucous plugging. There is also partial co nsolidation of the right lower lobe posteriorly with mucous plugging. This could be due to prior aspi ration. There are additional patchy groundglass airspace opacities within the lungs consistent with a pneumonia. 8. These findings were discussed with Dr. Condon at 2:10 PM on 10/20/2020. ACT 112: Negative or not required by law. Electronically signed by: Viktor Pa M.D. 10/20/2020 2:10 PM
--- NOTE | 2020-10-20 14:21 | Communication Note ---
Date of Service: October 20, 2020 Clinical update [address] abdomen pelvis with radiologist Was notified of possible aspiration event when patient was proceeding with MRI. Current ventilator settings: Tidal volume 450 respiratory rate 14, PEEP 8 FiO2 80% saturating 94% Reviewed brain MRI findings: Still dense encephalopathy EEG reviewed no evidence of seizure activity Stat consult general surgery given pneumatosis of descending colon -ARIADNA reported patent, no history atrial fibrillation -Ordered lactic acid, VBG, repeat BMP, ionized calcium, type and screen Update: 1525 PTT: 35.2; VB.44/46/42; Lactate 2.9; ionized ca: 1.19; BMP Cr: 0.97 BUN 27 D/W Bajwa of general surgery, recommendations reviewed: Probable need for ERCP and colonoscopy to further elucidate area of questionable ischemia. Discussed with gastroenterology, obtain right upper quadrant ultrasound to rule out a calculus cholecystitis which would not be amenable to percutaneous drainage here, if right upper quadrant ultrasound largely unremarkable would likely benefit from ERCP. Ultrasound ordered. Unclear if elevated lactate is from aspiration event versus colon versus biliary dysfunction and will continue to trend. Discussed with mother at bedside. I have personally spent 45 minutes of critical care time in the direct management of this patient. This is a life/limb threatening event. This includes time spent evaluating patient, direct bedside care, chart review, placing orders, interpretation of diagnostic studies, discussion with consultants, patient, and/or family members regarding treatment decisions, as well as other required patient management activities. This time is exclusive of all separately billable procedures, and teaching time and separate from and in addition to any other critical care service time. Coding Level of Care Code Critical Care leny hamlin'l 30 min
[2020-10-20 14:51] LABS: Base Excess VBG 5.3 mEq/L; pH VBG 7.44 (7.36-7.41)
[2020-10-20 15:01] LABS: Partial Thromboplastin Ratio 1.3; Partial Thromboplastin Time 35.2 Seconds (21.0-31.0)
[2020-10-20 15:06] LABS: BUN Creatinine Ratio 27.7 (10-20); Calcium 9.4 mg/dl (8.5-10.1); Est GFR (African American) 112.7; Est GFR (Non-African American) 97.3; Potassium 3.8 mmol/L (3.5-5.1)
[2020-10-20] MEDS ORDERED: PIPERACILL/TAZOBAC CONSULT ACTIVE PRN (15:52)
--- NOTE | 2020-10-20 15:56 | Surgery Consultation ---
Date of Consultation October 20, 2020 Assessment & Plan (1) Pneumatosis of intestines: 40 year-old male admitted to hospital on 10/13/2020 with alcoholic pancreatitis, hepatitis, who developed alcoholic withdrawal and encephalopathy and eventually acute respiratory failure requiring intubation now with distended colon and small bowel, questionable transition in sigmoid colon and pneumatosis of the descending colon on repeat CT scan. Lactic acid 2.9. T. bili and Direct bilirubin have been elevated since admission. t. bili 8.9 --> 13.2 (10/17/20) --> 10.1 d. bili 7.3 --> 11.1 (10/17/2020) --> 8.0 Plan: Unsure of etiology of the pneumatosis. Given the high elevation of t. bili and d. bili on admission and throughout hospitalization question of gallbladder pathology. Recommend ultrasound of RUQ to further evaluate and reconsultation of GI . Patient may need ERCP. Would also recommend possible colonoscopy to further evaluate the colon. No immediate surgical intervention recommended at this time. Dr. Bajwa and I discussed CT scan findings with patient's mother and the need for further work-up Patient may require transfer to tertiary center for further management based on further work-up and GI's recommendations. Continue current ICU management (2) Alcoholic encephalopathy: (3) Acute respiratory failure: Dr. Bajwa has seen and examined patient, reviewed chart and imaging and developed above plan. History of Present Illness Reason for Consultation: colonic pneumatosis vs ileus vs colonic obstruction Requesting Physician: Randell Condon Attending Physician: Larry Garcia DO History of Present Illness Randell is a 40 year-old male who presented to [facility] on 10/13/2020 with alcoholic hepatitis and pancreatitis. His status began to decline and developed acute respiratory failure and required intubation on 10/17/2020 and was transferred to the ICU. Patient had increasing abdominal distention and a repeat CT scan of abdomen and pelvis with contrast showing distended small and large bowel with pneumatosis of the descending colon and a questionable transition point in the sigmoid colon concerning for possible ischemic bowel vs colonic obstruction. Patient is still intubated so history obtained by chart. Mother was unaware of how much her son was drinking. Per record drinks quarter of a bottle of rum per day. Allergies Allergy/AdvReac Type Severity Reaction Status Date / Time No Known Allergies Allergy Unknown Verified 10/13/20 22:02 Home Medications Medication Instructions Recorded Confirmed Type ibuprofen 200 mg PO Q6H PRN 10/13/20 10/13/20 History multivitamin [Multiple Vitamin] 1 tab PO DAILY 10/13/20 10/13/20 History Patient History Medical History Erythema migrans (Lyme disease) No pertinent family history Surgical History No pertinent past surgical history Social History Smoking Status: Current every day smoker Second Hand Exposure: No; Hx Alcohol Use: Yes Alcohol type: hard liquor Alcohol Intake Frequency Comment: Patient drinks a quarter bottle of rum every day Hx Substance Use: Yes Last Used Substance: Days (ago) Preferred Language: Thai Communication Ability: Impaired 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 Beliefs That Will Affect Care: None Current Living Situation: Family Feels Safe at Home: Yes Assistive Devices: Oxygen - Continuous Review of Systems Review of Systems: Unobtainable due to endotracheal tube Physical Exam 2 Constitutional: + ill appearing and + mechanically ventilated; no acute distress and not intoxicated appearing Respiratory: normal respiratory effort; no respiratory distress, no labored breathing and does not use accessory muscles Gastrointestinal (Abdomen): Inspection/Auscultation: + abdomen distended; + abnormal bowel sounds and no abdominal surgical scar Percussion/Palpation: abdomen soft; no hernia and no ascites Skin: + jaundice Results & Data ([facility]) Vital Signs (Past 12 Hours) Vital Signs Temp Pulse Resp BP Pulse Ox 10/20/20 14:02 37.3 C 126 H 136/82 96 10/20/20 13:55 120 H 27 H 95 10/20/20 13:49 125 H 129/84 10/20/20 12:02 37.6 C H 120 H 121/75 10/20/20 11:08 37.5 C 113 H 104/59 L 88 L 10/20/20 10:40 112 H 23 90 10/20/20 10:08 37.5 C 112 H 104/62 88 L 10/20/20 09:46 37.5 C 110 H 108/65 89 L 10/20/20 09:16 37.5 C 112 H 103/60 90 10/20/20 08:46 37.6 C H 113 H 106/58 L 88 L 10/20/20 08:16 37.7 C H 107 H 97/53 L 88 L 10/20/20 08:00 101 H 10/20/20 07:46 37.7 C H 103 H 97/60 L 90 10/20/20 07:16 37.7 C H 104 H 97/62 L 90 10/20/20 07:05 100 H 15 90 10/20/20 06:30 37.8 C H 104 H 14 94/54 L 92 10/20/20 06:00 37.9 C H 98 H 14 94/56 L 92 10/20/20 05:30 37.9 C H 106 H 13 100/64 92 10/20/20 05:00 37.9 C H 100 H 14 98/58 L 92 10/20/20 04:30 37.9 C H 105 H 20 114/77 93 10/20/20 04:00 37.9 C H 96 H 13 95/61 L 93 Laboratory Results 10/20/20 10/20/20 10/20/20 Range/Units 14:33 14:33 14:33 WBC (4.8-10.8) K/uL RBC (4.7-6.1) M/uL Hgb (14.0-18.0) g/dL POC Hgb (14.0-18.0) g/dl Hct (42-52) % POC Hct (42-52) % MCV (80-100) fL MCH (25-34) pg MCHC (32-36) g/dL RDW Std Deviation (36.4-46.3) fL RDW Coeff of Arabella (11.5-14.5) % Plt Count (130-400) K/uL MPV (7.4-10.4) fL Absolute Nucleated RBC (0-0) K/uL Nucleated RBC % (auto) % PT (9.0-12.0) Seconds INR (0.9-1.1) APTT (21.0-31.0) Seconds PTT Ratio Sample Site POC pH (7.35-7.45) POC pCO2 (35-46) mmHg POC pO2 (80-95) mmHg POC HCO3 (19-24) sonali/L POC Total CO2 (24-31) mmol/L POC Base Excess (-9-1.8) sonali/L ABG pH (Temp Correct) (7.35-7.45) ABG pCO2 (Temp Corrct (35-46) mmHg POC ABG pO2 at Pt Temp POC ABG O2 Sat (90-95) % Won Test VBG pH 7.44 H (7.36-7.41) VBG pCO2 46 (38-50) mmHg VBG pO2 42 mmHg VBG HCO3 30 mmol/L VBG O2 Saturation 75.0 % VBG Base Excess 5.3 mEq/L Barometric Pressure 739.4 mm/Hg O2 Delivery Device POC FiO2 % PEEP POC Sodium (135-144) mmol/L Sodium 143 (136-145) mmol/L POC Potassium (3.3-5.0) mmol/L Potassium 3.8 (3.5-5.1) mmol/L Chloride 106 (98-107) mmol/L Carbon Dioxide 30 (21-32) mmol/L Anion Gap 7.0 (3-11) BUN 27 H (7-18) mg/dl Creatinine 0.97 (0.6-1.4) mg/dl Est Cr Clr Drug Dosing 104.0 ml/min Est GFR ( Amer) 112.7 Est GFR (Non-Af Amer) 97.3 BUN/Creatinine Ratio 27.7 H (10-20) Glucose 153 H (70-99) mg/dl Lactate (0.4-2.0) mmol/L Calcium 9.4 (8.5-10.1) mg/dl Ionized Calcium 1.19 (1.12-1.32) mmol/L Phosphorus (2.5-4.9) mg/dl Magnesium (1.8-2.4) mg/dl Total Bilirubin (0.2-1) mg/dl Direct Bilirubin (0-0.2) mg/dl AST (15-37) U/L ALT (12-78) U/L Alkaline Phosphatase (45-117) U/L Ammonia (11-32) umol/L Total Protein (6.4-8.2) gm/dl Albumin (3.4-5.0) gm/dl Lipase (73-393) U/L Blood Type Antibody Screen 10/20/20 10/20/20 10/20/20 Range/Units 14:33 14:33 14:33 WBC (4.8-10.8) K/uL RBC (4.7-6.1) M/uL Hgb (14.0-18.0) g/dL POC Hgb (14.0-18.0) g/dl Hct (42-52) % POC Hct (42-52) % MCV (80-100) fL MCH (25-34) pg MCHC (32-36) g/dL RDW Std Deviation (36.4-46.3) fL RDW Coeff of Arabella (11.5-14.5) % Plt Count (130-400) K/uL MPV (7.4-10.4) fL Absolute Nucleated RBC (0-0) K/uL Nucleated RBC % (auto) % PT (9.0-12.0) Seconds INR (0.9-1.1) APTT 35.2 H (21.0-31.0) Seconds PTT Ratio 1.3 Sample Site POC pH (7.35-7.45) POC pCO2 (35-46) mmHg POC pO2 (80-95) mmHg POC HCO3 (19-24) sonali/L POC Total CO2 (24-31) mmol/L POC Base Excess (-9-1.8) sonali/L ABG pH (Temp Correct) (7.35-7.45) ABG pCO2 (Temp Corrct (35-46) mmHg POC ABG pO2 at Pt Temp POC ABG O2 Sat (90-95) % Won Test VBG pH (7.36-7.41) VBG pCO2 (38-50) mmHg VBG pO2 mmHg VBG HCO3 mmol/L VBG O2 Saturation % VBG Base Excess mEq/L Barometric Pressure mm/Hg O2 Delivery Device POC FiO2 % PEEP POC Sodium (135-144) mmol/L Sodium (136-145) mmol/L POC Potassium (3.3-5.0) mmol/L Potassium (3.5-5.1) mmol/L Chloride (98-107) mmol/L Carbon Dioxide (21-32) mmol/L Anion Gap (3-11) BUN (7-18) mg/dl Creatinine (0.6-1.4) mg/dl Est Cr Clr Drug Dosing ml/min Est GFR ( Amer) Est GFR (Non-Af Amer) BUN/Creatinine Ratio (10-20) Glucose (70-99) mg/dl Lactate 2.9 H* (0.4-2.0) mmol/L Calcium (8.5-10.1) mg/dl Ionized Calcium (1.12-1.32) mmol/L Phosphorus (2.5-4.9) mg/dl Magnesium (1.8-2.4) mg/dl Total Bilirubin (0.2-1) mg/dl Direct Bilirubin (0-0.2) mg/dl AST (15-37) U/L ALT (12-78) U/L Alkaline Phosphatase (45-117) U/L Ammonia (11-32) umol/L Total Protein (6.4-8.2) gm/dl Albumin (3.4-5.0) gm/dl Lipase (73-393) U/L Blood Type O Negative Antibody Screen NEGATIVE 10/20/20 10/20/20 10/20/20 Range/Units 07:22 05:02 05:02 WBC (4.8-10.8) K/uL RBC (4.7-6.1) M/uL Hgb (14.0-18.0) g/dL POC Hgb (14.0-18.0) g/dl Hct (42-52) % POC Hct (42-52) % MCV (80-100) fL MCH (25-34) pg MCHC (32-36) g/dL RDW Std Deviation (36.4-46.3) fL RDW Coeff of Arabella (11.5-14.5) % Plt Count (130-400) K/uL MPV (7.4-10.4) fL Absolute Nucleated RBC (0-0) K/uL Nucleated RBC % (auto) % PT 13.3 H (9.0-12.0) Seconds INR 1.3 H (0.9-1.1) APTT (21.0-31.0) Seconds PTT Ratio Sample Site POC pH (7.35-7.45) POC pCO2 (35-46) mmHg POC pO2 (80-95) mmHg POC HCO3 (19-24) sonali/L POC Total CO2 (24-31) mmol/L POC Base Excess (-9-1.8) sonali/L ABG pH (Temp Correct) (7.35-7.45) ABG pCO2 (Temp Corrct (35-46) mmHg POC ABG pO2 at Pt Temp POC ABG O2 Sat (90-95) % Won Test VBG pH (7.36-7.41) VBG pCO2 (38-50) mmHg VBG pO2 mmHg VBG HCO3 mmol/L VBG O2 Saturation % VBG Base Excess mEq/L Barometric Pressure mm/Hg O2 Delivery Device POC FiO2 % PEEP POC Sodium (135-144) mmol/L Sodium (136-145) mmol/L POC Potassium (3.3-5.0) mmol/L Potassium (3.5-5.1) mmol/L Chloride (98-107) mmol/L Carbon Dioxide (21-32) mmol/L Anion Gap (3-11) BUN (7-18) mg/dl Creatinine (0.6-1.4) mg/dl Est Cr Clr Drug Dosing ml/min Est GFR ( Amer) Est GFR (Non-Af Amer) BUN/Creatinine Ratio (10-20) Glucose (70-99) mg/dl Lactate (0.4-2.0) mmol/L Calcium (8.5-10.1) mg/dl Ionized Calcium (1.12-1.32) mmol/L Phosphorus (2.5-4.9) mg/dl Magnesium (1.8-2.4) mg/dl Total Bilirubin (0.2-1) mg/dl Direct Bilirubin (0-0.2) mg/dl AST (15-37) U/L ALT (12-78) U/L Alkaline Phosphatase (45-117) U/L Ammonia 22.0 (11-32) umol/L Total Protein (6.4-8.2) gm/dl Albumin (3.4-5.0) gm/dl Lipase 281 (73-393) U/L Blood Type Antibody Screen 10/20/20 10/20/20 10/20/20 Range/Units 05:02 05:02 04:03 WBC 15.98 H (4.8-10.8) K/uL RBC 3.12 L (4.7-6.1) M/uL Hgb 11.3 L (14.0-18.0) g/dL POC Hgb 11.6 L (14.0-18.0) g/dl Hct 34.0 L (42-52) % POC Hct 34 L (42-52) % MCV 109.0 H (80-100) fL MCH 36.2 H (25-34) pg MCHC 33.2 (32-36) g/dL RDW Std Deviation 71.4 H (36.4-46.3) fL RDW Coeff of Arabella 18.5 H (11.5-14.5) % Plt Count 147 (130-400) K/uL MPV 11.1 H (7.4-10.4) fL Absolute Nucleated RBC 0.28 H (0-0) K/uL Nucleated RBC % (auto) 1.8 % PT (9.0-12.0) Seconds INR (0.9-1.1) APTT (21.0-31.0) Seconds PTT Ratio Sample Site R Radial POC pH 7.52 H* (7.35-7.45) POC pCO2 38 (35-46) mmHg POC pO2 59 L (80-95) mmHg POC HCO3 31 H (19-24) sonali/L POC Total CO2 32 H (24-31) mmol/L POC Base Excess 8.0 H (-9-1.8) sonali/L ABG pH (Temp Correct) 7.508 H* (7.35-7.45) ABG pCO2 (Temp Corrct 40 (35-46) mmHg POC ABG pO2 at Pt Temp 62 POC ABG O2 Sat 93.0 (90-95) % Won Test Pass VBG pH (7.36-7.41) VBG pCO2 (38-50) mmHg VBG pO2 mmHg VBG HCO3 mmol/L VBG O2 Saturation % VBG Base Excess mEq/L Barometric Pressure mm/Hg O2 Delivery Device Ventilator POC FiO2 30 % PEEP 5 POC Sodium 144 (135-144) mmol/L Sodium 145 (136-145) mmol/L POC Potassium 3.5 (3.3-5.0) mmol/L Potassium 3.6 (3.5-5.1) mmol/L Chloride 107 (98-107) mmol/L Carbon Dioxide 30 (21-32) mmol/L Anion Gap 8.0 (3-11) BUN 24 H (7-18) mg/dl Creatinine 0.93 D (0.6-1.4) mg/dl Est Cr Clr Drug Dosing 104.8 ml/min Est GFR ( Amer) 118.6 Est GFR (Non-Af Amer) 102.3 BUN/Creatinine Ratio 26.2 H (10-20) Glucose 133 H (70-99) mg/dl Lactate (0.4-2.0) mmol/L Calcium 8.8 D (8.5-10.1) mg/dl Ionized Calcium (1.12-1.32) mmol/L Phosphorus 2.7 (2.5-4.9) mg/dl Magnesium 2.4 (1.8-2.4) mg/dl Total Bilirubin 10.1 H (0.2-1) mg/dl Direct Bilirubin 8.0 H (0-0.2) mg/dl AST 161 H (15-37) U/L ALT 75 (12-78) U/L Alkaline Phosphatase 190 H (45-117) U/L Ammonia (11-32) umol/L Total Protein 5.8 L (6.4-8.2) gm/dl Albumin 2.6 L (3.4-5.0) gm/dl Lipase (73-393) U/L Blood Type Antibody Screen Diagnostic Findings ABDOMEN AND PELVIS CT WITH IV AND ORAL CONTRAST 10/20/2020 CT DOSE: 618.10 mGy.cm HISTORY: Abdominal distention. TECHNIQUE: Multiaxial CT images of the abdomen and pelvis were performed following the use of intravenous and oral contrast. A dose lowering technique was utilized adhering to the principles of ALARA. COMPARISON STUDY: Abdomen and pelvis CT 10/17/2020. FINDINGS: Patchy groundglass densities within the right lower lobe and bilateral upper lobes posteriorly. This favors a pneumonia and could be due to aspiration. To indent consolidation of the left lower lobe which could be due to complete collapse. The distal left lower lobe bronchi appear opacified. This could also be due to aspiration or mucous plugging. There is also consolidation within the right lower lobe posteriorly with areas of mucous plugging. Trace bilateral pleural effusions. Mildly distended and contrast-filled distal esophagus. There is a small hiatus hernia. Nasogastric tube terminates in the gastric antrum. Multiple distended and fluid-filled loops of large and small bowel seen throughout the majority of the abdomen. The sigmoid colon is decompressed. Questionable transition point at the proximal sigmoid colon on image 431. Therefore, this could represent a large bowel obstruction versus an ileus. Trace ascites is noted. Bladder is decompressed by a Hoover catheter which appears in good position. There is moderate body wall edema. Small amount of perihepatic ascites. Severe hepatic steatosis. Increased density within the gallbladder favors vicarious excretion of contrast. The main portal vein is patent. The splenic vein is attenuated but patent. The spleen is normal in size. No hydronephrosis. Normal adrenal glands. Mild peripancreatic inflammatory change has improved. No retroperitoneal lymphadenopathy. There appears to be multiple bubbles of gas within the posterior descending colon. This likely represents pneumatosis. There is mild inflammatory change surrounding the descending colon without definite bowel wall thickening. There is mild thickening of the proximal ascending colon and cecum. This remains unchanged. No pneumoperitoneum. The celiac, superior mesenteric, and inferior mesenteric arteries appear patent. IMPRESSION: 1. Pneumatosis involving the descending colon with mild adjacent inflammatory change. This can be seen in the setting of ischemic colitis. 2. Distended and fluid-filled loops of large and small bowel with a possible transition point at the proximal sigmoid colon. Therefore, this could represent a large bowel obstruction versus ileus. 3. Small amount of ascites. 4. Hepatic steatosis. 5. Peripancreatic inflammatory change has improved. 6. Nasogastric tube terminates in the stomach. 7. Left lower lobe collapse/consolidation likely due to the mucous plugging. There is also partial consolidation of the right lower lobe posteriorly with mucous plugging. This could be due to prior aspiration. There are additional patchy groundglass airspace opacities within the lungs consistent with a pneumonia. 8. These findings were discussed with Dr. Condon at 2:10 PM on 10/20/2020.
--- NOTE | 2020-10-20 16:55 | Ultrasound Report ---
BILIARY ULTRASOUND CLINICAL HISTORY: Abdominal pain. COMPARISON STUDY: CT scan dated 10/20/2020 FINDINGS: The study is limited from a technical standpoint. The patient was ventilated unable to cooperate with breath-holding or positioning. The liver is of increased echogenicity, consistent with hepatic steatosis. No focal masses are visual ized. No pancreatic lesions are visualized. There was gallbladder sludge. There was no significant wall thickening. The common bile duct was nonvisualized. There is a small amount of ascites present. IMPRESSION: 1. Technically limited study 2. Sludge-filled gallbladder. No significant wall thickening. No intrahepatic biliary ductal dilatati on 3. Nonvisualization of the common bile duct 4. Hepatic steatosis ACT 112: Negative or not required by law. Electronically signed by: Eb Lux M.D. 10/20/2020 4:54 PM
[2020-10-20 19:46] LABS: pH VBG 7.48 (7.36-7.41)
[2020-10-20] MEDS ORDERED: METOPROLOL TARTRATE 1 MG/ML VIAL IV ONE (21:44)
[2020-10-20] MEDS ORDERED: METOPROLOL TARTRATE 1 MG/ML VIAL IV STA ×2 (21:46→22:16)
--- NOTE | 2020-10-20 22:48 | Hospitalist Progress Note ---
Date of Service October 20, 2020 Assessment & Plan (1) Acute respiratory failure: acute respiratory failure was combination of aspiration pneumonia, benzodiazepine use for alcohol withdrawal, and initiation of some phenobarbital to try to help reduce his alcohol withdrawal. he remains sedated and ventilated, no plans for extubation MRI brain with encephalopathy, EEG as well today (2) Alcohol withdrawal: remains sedated will need strict alcohol abstinence pts Discriminant function was low on admission thus making pt NOT be a candidate for glucocorticoids and having alcoholic hepatitis ruled out at this time, his inr remains slighlty elevated but low (3) Pancreatitis: Alcoholic pancreatitis/diffuse fatty liver/jaundice/ascites- CT abdomen pelvis 10/13/20 IMPRESSION: 1. Moderate edema/fluid surrounding the edematous pancreas. This likely represents an acute pancreatitis. Recommend correlation with pancreatic enzymes. 2. Mildly distended gallbladder which is likely secondary to the acute pancreatitis. 3. Hepatomegaly demonstrating fatty change. 4. Small amount of scattered ascites. 5. Moderate thickening of the distal esophagus. 6. Mild thickening at the ascending colon. no obstruction noted lipase is improving slowly Abd US with sludge in gall bladder CT abd/pelvis 10/20 with some improvement in peripancreatic inflammation (4) Tachycardia: tachycardia from withdrawal, using prn metoprolol, CTA did not show PE, Ehco with EF 45% probably from alcohol, improved with better sedation Echocardiogram showed ejection fraction slightly depressed at 45-50 consider this alcohol-related (5) Fatty liver: See above (6) Jaundice: bilirubin secondary to alcoholic hepatitis, discriminant function score low, no need for steroids no evidence of biliary obstruction on imaging elevated at 8 today (7) Alcohol abuse: Thiamine 200 mg iv tid Folic acid 1 mg p.o. daily Nephrocaps 1 p.o. daily needs inpatient alcohol rehab once he recovers from acute illness (8) Ascites: Paracentesis not indicated, no significant fluid (9) Hypokalemia: replete labs as needed (10) Hypomagnesemia: See above (11) Alcoholic encephalopathy: did have mildly eleveated ammonia on lacutulose MRI brain: no acute findings EEG: encephalopathy Admission and Anticipated Discharge Date Admission Date: October 14, 2020 Subjective reviewed chart and labs appreciate management of patient by Dr. Condon in ICU lactic acid courtney to 2.9 today, unclear etiology, looking into biliary source vs colon appreciate GI consult, will need scopes but defer for now given critical illness appreciate surgery consult, no plans for surgery at this time remains ventilated Review of Systems Review of Systems: Unobtainable due to endotracheal tube and Unobtainable due to reduced consciousness Physical Exam Constitutional: + ill appearing, + thin, + frail appearing and + mechanically ventilated Eyes: sclerae not anicteric Neck: trachea midline, no thyromegaly Respiratory: symmetric chest movement; no respiratory distress Auscultation: lungs clear to auscultation bilaterally Cardiovascular: Rate/Rhythm: regular rhythm and + tachycardic Heart Sounds: normal S1 and normal S2; no murmur Extremities: normal capillary refill; no edema Gastrointestinal (Abdomen): Inspection/Auscultation: abdomen normal to inspection and normal bowel sounds Percussion/Palpation: abdomen soft; abdomen nontender Skin: normal turgor, + jaundice and + dry skin Neurologic: CN's II-XI intact bilaterally and + obtunded; no focal motor deficits Results & Data Results & Data ([facility]) Vital Signs (Past 12 Hours) Vital Signs Temp Pulse Resp BP Pulse Ox 10/20/20 22:19 132 H 112/66 10/20/20 21:49 142 H 118/71 10/20/20 21:02 37.7 C H 139 H 28 H 118/71 91 10/20/20 20:02 37.6 C H 134 H 123/73 93 10/20/20 19:04 135 H 25 H 92 10/20/20 19:02 38.0 C H 137 H 118/75 92 10/20/20 18:02 131 H 118/73 91 10/20/20 17:02 38.1 C H 133 H 118/75 91 10/20/20 16:02 37.8 C H 131 H 115/74 91 10/20/20 15:51 130 H 10/20/20 15:48 128 H 24 94 10/20/20 15:02 37.6 C H 127 H 120/80 95 10/20/20 14:02 37.3 C 126 H 136/82 96 10/20/20 13:55 120 H 27 H 95 10/20/20 13:49 125 H 129/84 10/20/20 12:02 37.6 C H 120 H 121/75 10/20/20 11:08 37.5 C 113 H 104/59 L 88 L Laboratory Results Laboratory Results - last 24 hr 03/15/21 03/15/21 03/15/21 04:03 05:02 05:02 WBC 15.98 H RBC 3.12 L Hgb 11.3 L POC Hgb 11.6 L Hct 34.0 L POC Hct 34 L MCV 109.0 H MCH 36.2 H MCHC 33.2 RDW Std Deviation 71.4 H RDW Coeff of Arabella 18.5 H Plt Count 147 MPV 11.1 H Absolute Nucleated RBC 0.28 H Nucleated RBC % (auto) 1.8 PT INR APTT PTT Ratio Sample Site R Radial POC pH 7.52 H* POC pCO2 38 POC pO2 59 L POC HCO3 31 H POC Total CO2 32 H POC Base Excess 8.0 H ABG pH (Temp Correct) 7.508 H* ABG pCO2 (Temp Corrct 40 POC ABG pO2 at Pt Temp 62 POC ABG O2 Sat 93.0 Won Test Pass VBG pH VBG pCO2 VBG pO2 VBG HCO3 VBG O2 Saturation VBG Base Excess Barometric Pressure O2 Delivery Device Ventilator POC FiO2 30 PEEP 5 POC Sodium 144 Sodium 145 POC Potassium 3.5 Potassium 3.6 Chloride 107 Carbon Dioxide 30 Anion Gap 8.0 BUN 24 H Creatinine 0.93 D Est Cr Clr Drug Dosing 104.8 Est GFR ( Amer) 118.6 Est GFR (Non-Af Amer) 102.3 BUN/Creatinine Ratio 26.2 H Glucose 133 H Lactate Calcium 8.8 D Ionized Calcium Phosphorus 2.7 Magnesium 2.4 Total Bilirubin 10.1 H Direct Bilirubin 8.0 H AST 161 H ALT 75 Alkaline Phosphatase 190 H Ammonia Total Protein 5.8 L Albumin 2.6 L Lipase Procalcitonin Blood Type Antibody Screen 10/20/20 10/20/20 10/20/20 05:02 05:02 07:22 WBC RBC Hgb POC Hgb Hct POC Hct MCV MCH MCHC RDW Std Deviation RDW Coeff of Arabella Plt Count MPV Absolute Nucleated RBC Nucleated RBC % (auto) PT 13.3 H INR 1.3 H APTT PTT Ratio Sample Site POC pH POC pCO2 POC pO2 POC HCO3 POC Total CO2 POC Base Excess ABG pH (Temp Correct) ABG pCO2 (Temp Corrct POC ABG pO2 at Pt Temp POC ABG O2 Sat Won Test VBG pH VBG pCO2 VBG pO2 VBG HCO3 VBG O2 Saturation VBG Base Excess Barometric Pressure O2 Delivery Device POC FiO2 PEEP POC Sodium Sodium POC Potassium Potassium Chloride Carbon Dioxide Anion Gap BUN Creatinine Est Cr Clr Drug Dosing Est GFR ( Amer) Est GFR (Non-Af Amer) BUN/Creatinine Ratio Glucose Lactate Calcium Ionized Calcium Phosphorus Magnesium Total Bilirubin Direct Bilirubin AST ALT Alkaline Phosphatase Ammonia 22.0 Total Protein Albumin Lipase 281 Procalcitonin Blood Type Antibody Screen 10/20/20 10/20/20 10/20/20 14:33 14:33 14:33 WBC RBC Hgb POC Hgb Hct POC Hct MCV MCH MCHC RDW Std Deviation RDW Coeff of Arabella Plt Count MPV Absolute Nucleated RBC Nucleated RBC % (auto) PT INR APTT 35.2 H PTT Ratio 1.3 Sample Site POC pH POC pCO2 POC pO2 POC HCO3 POC Total CO2 POC Base Excess ABG pH (Temp Correct) ABG pCO2 (Temp Corrct POC ABG pO2 at Pt Temp POC ABG O2 Sat Won Test VBG pH VBG pCO2 VBG pO2 VBG HCO3 VBG O2 Saturation VBG Base Excess Barometric Pressure O2 Delivery Device POC FiO2 PEEP POC Sodium Sodium POC Potassium Potassium Chloride Carbon Dioxide Anion Gap BUN Creatinine Est Cr Clr Drug Dosing Est GFR ( Amer) Est GFR (Non-Af Amer) BUN/Creatinine Ratio Glucose Lactate 2.9 H* Calcium Ionized Calcium Phosphorus Magnesium Total Bilirubin Direct Bilirubin AST ALT Alkaline Phosphatase Ammonia Total Protein Albumin Lipase Procalcitonin Blood Type O Negative Antibody Screen NEGATIVE 10/20/20 10/20/20 10/20/20 14:33 14:33 14:33 WBC RBC Hgb POC Hgb Hct POC Hct MCV MCH MCHC RDW Std Deviation RDW Coeff of Arabella Plt Count MPV Absolute Nucleated RBC Nucleated RBC % (auto) PT INR APTT PTT Ratio Sample Site POC pH POC pCO2 POC pO2 POC HCO3 POC Total CO2 POC Base Excess ABG pH (Temp Correct) ABG pCO2 (Temp Corrct POC ABG pO2 at Pt Temp POC ABG O2 Sat Won Test VBG pH 7.44 H VBG pCO2 46 VBG pO2 42 VBG HCO3 30 VBG O2 Saturation 75.0 VBG Base Excess 5.3 Barometric Pressure 739.4 O2 Delivery Device POC FiO2 PEEP POC Sodium Sodium 143 POC Potassium Potassium 3.8 Chloride 106 Carbon Dioxide 30 Anion Gap 7.0 BUN 27 H Creatinine 0.97 Est Cr Clr Drug Dosing 104.0 Est GFR ( Amer) 112.7 Est GFR (Non-Af Amer) 97.3 BUN/Creatinine Ratio 27.7 H Glucose 153 H Lactate Calcium 9.4 Ionized Calcium 1.19 Phosphorus Magnesium Total Bilirubin Direct Bilirubin AST ALT Alkaline Phosphatase Ammonia Total Protein Albumin Lipase Procalcitonin Blood Type Antibody Screen 10/20/20 10/20/20 10/20/20 19:30 19:30 19:30 WBC RBC Hgb POC Hgb Hct POC Hct MCV MCH MCHC RDW Std Deviation RDW Coeff of Arabella Plt Count MPV Absolute Nucleated RBC Nucleated RBC % (auto) PT INR APTT PTT Ratio Sample Site POC pH POC pCO2 POC pO2 POC HCO3 POC Total CO2 POC Base Excess ABG pH (Temp Correct) ABG pCO2 (Temp Corrct POC ABG pO2 at Pt Temp POC ABG O2 Sat Won Test VBG pH 7.48 H VBG pCO2 40 VBG pO2 54 VBG HCO3 29 VBG O2 Saturation 87.0 VBG Base Excess 5.0 Barometric Pressure 738.7 O2 Delivery Device POC FiO2 PEEP POC Sodium Sodium POC Potassium Potassium Chloride Carbon Dioxide Anion Gap BUN Creatinine Est Cr Clr Drug Dosing Est GFR ( Amer) Est GFR (Non-Af Amer) BUN/Creatinine Ratio Glucose Lactate 2.7 H* Calcium Ionized Calcium Phosphorus Magnesium Total Bilirubin Direct Bilirubin AST ALT Alkaline Phosphatase Ammonia Total Protein Albumin Lipase Procalcitonin 3.67 H Blood Type Antibody Screen Medications Administered Current Inpatient Medications Heparin Sodium (Porcine) (Heparin Sod 5,000 Unit/0.5 Ml Vial) 5,000 units SQ Q8 [facility]US[facility] Stop: 11/16/20 21:59 Last Admin: 10/20/20 21:11 Dose: 5,000 units Documented by: Famotidine 20 mg/ Syringe 5 mls @ 2.5 mls/min IV BID KHUSHBOO Stop: 11/13/20 08:59 Last Admin: 10/20/20 20:02 Dose: 2.5 mls/min Documented by: Thiamine HCl 200 mg/ Sodium (Chloride) 52 mls @ 208 mls/hr IV TID KHUSHBOO Stop: 11/13/20 20:59 Last Infusion: 10/20/20 20:29 Dose: Infused Documented by: Lactated Ringer's (Lr) 1,000 mls @ 50 mls/hr IV .Q20H [facility] Stop: 11/16/20 19:29 Last Infusion: 10/20/20 14:00 Dose: 50 mls/hr Documented by: Dexmedetomidine HCl 200 mcg/ (Sodium Chloride) 50 mls @ 1.785 mls/hr IV .Q24H [facility]; Protocol Stop: 10/22/20 09:44 Last Titration: 10/20/20 07:30 Dose: Infused Documented by: Piperacillin Sod/Tazobactam (Sod 3.375 gm/ Dextrose) 115 mls @ 28.75 mls/hr IV Q8H [facility]; Protocol Stop: 10/22/20 15:59 Last Infusion: 10/20/20 20:28 Dose: Infused Documented by: Lactulose (Lactulose Syrup 30 Gm/45 Ml Udp) 30 gm PO TID [facility] Stop: 11/16/20 20:59 Last Admin: 10/20/20 20:03 Dose: 30 gm Documented by: Metoprolol Tartrate (Metoprolol Tartrate 1 Mg/Ml Vial) 2.5 mg IV Q4 [facility] Stop: 11/20/20 01:59 Midazolam HCl (Midazolam Bolus From Bag) 2 mg IV Q60M PRN PRN Reason: Sedation Stop: 11/16/20 19:43 Miscellaneous (Icu Electrolyte Replacement Protocol) 1 ea N/A BID@06,18 [facility]; Protocol Stop: 10/26/20 17:59 Last Admin: 10/20/20 17:18 Dose: Not Given Documented by: Miscellaneous Information (Piperacill/Tazobac Consult Active) 1 ea N/A UD PRN PRN Reason: Consult Stop: 11/19/20 15:51 Ondansetron HCl (Ondansetron Inj 2 Mg/Ml 2 Ml Vial) 4 mg IV Q6H PRN PRN Reason: Nausea Stop: 11/13/20 01:38 Last Admin: 10/14/20 02:37 Dose: 4 mg Documented by: Rifaximin (Rifaximin 200 Mg Tablet) 200 mg PO TID [facility] Stop: 11/17/20 13:59 Last Admin: 10/20/20 20:03 Dose: 200 mg Documented by: PG Care Time/CCT Total # of Minutes Spent Total Time Spent with Patient: Total time spent is greater than 50% in coordination of care (as documented) at patient's floor/unit and/or counseling patient: Coding Level of Care Code 11917 Subseq Hosp Care Lvl 2 Diagnoses Acute respiratory failure J96.00 Alcohol withdrawal F10.239 Pancreatitis K85.20 Acute pancreatitis complication: unspecified Chronicity: acute Pancreatitis type: alcohol induced Tachycardia R00.0 Fatty liver K76.0 Jaundice R17 Alcohol abuse F10.10 Ascites R18.8 Hypokalemia E87.6 Hypomagnesemia E83.42 Alcoholic encephalopathy G31.2; F10.20 (1) Pancreatitis Acute pancreatitis complication: unspecified Chronicity: acute Pancreatitis type: alcohol induced Qualified Code(s): K85.20 - Alcohol induced acute pancreatitis without necrosis or infection
[2020-10-21] MEDS: METOPROLOL TARTRATE 1 MG/ML VIAL IV SCH ×5 (01:55→16:29)
[2020-10-21] MEDS: LACTATED RINGER'S 1,000 ML IV SCH (04:05)
[2020-10-21 04:38] LABS: iSTAT Allen Test Pass; iSTAT Art Bld Gas pCO2 Correct 43 mmHg (35-46); iSTAT Art Bld Gas pH Corrected 7.483 (7.35-7.45); iSTAT Arterial Blood Gas HCO3 32 meg/L (19-24); iSTAT Arterial Blood Gas pCO2 42 mmHg (35-46); iSTAT Arterial Blood Gas pH 7.49 (7.35-7.45); iSTAT Arterial Blood Gas pO2 79 mmHg (80-95); iSTAT Arterial Blood Gas pO2 C 82; iSTAT Carbon Dioxide 33 mmol/L (24-31); iSTAT FiO2 50 %; iSTAT Hematocrit 38 % (42-52); iSTAT Hemoglobin 12.9 g/dl (14.0-18.0); iSTAT Potassium 3.9 mmol/L (3.3-5.0); iSTAT Site L Radial; iSTAT Sodium 143 mmol/L (135-144)
[2020-10-21] MEDS: HEPARIN SOD 5,000 UNIT/0.5 ML VIAL SQ SCH ×2 (06:09→14:45)
[2020-10-21 06:18] LABS: Albumin Level 2.3 gm/dl (3.4-5.0); BUN Creatinine Ratio 33.8 (10-20); Bilirubin Direct 8.3 mg/dl (0-0.2); Bilirubin,Total 10.6 mg/dl (0.2-1); Calcium 9.5 mg/dl (8.5-10.1); Creatinine Clr Calc Pharmacy 114.6 ml/min; Est GFR (African American) 124.5; Est GFR (Non-African American) 107.5; Magnesium 2.7 mg/dl (1.8-2.4); Phosphorus 3.1 mg/dl (2.5-4.9); Potassium 4.3 mmol/L (3.5-5.1); Total Protein 6.1 gm/dl (6.4-8.2)
[2020-10-21] MEDS: ICU ELECTROLYTE REPLACEMENT PROTOCOL SCH ×2 (06:29→16:28)
[2020-10-21 06:34] LABS: Hematocrit (blood only) 35.7 % (42-52); Hemoglobin 11.8 g/dL (14.0-18.0); Mean Corpuscular Hemoglobin 36.6 pg (25-34); Mean Corpuscular Hgb Conc 33.1 g/dL (32-36); Mean Corpuscular Volume 110.9 fL (80-100); Nucleated RBC # (auto) 0.31 K/uL (0-0); Nucleated RBC % (auto) 1.1 %; Platelet Count 178 K/uL (130-400); Red Blood Count 3.22 M/uL (4.7-6.1)
--- NOTE | 2020-10-21 06:36 | Critical Care Progress Note ---
Date of Service October 21, 2020 Assessment & Plan (1) Acute respiratory failure: Reason Critically Ill: 40-year-old male here with a PMHx significant for severe alcohol use disorder who was hospitalized for acute pancreatitis and alcohol withdrawal, and who was transferred to the ICU due to acute hypoxic respiratory failure requiring intubation in the setting of the above. ICU Day 5, Intubation Day 5. Neuro - [facility] ICU: POSITIVE, GCS score of 6T despite no sedatives on board - Ammonia WNL at 22 as of 10/20, Lactate downtrending to 2.5 this morning, MRI/EEG on 10/20 without evidence for acute process/pathology or non-convulsive status epilepticus - multifocal encephalopathy - suspect secondary to medications, alcohol withdrawal and hepatic encephalopathy - Continue lactulose and high-dose thiamine - d/c'd Rifaximin today Cardiac - HFrEF - TTE showed EF 40-45% with global hypokinesis, mild-moderate mitral regurgitation and mild tricuspid regurgitation - follow clinically for signs of hypervolemia, cautious IVFs as mentioned below Respiratory - - acute hypoxic respiratory failure: - Ventilator settings: AC/14/450/5/40, Pplat 14, P:F ratio 198 - AB.49/42/79/32/96 - metabolic alkalosis, suspect 2/2 lactulose - CXR with stable appearance of bibasilar consolidations and pleural effusions, sputum positive for bell-susceptible MSSA - continue Zosyn for 7 days (today is day 5) - discontinued Precedex today, as patient is encephalopathic and thus adequately sedated GI - Acute alcoholic hepatitis with pancreatitis, discriminant score of 17 (no benefit for steroids) and MELD score of 18, LFTS/bilirubin relatively stable today - RUQ US without signs of cholecystitis or biliary duct obstruction, KUB showing significant ileus vs partial SBO despite manual disimpaction yesterday - KUB/CT showing stable pneumatosis - continue lactulose enemas - continue OGT feeds, OG replacement with Albumin 5% 0.5cc/1cc OGT output (started with 500cc today) - GI/surgery following without current plans for acute intervention - would consider further evaluation of hepatobiliary pathology via ERCP RENAL/LYTES - SHAZIA, Cr increased from baseline 0.3, continue close monitoring - electrolytes WNL, metabolic alkalosis as mentioned above - transitioned LR to Normosol @80cc/hr to help with metabolic alkalosis - Replace lytes as needed - continue tejada - strict I/Os ENDO - no current problems or management HEME - - H&H stable - continue to monitor CBC ID - leukocytosis increased to 28 today, stable bibasilar consolidations, Procalcitonin elevated and lactate elevated but downtrending - suspect secondary to recent aspiration (although chemical/aspiration pneumonitis resolving) and biliary dysfunction/infection - continue Zosyn for 7 days (today is day 5) as noted above - fungal blood culture ordered - results pending LINES/IV ACCESS - PIV x2 intact, OGT, ETT DVT PROPHYLAXIS - Heparin 5000 SQ Q8H CODE STATUS: full code Thank you for allowing us to be part of this patient's care. Please refer to Dr. Condon's documentation for any further recommendations. (2) Alcoholic encephalopathy: (3) Alcohol withdrawal: (4) Pneumatosis of intestines: Admission and Anticipated Discharge Date Admission Date: October 14, 2020 Supervising Physician Co-Signing Physician Notes [] was resident physician during care of patient. I separately evaluated patient for albert portions of the history and the exam. I was present during the critical portion of medical decision making, and I discussed the case with the resident. I generally agree with the findings and plan. Continues dense encephalopathy, active cooling therapies, continue continue lactulose enemas as patient has ileus, chemical/aspiration pneumonitis largely resolved, OG replacement with 5% albumin half mL to 1 cc OG output: 2 vials 5% albumin today x1 fungal blood culture, adjust stop date for Zosyn antibiotics for 7-day total duration therapy. Will discuss with GI of any interventions. Subjective Patient had emesis x1 yesterday while supine in preparation for MRI; airway was suctioned, MRI completed, and no acute events since back in ICU. ETT in place. No BM since manual disimpaction yesterday. Patient was sleeping this morning but arousable to name. Review of Systems Review of Systems: Unobtainable due to endotracheal tube Physical Exam Physical Exam: General: Intubated and encephalopathic Neuro: Glascow Come Scale: Eyes 1, Verbal 1T, Motor 4, Total 6T HEENT: Atraumatic, airway obscured by ETT Pulm: Decreased air entry bilaterally, no respiratory distress. Cardiac: RRR, -mrg. Radial pulses intact and symmetrical. Abdominal: soft but mildly distended, non-tender, hypoactive BS x 4 Skin: warm, dry Results & Data Results & Data ([facility]) Vital Signs (Past 12 Hours) Vital Signs Temp Pulse Resp BP Pulse Ox 10/21/20 06:02 37.4 C 108 H 118/79 94 10/21/20 05:02 37.4 C 108 H 115/76 98 10/21/20 04:20 112 H 120/80 10/21/20 04:10 113 H 15 95 10/21/20 04:02 37.6 C H 115 H 120/80 95 10/21/20 03:02 37.9 C H 105 H 116/74 97 10/21/20 02:15 118 H 21 97 10/21/20 02:02 38.2 C H 117 H 116/72 96 10/21/20 01:55 124 H 106/65 10/21/20 01:02 38.5 C H 130 H 106/65 92 10/21/20 00:02 39.1 C H 136 H 116/66 90 10/21/20 00:00 132 H 10/20/20 23:02 132 H 110/65 91 10/20/20 22:50 130 H 26 H 92 10/20/20 22:30 125 H 108/64 92 10/20/20 22:19 132 H 112/66 10/20/20 22:15 130 H 112/66 91 10/20/20 22:02 130 H 111/71 92 10/20/20 21:49 142 H 118/71 10/20/20 21:02 37.7 C H 139 H 28 H 118/71 91 10/20/20 20:02 37.6 C H 134 H 123/73 93 10/20/20 19:04 135 H 25 H 92 10/20/20 19:02 38.0 C H 137 H 118/75 92 Resident Activity Tracking Resident Involvement: Resident Care Provided Care Provided: Adult Hospital Medicine
[2020-10-21] MEDS: DEXMEDETOMIDINE HCL 200 MCG in SODIUM CHLORIDE 0.9% 48 ML IV SCH (07:12)
[2020-10-21] MEDS: PIPERACILLIN/TAZOBACTAM 3.375 GM in DEXTROSE 5% 100 ML IV SCH ×3 (07:25→16:27)
--- NOTE | 2020-10-21 07:29 | XRay Report ---
SINGLE VIEW CHEST CLINICAL HISTORY: Respiratory failure. FINDINGS: An AP, portable, semierect chest radiograph is compared to study dated 10/20/2020. The exami nation is degraded by portable technique and patient rotation. Endotracheal and enteric tubes are unc hanged in position. The cardiomediastinal silhouette is unremarkable. There are small pleural effusio ns with bibasilar consolidation, left greater than right.. No pneumothorax is seen. The bony thorax i s grossly intact. IMPRESSION: 1. Stable lines and tubes. 2. There are pleural effusions with bibasilar consolidation, similar in appearance to yesterday. ACT 112: Negative or not required by law. Electronically signed by: Jose Figueroa M.D. 10/21/2020 7:28 AM
--- NOTE | 2020-10-21 07:34 | XRay Report ---
KUB HISTORY: ileus/ obstruction? COMPARISON: Abdomen and pelvis CT 10/20/2020. FINDINGS: There is again noted pneumatosis along the descending colon. Dilated gas-filled loops of la rge and small bowel are also not significant changed. The transverse colon measures up to 10 cm in di ameter. The dilated small bowel measures up to 3.7 cm in diameter. The distal colon is decompressed. However, there is gas within the rectum. Nasogastric tube terminates in the stomach. This is also unc hanged. No renal calculi. No ureteral calculi. IMPRESSION: 1. No change in the descending colon pneumatosis. 2. Dilated gas-filled loops of large and small bowel persists. The distal colon as decompressed. Agosto del[place], there remains gas within the rectum. Therefore, this could represent a partial large bowel obstr uction versus an ileus. 3. Nasogastric tube terminates in the stomach. ACT 112: Negative or not required by law. Electronically signed by: Viktor Pa M.D. 10/21/2020 7:33 AM
[2020-10-21] MEDS: FAMOTIDINE 20 MG in SYRINGE 3 ML IV SCH (08:47)
[2020-10-21] MEDS: THIAMINE HCL 200 MG in SODIUM CHLORIDE 0.9% 50 ML IV SCH ×2 (08:47→13:47)
[2020-10-21] MEDS: LACTULOSE 200 GM, WATER, STERILE IRRIG 700 ML, BARCODE IDENTIFIER 1 EA PR SCH ×2 (08:48→16:00)
--- NOTE | 2020-10-21 09:34 | Gastroenterology Progress Note ---
Date of Service October 21, 2020 Assessment & Plan (1) Alcohol abuse: (2) Alcoholic encephalopathy: (3) Acute respiratory failure: (4) Pancreatitis: Patient with alcohol abuse and questionable gall bladder sludge with acute pancreatitis. Lipase has normalized. Liver panel is trending down. CT with findings of distal esophageal thickening and right colon thickening. 1. Consider CT angio abdomen. Agree with lactulose enemas. 2. Ammonia level has normalized with use of Lactulose and Xifaxan. 3.. Recommend strict alcohol abstinence upon discharge. Recommend inpatient alcohol rehabilitation. 4. Continue AWSS protocol and folic acid/thiamine when able to take PO. 5. Continue to trend liver and coag panels. 6. Will need endoscopic work up in the near future. Timing TBD. Possible need for EGD/EUS (given esophageal thickening, pancreatitis, TB elevation, ?gall bladder sludge) and colonoscopy (right colon thickening seen on CT) although this is not recommended at present given pneumatosis of the descending colon. 7. Supportive care per primary team. Thank you for allowing us to participate in the care of this patient. If you have any questions or concerns, please do not hesitate to contact us. Admission and Anticipated Discharge Date Admission Date: October 14, 2020 Supervising Physician Co-Signing Physician Notes I personally evaluated the patient and agree with the findings as documented by BELGICA Urbina Exam: abd: soft, nt, nd when more stable, could potentially benefit from EGD/EUS/ERCP as he may indeed have choledocholithiasis in addition to his other problems. Subjective Patient is going to receive lactulose enemas after imaging findings of possible distal colonic ileus vs obstruction. Patient remains on mechanical ventilation. Review of Systems Review of Systems: Unobtainable due to reduced consciousness Physical Exam Constitutional: WD/WN, vitals as above Gastrointestinal (Abdomen): Inspection/Auscultation: + abdomen distended and + hypoactive bowel sounds Percussion/Palpation: + abdomen firm Results & Data Results & Data ([facility]) Vital Signs (Past 12 Hours) Vital Signs Temp Pulse Resp BP Pulse Ox 10/21/20 08:02 37.2 C 101 H 113/83 94 10/21/20 07:40 108 H 10/21/20 07:06 109 H 16 94 10/21/20 07:02 37.2 C 110 H 117/83 95 10/21/20 06:02 37.4 C 108 H 118/79 94 10/21/20 05:02 37.4 C 108 H 115/76 98 10/21/20 04:20 112 H 120/80 10/21/20 04:10 113 H 15 95 10/21/20 04:02 37.6 C H 115 H 120/80 95 10/21/20 03:02 37.9 C H 105 H 116/74 97 10/21/20 02:15 118 H 21 97 10/21/20 02:02 38.2 C H 117 H 116/72 96 10/21/20 01:55 124 H 106/65 10/21/20 01:02 38.5 C H 130 H 106/65 92 10/21/20 00:02 39.1 C H 136 H 116/66 90 10/21/20 00:00 132 H 10/20/20 23:02 132 H 110/65 91 10/20/20 22:50 130 H 26 H 92 10/20/20 22:30 125 H 108/64 92 10/20/20 22:19 132 H 112/66 10/20/20 22:15 130 H 112/66 91 10/20/20 22:02 130 H 111/71 92 10/20/20 21:49 142 H 118/71 Laboratory Results Abnormal lab results 10/20/20 10/20/20 10/20/20 Range/Units 14:33 14:33 14:33 WBC (4.8-10.8) K/uL RBC (4.7-6.1) M/uL Hgb (14.0-18.0) g/dL POC Hgb (14.0-18.0) g/dl Hct (42-52) % POC Hct (42-52) % MCV (80-100) fL MCH (25-34) pg Absolute Nucleated RBC (0-0) K/uL APTT 35.2 H (21.0-31.0) Seconds POC pH (7.35-7.45) POC pO2 (80-95) mmHg POC HCO3 (19-24) sonali/L POC Total CO2 (24-31) mmol/L POC Base Excess (-9-1.8) sonali/L ABG pH (Temp Correct) (7.35-7.45) POC ABG O2 Sat (90-95) % VBG pH (7.36-7.41) BUN 27 H (7-18) mg/dl BUN/Creatinine Ratio 27.7 H (10-20) Glucose 153 H (70-99) mg/dl POC Glucose (70-99) mg/dl Lactate 2.9 H* (0.4-2.0) mmol/L Magnesium (1.8-2.4) mg/dl Total Bilirubin (0.2-1) mg/dl Direct Bilirubin (0-0.2) mg/dl AST (15-37) U/L Alkaline Phosphatase (45-117) U/L Total Protein (6.4-8.2) gm/dl Albumin (3.4-5.0) gm/dl Procalcitonin (0-0.5) ng/ml 10/20/20 10/20/20 10/20/20 Range/Units 14:33 19:30 19:30 WBC (4.8-10.8) K/uL RBC (4.7-6.1) M/uL Hgb (14.0-18.0) g/dL POC Hgb (14.0-18.0) g/dl Hct (42-52) % POC Hct (42-52) % MCV (80-100) fL MCH (25-34) pg Absolute Nucleated RBC (0-0) K/uL APTT (21.0-31.0) Seconds POC pH (7.35-7.45) POC pO2 (80-95) mmHg POC HCO3 (19-24) sonali/L POC Total CO2 (24-31) mmol/L POC Base Excess (-9-1.8) sonali/L ABG pH (Temp Correct) (7.35-7.45) POC ABG O2 Sat (90-95) % VBG pH 7.44 H 7.48 H (7.36-7.41) BUN (7-18) mg/dl BUN/Creatinine Ratio (10-20) Glucose (70-99) mg/dl POC Glucose (70-99) mg/dl Lactate 2.7 H* (0.4-2.0) mmol/L Magnesium (1.8-2.4) mg/dl Total Bilirubin (0.2-1) mg/dl Direct Bilirubin (0-0.2) mg/dl AST (15-37) U/L Alkaline Phosphatase (45-117) U/L Total Protein (6.4-8.2) gm/dl Albumin (3.4-5.0) gm/dl Procalcitonin (0-0.5) ng/ml 10/20/20 10/21/20 10/21/20 Range/Units 19:30 04:21 04:26 WBC (4.8-10.8) K/uL RBC (4.7-6.1) M/uL Hgb (14.0-18.0) g/dL POC Hgb 12.9 L (14.0-18.0) g/dl Hct (42-52) % POC Hct 38 L (42-52) % MCV (80-100) fL MCH (25-34) pg Absolute Nucleated RBC (0-0) K/uL APTT (21.0-31.0) Seconds POC pH 7.49 H (7.35-7.45) POC pO2 79 L (80-95) mmHg POC HCO3 32 H (19-24) sonali/L POC Total CO2 33 H (24-31) mmol/L POC Base Excess 9.0 H (-9-1.8) sonali/L ABG pH (Temp Correct) 7.483 H (7.35-7.45) POC ABG O2 Sat 96.0 H (90-95) % VBG pH (7.36-7.41) BUN (7-18) mg/dl BUN/Creatinine Ratio (10-20) Glucose (70-99) mg/dl POC Glucose 139 H (70-99) mg/dl Lactate (0.4-2.0) mmol/L Magnesium (1.8-2.4) mg/dl Total Bilirubin (0.2-1) mg/dl Direct Bilirubin (0-0.2) mg/dl AST (15-37) U/L Alkaline Phosphatase (45-117) U/L Total Protein (6.4-8.2) gm/dl Albumin (3.4-5.0) gm/dl Procalcitonin 3.67 H (0-0.5) ng/ml 10/21/20 10/21/20 10/21/20 Range/Units 05:31 05:31 05:37 WBC 28.20 H (4.8-10.8) K/uL RBC 3.22 L (4.7-6.1) M/uL Hgb 11.8 L (14.0-18.0) g/dL POC Hgb (14.0-18.0) g/dl Hct 35.7 L (42-52) % POC Hct (42-52) % MCV 110.9 H (80-100) fL MCH 36.6 H (25-34) pg Absolute Nucleated RBC 0.31 H (0-0) K/uL APTT (21.0-31.0) Seconds POC pH (7.35-7.45) POC pO2 (80-95) mmHg POC HCO3 (19-24) sonali/L POC Total CO2 (24-31) mmol/L POC Base Excess (-9-1.8) sonali/L ABG pH (Temp Correct) (7.35-7.45) POC ABG O2 Sat (90-95) % VBG pH (7.36-7.41) BUN 30 H (7-18) mg/dl BUN/Creatinine Ratio 33.8 H (10-20) Glucose 141 H (70-99) mg/dl POC Glucose (70-99) mg/dl Lactate 2.5 H* (0.4-2.0) mmol/L Magnesium 2.7 H (1.8-2.4) mg/dl Total Bilirubin 10.6 H (0.2-1) mg/dl Direct Bilirubin 8.3 H (0-0.2) mg/dl AST 137 H (15-37) U/L Alkaline Phosphatase 182 H (45-117) U/L Total Protein 6.1 L (6.4-8.2) gm/dl Albumin 2.3 L (3.4-5.0) gm/dl Procalcitonin (0-0.5) ng/ml PG Care Time/CCT Total # of Minutes Spent Total Time Spent with Patient: Total time spent is greater than 50% in coordination of care (as documented) at patient's floor/unit and/or counseling patient: Coding Level of Care Code 56074 Subseq Hosp Care Lvl 3 Diagnoses Alcohol abuse F10.10 Alcoholic encephalopathy G31.2; F10.20 Acute respiratory failure J96.00 Pancreatitis K85.20 Acute pancreatitis complication: unspecified Chronicity: acute Pancreatitis type: alcohol induced (1) Pancreatitis Acute pancreatitis complication: unspecified Chronicity: acute Pancreatitis type: alcohol induced Qualified Code(s): K85.20 - Alcohol induced acute pancreatitis without necrosis or infection
[2020-10-21] MEDS ORDERED: NORMOSOL-R 1,000 ML IV SCH (10:15)
[2020-10-21] MEDS: ALBUMIN 5% 250 ML IV SCH ×2 (11:52→14:10)
--- NOTE | 2020-10-21 12:17 | Surgery Progress Note ---
Date of Service October 21, 2020 Assessment & Plan (1) Pneumatosis of intestines: 40 year-old male admitted to hospital on 10/13/2020 with alcoholic pancreatitis, who developed alcoholic withdrawal and encephalopathy and eventually acute respiratory failure requiring intubation now with distended colon and small bowel, questionable transition in sigmoid colon and pneumatosis of the descending colon on repeat CT scan. Lactic acid 2.9 --> 2.7 --> 2.5 (today) T. bili and Direct bilirubin have been elevated since admission. t. bili 8.9 --> 13.2 (10/17/20) --> 10.1 --> 10.6 today d. bili 7.3 --> 11.1 (10/17/2020) --> 8.0 --> 8.3 today Ultrasound showing sludge filled gallbladder, CBD not visualized Leukocytosis increased to 28K from 15K Febrile last night tmax of 39.1 Plan: Unsure of etiology of the pneumatosis. Given the high elevation of t. bili and d. bili on admission and throughout hospitalization question of gallbladder pathology. Ultrasound showing sludge filled gallbladder and CBD not visualized. Given fever, increased leukocytosis , and sludge in gallbladder concern for possible cholangitis. Recommend ERCP to further evaluate. No immediate surgical intervention recommended at this time. Continue current ICU management Dr. Bajwa recommends transfer to tertiary center if no plan for ERCP here at [facility]. (2) Alcoholic encephalopathy: (3) Acute respiratory failure: Dr. Bajwa has seen and examined patient, and discussed recommendations above with Dr. Condon. Admission and Anticipated Discharge Date Admission Date: October 14, 2020 Subjective patient still ventilated, unable to obtaine ROS Physical Exam Constitutional: + ill appearing and + mechanically ventilated; no acute distress Gastrointestinal (Abdomen): Inspection/Auscultation: + abdomen distended (moderately distended) unable to determine if patient tender given sedation. Has rectal tube in for lactulose enema with some brown stool present Urinary catheter with dark tea colored urine Skin: + jaundice Results & Data ([facility]) Vital Signs (Past 12 Hours) Vital Signs Temp Pulse Resp BP Pulse Ox 10/21/20 11:03 104 H 16 92 10/21/20 11:02 36.9 C 104 H 115/80 92 10/21/20 10:02 36.7 C 100 H 113/77 92 10/21/20 09:02 37.1 C 103 H 109/77 93 10/21/20 08:02 37.2 C 101 H 113/83 94 10/21/20 07:40 108 H 10/21/20 07:06 109 H 16 94 10/21/20 07:02 37.2 C 110 H 117/83 95 10/21/20 06:02 37.4 C 108 H 118/79 94 10/21/20 05:02 37.4 C 108 H 115/76 98 10/21/20 04:20 112 H 120/80 10/21/20 04:10 113 H 15 95 10/21/20 04:02 37.6 C H 115 H 120/80 95 10/21/20 03:02 37.9 C H 105 H 116/74 97 10/21/20 02:15 118 H 21 97 10/21/20 02:02 38.2 C H 117 H 116/72 96 10/21/20 01:55 124 H 106/65 10/21/20 01:02 38.5 C H 130 H 106/65 92 Laboratory Results 10/21/20 10/21/20 10/21/20 Range/Units 05:37 05:31 05:31 WBC 28.20 H RBC 3.22 L Hgb 11.8 L POC Hgb (14.0-18.0) g/dl Hct 35.7 L POC Hct (42-52) % MCV 110.9 H MCH 36.6 H MCHC 33.1 RDW Std Deviation RDW Coeff of Arabella Plt Count 178 MPV Absolute Nucleated RBC 0.31 H Nucleated RBC % (auto) 1.1 Platelet Estimate APTT (21.0-31.0) Seconds PTT Ratio Sample Site POC pH (7.35-7.45) POC pCO2 (35-46) mmHg POC pO2 (80-95) mmHg POC HCO3 (19-24) sonali/L POC Total CO2 (24-31) mmol/L POC Base Excess (-9-1.8) sonali/L ABG pH (Temp Correct) (7.35-7.45) ABG pCO2 (Temp Corrct (35-46) mmHg POC ABG pO2 at Pt Temp POC ABG O2 Sat (90-95) % Won Test VBG pH (7.36-7.41) VBG pCO2 (38-50) mmHg VBG pO2 mmHg VBG HCO3 mmol/L VBG O2 Saturation % VBG Base Excess mEq/L Barometric Pressure mm/Hg O2 Delivery Device POC O2 Rate Minute Ventilation POC FiO2 % Tidal Volume PEEP POC Sodium (135-144) mmol/L Sodium 143 (136-145) mmol/L POC Potassium (3.3-5.0) mmol/L Potassium 4.3 (3.5-5.1) mmol/L Chloride 107 (98-107) mmol/L Carbon Dioxide 31 (21-32) mmol/L Anion Gap 5.0 (3-11) BUN 30 H (7-18) mg/dl Creatinine 0.88 (0.6-1.4) mg/dl Est Cr Clr Drug Dosing 114.6 ml/min Est GFR ( Amer) 124.5 Est GFR (Non-Af Amer) 107.5 BUN/Creatinine Ratio 33.8 H (10-20) Glucose 141 H (70-99) mg/dl POC Glucose (70-99) mg/dl Lactate 2.5 H* (0.4-2.0) mmol/L Calcium 9.5 (8.5-10.1) mg/dl Ionized Calcium (1.12-1.32) mmol/L Phosphorus 3.1 Magnesium 2.7 H Total Bilirubin 10.6 H Direct Bilirubin 8.3 H AST 137 H ALT 74 Alkaline Phosphatase 182 H Total Protein 6.1 L Albumin 2.3 L Procalcitonin (0-0.5) ng/ml Blood Type Antibody Screen 10/21/20 10/21/20 10/21/20 Range/Units 04:26 04:21 03:29 WBC RBC Hgb POC Hgb 12.9 L (14.0-18.0) g/dl Hct POC Hct 38 L (42-52) % MCV MCH MCHC RDW Std Deviation RDW Coeff of Arabella Plt Count MPV Absolute Nucleated RBC Nucleated RBC % (auto) Platelet Estimate APTT (21.0-31.0) Seconds PTT Ratio Sample Site L Radial POC pH 7.49 H (7.35-7.45) POC pCO2 42 (35-46) mmHg POC pO2 79 L (80-95) mmHg POC HCO3 32 H (19-24) sonali/L POC Total CO2 33 H (24-31) mmol/L POC Base Excess 9.0 H (-9-1.8) sonali/L ABG pH (Temp Correct) 7.483 H (7.35-7.45) ABG pCO2 (Temp Corrct 43 (35-46) mmHg POC ABG pO2 at Pt Temp 82 POC ABG O2 Sat 96.0 H (90-95) % Won Test Pass VBG pH (7.36-7.41) VBG pCO2 (38-50) mmHg VBG pO2 mmHg VBG HCO3 mmol/L VBG O2 Saturation % VBG Base Excess mEq/L Barometric Pressure mm/Hg O2 Delivery Device Ventilator POC O2 Rate 14 Minute Ventilation 6.3 POC FiO2 50 % Tidal Volume 450 PEEP 8 POC Sodium 143 (135-144) mmol/L Sodium (136-145) mmol/L POC Potassium 3.9 (3.3-5.0) mmol/L Potassium (3.5-5.1) mmol/L Chloride (98-107) mmol/L Carbon Dioxide (21-32) mmol/L Anion Gap (3-11) BUN (7-18) mg/dl Creatinine (0.6-1.4) mg/dl Est Cr Clr Drug Dosing ml/min Est GFR ( Amer) Est GFR (Non-Af Amer) BUN/Creatinine Ratio (10-20) Glucose (70-99) mg/dl POC Glucose 139 H (70-99) mg/dl Lactate (0.4-2.0) mmol/L Calcium (8.5-10.1) mg/dl Ionized Calcium (1.12-1.32) mmol/L Phosphorus Magnesium Total Bilirubin Direct Bilirubin AST ALT Alkaline Phosphatase Total Protein Albumin Procalcitonin (0-0.5) ng/ml Blood Type Antibody Screen 10/21/20 10/21/20 10/20/20 Range/Units 03:29 03:29 19:30 WBC Cancelled RBC Cancelled Hgb Cancelled POC Hgb (14.0-18.0) g/dl Hct Cancelled POC Hct (42-52) % MCV Cancelled MCH Cancelled MCHC Cancelled RDW Std Deviation Cancelled RDW Coeff of Arabella Cancelled Plt Count Cancelled MPV Cancelled Absolute Nucleated RBC Cancelled Nucleated RBC % (auto) Cancelled Platelet Estimate Cancelled APTT (21.0-31.0) Seconds PTT Ratio Sample Site POC pH (7.35-7.45) POC pCO2 (35-46) mmHg POC pO2 (80-95) mmHg POC HCO3 (19-24) sonali/L POC Total CO2 (24-31) mmol/L POC Base Excess (-9-1.8) sonali/L ABG pH (Temp Correct) (7.35-7.45) ABG pCO2 (Temp Corrct (35-46) mmHg POC ABG pO2 at Pt Temp POC ABG O2 Sat (90-95) % Won Test VBG pH (7.36-7.41) VBG pCO2 (38-50) mmHg VBG pO2 mmHg VBG HCO3 mmol/L VBG O2 Saturation % VBG Base Excess mEq/L Barometric Pressure mm/Hg O2 Delivery Device POC O2 Rate Minute Ventilation POC FiO2 % Tidal Volume PEEP POC Sodium (135-144) mmol/L Sodium Cancelled (136-145) mmol/L POC Potassium (3.3-5.0) mmol/L Potassium Cancelled (3.5-5.1) mmol/L Chloride Cancelled (98-107) mmol/L Carbon Dioxide Cancelled (21-32) mmol/L Anion Gap Cancelled (3-11) BUN Cancelled (7-18) mg/dl Creatinine Cancelled (0.6-1.4) mg/dl Est Cr Clr Drug Dosing Cancelled ml/min Est GFR ( Amer) Cancelled Est GFR (Non-Af Amer) Cancelled BUN/Creatinine Ratio Cancelled (10-20) Glucose Cancelled (70-99) mg/dl POC Glucose (70-99) mg/dl Lactate (0.4-2.0) mmol/L Calcium Cancelled (8.5-10.1) mg/dl Ionized Calcium (1.12-1.32) mmol/L Phosphorus Cancelled Magnesium Cancelled Total Bilirubin Cancelled Direct Bilirubin Cancelled AST Cancelled ALT Cancelled Alkaline Phosphatase Cancelled Total Protein Cancelled Albumin Cancelled Procalcitonin 3.67 H (0-0.5) ng/ml Blood Type Antibody Screen 10/20/20 10/20/20 10/20/20 Range/Units 19:30 19:30 14:33 WBC RBC Hgb POC Hgb (14.0-18.0) g/dl Hct POC Hct (42-52) % MCV MCH MCHC RDW Std Deviation RDW Coeff of Arabella Plt Count MPV Absolute Nucleated RBC Nucleated RBC % (auto) Platelet Estimate APTT (21.0-31.0) Seconds PTT Ratio Sample Site POC pH (7.35-7.45) POC pCO2 (35-46) mmHg POC pO2 (80-95) mmHg POC HCO3 (19-24) sonali/L POC Total CO2 (24-31) mmol/L POC Base Excess (-9-1.8) sonali/L ABG pH (Temp Correct) (7.35-7.45) ABG pCO2 (Temp Corrct (35-46) mmHg POC ABG pO2 at Pt Temp POC ABG O2 Sat (90-95) % Won Test VBG pH 7.48 H 7.44 H (7.36-7.41) VBG pCO2 40 46 (38-50) mmHg VBG pO2 54 42 mmHg VBG HCO3 29 30 mmol/L VBG O2 Saturation 87.0 75.0 % VBG Base Excess 5.0 5.3 mEq/L Barometric Pressure 738.7 739.4 mm/Hg O2 Delivery Device POC O2 Rate Minute Ventilation POC FiO2 % Tidal Volume PEEP POC Sodium (135-144) mmol/L Sodium (136-145) mmol/L POC Potassium (3.3-5.0) mmol/L Potassium (3.5-5.1) mmol/L Chloride (98-107) mmol/L Carbon Dioxide (21-32) mmol/L Anion Gap (3-11) BUN (7-18) mg/dl Creatinine (0.6-1.4) mg/dl Est Cr Clr Drug Dosing ml/min Est GFR ( Amer) Est GFR (Non-Af Amer) BUN/Creatinine Ratio (10-20) Glucose (70-99) mg/dl POC Glucose (70-99) mg/dl Lactate 2.7 H* (0.4-2.0) mmol/L Calcium (8.5-10.1) mg/dl Ionized Calcium (1.12-1.32) mmol/L Phosphorus Magnesium Total Bilirubin Direct Bilirubin AST ALT Alkaline Phosphatase Total Protein Albumin Procalcitonin (0-0.5) ng/ml Blood Type Antibody Screen 10/20/20 10/20/20 10/20/20 Range/Units 14:33 14:33 14:33 WBC RBC Hgb POC Hgb (14.0-18.0) g/dl Hct POC Hct (42-52) % MCV MCH MCHC RDW Std Deviation RDW Coeff of Arabella Plt Count MPV Absolute Nucleated RBC Nucleated RBC % (auto) Platelet Estimate APTT (21.0-31.0) Seconds PTT Ratio Sample Site POC pH (7.35-7.45) POC pCO2 (35-46) mmHg POC pO2 (80-95) mmHg POC HCO3 (19-24) sonali/L POC Total CO2 (24-31) mmol/L POC Base Excess (-9-1.8) sonali/L ABG pH (Temp Correct) (7.35-7.45) ABG pCO2 (Temp Corrct (35-46) mmHg POC ABG pO2 at Pt Temp POC ABG O2 Sat (90-95) % Won Test VBG pH (7.36-7.41) VBG pCO2 (38-50) mmHg VBG pO2 mmHg VBG HCO3 mmol/L VBG O2 Saturation % VBG Base Excess mEq/L Barometric Pressure mm/Hg O2 Delivery Device POC O2 Rate Minute Ventilation POC FiO2 % Tidal Volume PEEP POC Sodium (135-144) mmol/L Sodium 143 (136-145) mmol/L POC Potassium (3.3-5.0) mmol/L Potassium 3.8 (3.5-5.1) mmol/L Chloride 106 (98-107) mmol/L Carbon Dioxide 30 (21-32) mmol/L Anion Gap 7.0 (3-11) BUN 27 H (7-18) mg/dl Creatinine 0.97 (0.6-1.4) mg/dl Est Cr Clr Drug Dosing 104.0 ml/min Est GFR ( Amer) 112.7 Est GFR (Non-Af Amer) 97.3 BUN/Creatinine Ratio 27.7 H (10-20) Glucose 153 H (70-99) mg/dl POC Glucose (70-99) mg/dl Lactate 2.9 H* (0.4-2.0) mmol/L Calcium 9.4 (8.5-10.1) mg/dl Ionized Calcium 1.19 (1.12-1.32) mmol/L Phosphorus Magnesium Total Bilirubin Direct Bilirubin AST ALT Alkaline Phosphatase Total Protein Albumin Procalcitonin (0-0.5) ng/ml Blood Type Antibody Screen 10/20/20 10/20/20 Range/Units 14:33 14:33 WBC RBC Hgb POC Hgb (14.0-18.0) g/dl Hct POC Hct (42-52) % MCV MCH MCHC RDW Std Deviation RDW Coeff of Arabella Plt Count MPV Absolute Nucleated RBC Nucleated RBC % (auto) Platelet Estimate APTT 35.2 H (21.0-31.0) Seconds PTT Ratio 1.3 Sample Site POC pH (7.35-7.45) POC pCO2 (35-46) mmHg POC pO2 (80-95) mmHg POC HCO3 (19-24) sonali/L POC Total CO2 (24-31) mmol/L POC Base Excess (-9-1.8) sonali/L ABG pH (Temp Correct) (7.35-7.45) ABG pCO2 (Temp Corrct (35-46) mmHg POC ABG pO2 at Pt Temp POC ABG O2 Sat (90-95) % Won Test VBG pH (7.36-7.41) VBG pCO2 (38-50) mmHg VBG pO2 mmHg VBG HCO3 mmol/L VBG O2 Saturation % VBG Base Excess mEq/L Barometric Pressure mm/Hg O2 Delivery Device POC O2 Rate Minute Ventilation POC FiO2 % Tidal Volume PEEP POC Sodium (135-144) mmol/L Sodium (136-145) mmol/L POC Potassium (3.3-5.0) mmol/L Potassium (3.5-5.1) mmol/L Chloride (98-107) mmol/L Carbon Dioxide (21-32) mmol/L Anion Gap (3-11) BUN (7-18) mg/dl Creatinine (0.6-1.4) mg/dl Est Cr Clr Drug Dosing ml/min Est GFR ( Amer) Est GFR (Non-Af Amer) BUN/Creatinine Ratio (10-20) Glucose (70-99) mg/dl POC Glucose (70-99) mg/dl Lactate (0.4-2.0) mmol/L Calcium (8.5-10.1) mg/dl Ionized Calcium (1.12-1.32) mmol/L Phosphorus Magnesium Total Bilirubin Direct Bilirubin AST ALT Alkaline Phosphatase Total Protein Albumin Procalcitonin (0-0.5) ng/ml Blood Type O Negative Antibody Screen NEGATIVE Diagnostic Findings BILIARY ULTRASOUND CLINICAL HISTORY: Abdominal pain. COMPARISON STUDY: CT scan dated 10/20/2020 FINDINGS: The study is limited from a technical standpoint. The patient was ventilated unable to cooperate with breath-holding or positioning. The liver is of increased echogenicity, consistent with hepatic steatosis. No focal masses are visualized. No pancreatic lesions are visualized. There was gallbladder sludge. There was no significant wall thickening. The common bile duct was nonvisualized. There is a small amount of ascites present. IMPRESSION: 1. Technically limited study 2. Sludge-filled gallbladder. No significant wall thickening. No intrahepatic biliary ductal dilatation 3. Nonvisualization of the common bile duct 4. Hepatic steatosis KUB HISTORY: ileus/ obstruction? COMPARISON: Abdomen and pelvis CT 10/20/2020. FINDINGS: There is again noted pneumatosis along the descending colon. Dilated gas-filled loops of large and small bowel are also not significant changed. The transverse colon measures up to 10 cm in diameter. The dilated small bowel measures up to 3.7 cm in diameter. The distal colon is decompressed. However, there is gas within the rectum. Nasogastric tube terminates in the stomach. This is also unchanged. No renal calculi. No ureteral calculi. IMPRESSION: 1. No change in the descending colon pneumatosis. 2. Dilated gas-filled loops of large and small bowel persists. The distal colon as decompressed. However, there remains gas within the rectum. Therefore, this could represent a partial large bowel obstruction versus an ileus. 3. Nasogastric tube terminates in the stomach.
--- NOTE | 2020-10-21 16:03 | CT Scan Report ---
CT OF THE ABDOMEN AND PELVIS WITHOUT CONTRAST CLINICAL HISTORY: Pneumatosis. COMPARISON STUDY: CT of the abdomen and pelvis October 20, 2020. KUB performed earlier today. TECHNIQUE: Axial images of the abdomen and pelvis were obtained without IV contrast. Images were revi ewed in the axial, sagittal, and coronal planes. Automated exposure control was utilized for the miguel angel dy. A dose lowering technique was utilized adhering to the principles of ALARA. FINDINGS: Visualized portions of the lower chest demonstrate persistent left lower lobe collapse. The re is a small left pleural effusion. Trace right pleural effusion is noted. Segmental right lower lob e atelectasis is noted. Tree-in-bud nodules within the right lower lobe are again noted. The appearan ce of the lower chest is similar to prior CT of October 20, 2020. Marked hepatic steatosis is again noted. Tip of nasogastric tube is within the distal body of the sto mach. Evaluation of the abdomen and pelvis is suboptimal on this unenhanced examination. Hyperdense m aterial within the gallbladder likely reflects vicarious excretion of contrast. There is no biliary o r pancreatic ductal dilatation. Minimal peripancreatic infiltration is similar to prior examination. No peripancreatic fluid collection is present. Unenhanced images of the adrenal glands and spleen are unremarkable. There are striated bilateral nephrograms. There is no hydronephrosis. Size of the kidn eys is normal. Pneumatosis of the descending colon has mildly increased since CT of October 20, 2020. T here is no mesenteric or portal venous gas. There is no free air. Moderate small large bowel dilatati on is similar to prior exam. Apparent transition point within the distal descending colon is unchange d. Anasarca is noted. A small amount of ascites within the abdomen and pelvis is similar to prior exa m. IMPRESSION: 1. Mild increase in pneumatosis of the descending colon with mild adjacent infiltration. Although non specific, this can be seen in the setting of ischemic colitis. 2. No significant change in small and large bowel dilatation. Apparent transition point at the distal descending colon. The findings could reflect an ileus or a large bowel obstruction. 3. Severe hepatic steatosis. 4. No significant change in a small amount of ascites. Body wall edema. 5. Left lower lobe collapse and segmental right lower lobe atelectasis with small bilateral pleural e ffusions and mucous plugging. The findings favor pneumonia or aspiration pneumonitis. ACT 112: Negative or not required by law. Electronically signed by: Kennedy Gross M.D. 10/21/2020 4:01 PM
[2020-10-21 17:03] LABS: Base Excess VBG 7.1 mEq/L; Oxygen Saturation VBG 78.4 %; pH VBG 7.45 (7.36-7.41)
--- NOTE | 2020-10-21 17:19 | Discharge Summary ---
Date of Service October 21, 2020 Admission HPI Per Admitting Provider The patient is a 40-year-old male with a past medical history including leg cellulitis, who presents to the emergency department with generalized abdominal pains and inability to eat food for the past 4 days. He denies any recent travel or sick exposures. He reports that his last alcohol intake was earlier in the day before arrival. Work-up in the emergency department included the following abnormal laboratories: Sodium 129, potassium 3.0, total bilirubin 8.9, direct bilirubin 7.3, AST 247, alkaline phosphatase 531, albumin 3.2, lipase 4543, magnesium 1.6, alcohol level 201.7. Patient was COVID-19 negative in the ED Imaging studies, CT of abdomen and pelvis with contrast: Diffuse fatty liver. Over distention of the gallbladder. Mild ascites with extensive fluid and stranding surrounding the pancreas, suggesting pancreatitis. Borderline thickening of the wall to the proximal jejunum indicating a possible enteritis. Moderate fecal debris within the right colon. Mild to moderate free fluid in the pelvis. Principal Diagnosis Pneumotosis Discharge Exam Constitutional + ill appearing, + thin, + frail appearing and + mechanically ventilated Eyes sclerae not anicteric Neck trachea midline, no thyromegaly Respiratory symmetric chest movement; no respiratory distress Auscultation: lungs clear to auscultation bilaterally Cardiovascular Rate/Rhythm: regular rhythm and + tachycardic Heart Sounds: normal S1 and normal S2; no murmur Extremities: normal capillary refill; no edema Gastrointestinal (Abdomen) Inspection/Auscultation: abdomen normal to inspection and normal bowel sounds Percussion/Palpation: abdomen soft; abdomen nontender Skin normal turgor, + jaundice and + dry skin Neurologic CN's II-XI intact bilaterally and + obtunded; no focal motor deficits Discharge Data Allergies Allergy/AdvReac Type Severity Reaction Status Date / Time No Known Allergies Allergy Unknown Verified 10/13/20 22:02 Consultations 10/13/20 23:25 ED Decision to Admit Stat 10/14/20 01:39 Consult Case Management - Discharge Planning Routine 10/17/20 18:52 Consult Case Management - Discharge Planning Routine Consult Client Portfolio Manager Routine 10/17/20 23:19 Consult Gastroenterology Routine 10/20/20 14:11 Consult General Surgery Stat Ordered Studies 10/13/20 20:58 CT abd pelvis IV con only Urgent 10/16/20 07:18 CT angio chest PE protocol Routine 10/17/20 21:28 CT abd pelvis IV con only Stat 10/18/20 01:58 CT head/brain wo con Urgent 10/20/20 08:27 MR brain wo/w con Routine 10/20/20 10:48 CT abd pelvis oral and IV con Routine 10/20/20 15:31 US liver Urgent 10/21/20 15:00 CT abd pelvis wo con Urgent Hospital Course (1) Pneumatosis of intestines: worsening on imaging transfer to [facility] case discussed by Dr. Condon with white lead filterer at [facility] (2) Acute respiratory failure: acute respiratory failure was combination of aspiration pneumonia, benzodiazepine use for alcohol withdrawal, and initiation of some phenobarbital to try to help reduce his alcohol withdrawal. he remains sedated and ventilated, no plans for extubation MRI brain without acute changes, EEG with encephalopathy (3) Alcohol withdrawal: remains sedated will need strict alcohol abstinence pts Discriminant function was low on admission thus making pt NOT be a candidate for glucocorticoids and having alcoholic hepatitis ruled out at this time, his inr remains slighlty elevated but low (4) Pancreatitis: Alcoholic pancreatitis/diffuse fatty liver/jaundice/ascites- CT abdomen pelvis 10/13/20 IMPRESSION: 1. Moderate edema/fluid surrounding the edematous pancreas. This likely represents an acute pancreatitis. Recommend correlation with pancreatic enzymes. 2. Mildly distended gallbladder which is likely secondary to the acute pancreatitis. 3. Hepatomegaly demonstrating fatty change. 4. Small amount of scattered ascites. 5. Moderate thickening of the distal esophagus. 6. Mild thickening at the ascending colon. no obstruction noted lipase is improving slowly Abd US with sludge in gall bladder CT abd/pelvis 10/20 with some improvement in peripancreatic inflammation (5) Tachycardia: tachycardia from withdrawal, using prn metoprolol, CTA did not show PE, Ehco with EF 45% probably from alcohol, improved with better sedation Echocardiogram showed ejection fraction slightly depressed at 45-50 consider this alcohol-related (6) Fatty liver: See above (7) Jaundice: bilirubin secondary to alcoholic hepatitis, discriminant function score low, no need for steroids no evidence of biliary obstruction on imaging (8) Alcohol abuse: Thiamine 200 mg iv tid Folic acid 1 mg p.o. daily Nephrocaps 1 p.o. daily needs inpatient alcohol rehab once he recovers from acute illness (9) Ascites: Paracentesis not indicated, no significant fluid (10) Hypokalemia: replete labs as needed (11) Hypomagnesemia: See above (12) Alcoholic encephalopathy: did have mildly eleveated ammonia on lacutulose MRI brain: no acute findings EEG: encephalopathy Total Time Total Time Spent Total Time Spent (In Minutes): 32 Discharge Plan Discharge Items Patient Disposition: Transfer Acute Care Hospital Reason For Visit: ALCOHOLIC PANCREATITIS, ALCOHOL WITHDRAWAL Discharge Diagnosis: Alcohol pancreatitis Acute hypoxic respiratory failure Worsening pneumotosis Condition on Discharge: Critical Goals: transfer to [facility] Activity: As commented below Activity Comment: bedrest Non-emergency contact: Primary Care Provider Call non-emergency contact if: you have any medication questions Follow-up/Referrals: PCP,NO [Primary Care Provider] - Diet: Nothing by Mouth Addtl Attending Provider Instructions: transfer to [facility] Pending Studies at Discharge: No Stand-Alone Forms: [employer] Skilled Items Patient informed of condition?: Yes DNR: No Discharge Level of Care: Other Communicable Disease: No Discharge Prognosis: Deteriorating Lines: PICC Urinary Catheter: Yes Medications and DC Order Prescriptions: Discontinued multivitamin [Multiple Vitamin] Tablet 1 tab PO DAILY RF: 0 ibuprofen 200 mg Tablet 200 mg PO Q6H PRN (Reason: Pain) RF: 0 Discharge Orders: Discharge Order (Routine); Ordered 10/21/20 Ordered By: Larry Garcia Admission Data Admit Date/Time: 10/14/20 00:34 Attending Provider: Larry Garcia Admit Provider: Jose Lan Primary Care Provider: PCP,NO Other Providers: Shailesh Bourgeois ; Sloan Smith ; Marv Arroyo ; Saida Bajwa Coding Level of Care Code D/C Day Management >30 mins Diagnoses Pneumatosis of intestines K63.89 Acute respiratory failure J96.00 Alcohol withdrawal F10.239 Pancreatitis K85.20 Acute pancreatitis complication: unspecified Chronicity: acute Pancreatitis type: alcohol induced Tachycardia R00.0 Fatty liver K76.0 Jaundice R17 Alcohol abuse F10.10 Ascites R18.8 Hypokalemia E87.6 Hypomagnesemia E83.42 Alcoholic encephalopathy G31.2; F10.20
== END 2020-10-21 18:45 | disposition short-term general hospital (02) | DRG 438 ==
LOC: ED 19:44 → SUATTDRO 10-14 00:34 → 3N 10-14 00:34 → 2E 10-14 11:16 → 1E 10-17 18:22